=== PATIENT | female | born 1940 | race Caucasian/White ===

== ENCOUNTER 2025-01-05 15:40 | Inpatient (IN) | payer MEDICARE, MEDICAID ==
[~2025-01-05] VITALS: Ht 167.6 cm; Wt 76.7 kg
[2025-01-05] MEDS: SODIUM CHLORIDE 0.9% 1,000 ML IV SCH (02:10)
[2025-01-05 15:44] VITALS: PULSE 82; RESP 16; O2SAT 97
--- NOTE | 2025-01-05 15:56 | ED.PDOC ---
Back pain HPI HPI Comments 84y F who presents to the ED via EMS for chief complaint of back pain. EMS states pt is resident at [facility] and states pt who has history of dementia states pt was complaining of abdominal pain and EMS was called. EMS arrived on scene and states pt did not have abdominal pain but states she was having back pain. Pt rates her pain 10/10, constant, with no associated exacerbating or relieving factors. EMS notes pt did have diarrhea episode prior to ED arrival. Pt now in the ED, states she is having associated nausea and vomiting and states she is having pain on skin. Pt is noted to be [id number]. Pt denies any other symptoms at this time. Chief Complaint: Body Pain Time Seen by MD: 15:52 Reviewed Notes: Nurses Notes, Medications, Allergies Allergies: Coded Allergies: NO KNOWN ALLERGIES (Unverified , 01/05/25) Information Source: Patient, Emergency Med Personnel Mode of Arrival: EMS Brought in by: EMS Timing: Hours Duration: Since onset Location of Back pain: (L) Lower back, (B) Lower back Severity: Moderate Prehospital treatment: None Onset: Spontaneous History of: None Modifying Factors: Nothing Past Medical History PAST MEDICAL HISTORY: Asthma, CAD, CVA, Dementia, High Lipids Surgical History: Unknown [employer] History: Unknown Family History Family History: Unknown Social History Smoker: Quit Greater Than 1 Year Alcohol: Denies ETOH Use Drugs: Denies Drug Use Lives In: Assisted Care Constitutional: denies: chills, diaphoresis, fatigue, fever, malaise, sweats, weakness, others EENTM: denies: blurred vision, double vision, ear bleeding, ear discharge, ear drainage, ear pain, ear ringing, eye pain, eye redness, hearing loss, mouth pain, mouth swelling, nasal discharge, nose bleeding, nose congestion, nose pain, photophobia, tearing, throat pain, throat swelling, voice changes, others Respiratory: denies: cough, hemoptysis, orthopnea, SOB at rest, shortness of breath, SOB with excertion, stridor, wheezing, others Cardiovascular: denies: chest pain, dizzy spells, diaphoresis, Dyspnea on exertion, edema, irregular heart beat, left arm pain, lightheadedness, palpitations, PND, syncope, others Gastrointestinal: denies: abdomen distended, abdominal pain, blood streaked bowels, constipated, diarrhea, dysphagia, difficulty swallowing, hematemesis, melena, nausea, poor appetite, poor fluid intake, rectal bleeding, rectal pain, vomiting, others Genitourinary: denies: abnormal vagina bleeding, burning, dyspareunia, dysuria, flank pain, frequency, hematuria, incontinence, pain, , vagina discharge, urgency, others Neurological: denies: dizziness, fainting, headache, left sided numbness, left sided weakness, numbness, paresthesia, pre-existing deficit, right sided numbness, right sided weakness, seizure, speech problems, tingling, tremors, weakness, others Musculoskeletal: reports: back pain; denies: gout, joint pain, joint swelling, muscle pain, muscle stiffness, neck pain, others Integumetry: denies: bruises, change in color, change in hair/nails, dryness, laceration, lesions, lumps, rash, wounds, others Allergic/Immunocompromised: denies: Difficulty Healing, Frequent Infections, Hives, Itching, others Hematologic/Lymphatic: denies: anemia, blood clots, easy bleeding, easy bru ising, swollen glands, others Endocrine: denies: excessive hunger, excessive sweating, excessive thirst, e xcessive urination, flushing, intolerance to cold, intolerance to heat, unexplained weight gain, unexplained weight loss, others Psychiatric: denies: anxiety, bipolar disorder, depression, hopeless, panic disorder, schizophrenia, sleepless, suicidal, others All Other Systems: Reviewed and Negative Physical Exam General Appearance: Moderate Distress, Obese HEENT: Normal ENT Inspection, Pharynx Normal, TMs Normal Neck: Full Range of Motion, Non-Tender, Normal, Normal Inspection Respiratory: Chest Non-Tender, Lungs Clear, No Accessory Muscle Use, No Respiratory Distress, Normal Breath Sounds Cardiovascular: No Edema, No JVD, No Murmur, No Gallop, Normal Peripheral Pulses, Regular Rate/Rhythm Breast Exam: Deferred Gastrointestinal: Diffuse, No Organomegaly, Normal Bowel Sounds, Soft, Tenderness Genitalia: Deferred Pelvic: Deferred Rectal: Deferred Extremities: No calf tenderness, Normal capillary refill, No pedal edema Musculoskeletal : Apperance: Normal Neurologic: Alert, patient support representative II-XII nml as Tested, Motor Weakness, Normal Affect, Normal Mood, No Sensory Deficits Cerebellar Function: Normal Reflexes: Normal Skin: Dry, Normal Color, Rash (Rash to the entire abdomen and chest area), Warm Lymphatic: No Adenopathy Was a procedure done? Was a procedure done?: No Back Pain Differential Dx Differential Diagnosis: DJD, Fracture, Musculoskeletal Pain, Strain Other Differential Diagnosis chronic back pain., fracture, contusion, RA, arthritis, history of dementia X-Ray, Labs, Meds, VS Vital Signs Date Time Temp Pulse Resp B/P (MAP) Pulse Ox O2 Delivery O2 Flow Rate FiO2 01/05/25 18:36 84 18 116/74 01/05/25 17:38 83 20 101/63 01/05/25 17:30 83 20 101/63 (76) 98 01/05/25 15:44 82 16 97 Room Air* 0 21 01/05/25 15:44 97.9 82 16 146/74 (98) 97 97.9 01/05/25 15:44 97.9 82 16 146/74 97 97.9 Lab Test 01/05/25 16:22 01/05/25 15:55 Range/Units White Blood Count 10.8 4.4-10.8 10^3/uL Red Blood Count 4.26 4.0-5.20 10^6/uL Hemoglobin 11.2 L 12.2-16.2 g/dL Hematocrit 34.1 L 36.0-46.0 % Mean Corpuscular Volume 80.0 80.0-100.0 fL Mean Corpuscular Hemoglobin 26.4 L 28.0-32.0 pg Mean Corpuscular Hemoglobin Concent 32.9 32.0-36.0 g/dL Red Cell Distribution Width 16.3 H 11.8-14.3 % Platelet Count 308 140-450 10^3/uL Mean Platelet Volume 7.8 6.9-10.8 fL Neutrophils (%) (Auto) 71.1 37.0-80.0 % Lymphocytes (%) (Auto) 14.3 10.0-50.0 % Monocytes (%) (Auto) 9.5 0.0-12.0 % Eosinophils (%) (Auto) 4.5 0.0-7.0 % Basophils (%) (Auto) 0.6 0.0-2.0 % Neutrophils # (Auto) 7.7 1.6-8.6 10 ^3/uL Lymphocytes # (Auto) 1.5 0.4-5.4 10 ^3/uL Monocytes # (Auto) 1.0 0-1.3 10 ^3/uL Eosinophils # (Auto) 0.5 0-0.8 10 ^3/uL Basophils # (Auto) 0.1 0-0.2 10 ^3/uL Nucleated Red Blood Cells 0.1 % Sodium Level 131 L 136-145 mmol/L Potassium Level 4.5 3.5-5.1 mmol/L Chloride Level 99 98-107 mmol/L Carbon Dioxide Level 24 20-31 mmol/L Anion Gap 8 5-15 Blood Urea Nitrogen 11 9-23 mg/dL Creatinine 0.52 L 0.550-1.02 mg/dL Glomerular Filtration Rate Calc 93 >90 mL/min BUN/Creatinine Ratio 21.2 H 10.0-20.0 Serum Glucose 112 H 74-106 mg/dL Calcium Level 8.9 8.7-10.4 mg/dL Total Bilirubin 0.3 0.2-1.0 mg/dL Aspartate Amino Transferase (AST) 40 13-40 U/L Alanine Aminotransferase (ALT) 13 7-40 U/L Alkaline Phosphatase 99 46-116 U/L Total Protein 6.7 5.7-8.2 g/dL Albumin 3.9 3.2-4.8 g/dL Lipase 45 12-53 U/L Urine Color Pending Urine Clarity Pending Urine pH Pending Urine Specific [place] Pending Urine Protein Pending Urine Ketones Pending Urine Blood Pending Urine Nitrite Pending Urine Bilirubin Pending Urine Urobilinogen Pending Urine Leukocyte Esterase Pending Urine RBC Pending Urine Microscopic WBC Pending Urine Squamous Epithelial Cells Pending Urine Bacteria Pending Urine Glucose Pending Current Medications Medications (Trade) Dose Ordered Sig/Edward Route Start Time Stop Time Status Last Admin Morphine Sulfate 2 mg ONCE ONCE IV 01/05/25 16:00 01/05/25 16:01 DC 01/05/25 17:38 Ondansetron HCl (Zofran) 4 mg ONCE ONCE IV 01/05/25 16:00 01/05/25 16:01 DC 01/05/25 17:38 CAT scan of the abdomen and pelvis shows:IMPRESSION: Subsegmental dependent consolidation of the base of the right lower lobe. This is likely atelectasis but superimposed pneumonitis is not ruled out. There is trace right pleural effusion. Extensive coronary artery disease. Complex periumbilical hernia containing fat and trace inflammatory stranding and fluid. Correlate clinically with physical exam for periumbilical pain. Age-indeterminate moderate to severe compression deformity of T12. Correlate clinically for chronicity of back pain. MRI can be performed if clinically indicated. No renal, ureteral, or bladder calculus is identified. No hydronephrosis of either kidney. Descending and sigmoid colon diverticulosis without evidence of diverticulitis. The patient's CBC is within normal limits The chemistry panel is within normal limits The lipase is 45 An IV Hep-Lock was established The patient is being admitted to the hospitalist. Images Reviewed?: Images reviewed and evaluated by me Time of 1ST Reevaluation: 18:39 Reevaluation 1ST: Unchanged Patient Education/Counseling: Diagnosis, Treatment, Prognosis Family Education/Counseling: No Family Present SEPSIS Sepsis Screen Physician Orders Urinalysis (01/05/25 15:55) Ct Ab Pel Wo Con-No Oral Or Iv (01/05/25 15:55) Heplock Iv (01/05/25 15:55) Vital Signs Date Time Temp Pulse Resp B/P (MAP) Pulse Ox O2 Delivery O2 Flow Rate FiO2 01/05/25 18:36 84 18 116/74 01/05/25 17:38 83 20 101/63 01/05/25 17:30 83 20 101/63 (76) 98 01/05/25 15:44 82 16 97 Room Air* 0 21 01/05/25 15:44 97.9 82 16 146/74 (98) 97 97.9 01/05/25 15:44 97.9 82 16 146/74 97 97.9 Laboratory Tests Test 01/05/25 16:22 White Blood Count 10.8 10^3/uL (4.4-10.8) Medications Medications Dose Ordered Sig/Edward Route Start Time Stop Time Status Last Admin Dose Admin Morphine Sulfate 2 mg ONCE ONCE IV 01/05/25 16:00 01/05/25 16:01 DC 01/05/25 17:38 Ondansetron HCl 4 mg ONCE ONCE IV 01/05/25 16:00 01/05/25 16:01 DC 01/05/25 17:38 Departure 1 Departure Time of Disposition: 18:38 Impression: Primary Impression: Abdominal pain of unknown etiology Disposition: ADMITTED INPATIENT Admit to: Med Surg Condition: Fair Critical Care Note Critical Care Time?: No Stability Stability form required: No Heart Score Heart Score: Heart Score Response (Comments) Value History N/A 0 EKG N/A 0 Age N/A 0 Risk Factors N/A 0 Troponin N/A 0 Total 0 I personally scribed for ANNBAEL ROME MD ([email or web address]) on 01/05/25 at 15:56. Electronically submitted by Kelin Ayon ([facility]). ANNABEL ROME MD Jan 05, 2025 15:56
[2025-01-05 16:53] LABS: Hematocrit 34.1 % (36.0-46.0); Hemoglobin 11.2 g/dL (12.2-16.2); Mean Corpuscular Hemoglobin 26.4 pg (28.0-32.0); Mean Corpuscular Volume 80.0 fL (80.0-100.0); Nucleated Red Blood Cells % 0.1 %
[2025-01-05 17:08] LABS: Alanine Aminotransferase 13 U/L (7-40); Albumin 3.9 g/dL (3.2-4.8); Alkaline Phosphatase 99 U/L (46-116); Anion Gap 8 (5-15); BUN/Creatinine Ratio 21.2 (10.0-20.0); Blood Urea Nitrogen 11 mg/dL (9-23); Calcium 8.9 mg/dL (8.7-10.4); Carbon Dioxide 24 mmol/L (20-31); Chloride 99 mmol/L (98-107); Lipase 45 U/L (12-53); Potassium 4.5 mmol/L (3.5-5.1); Total Protein 6.7 g/dL (5.7-8.2)
--- NOTE | 2025-01-05 17:08 | DVH ---
COMPUTERIZED TOMOGRAPHY ABDOMEN AND PELVIS WITHOUT CONTRAST REASON FOR EXAM: pain COMPARISON: None TECHNIQUE: Spiral scans were acquired from the diaphragm to the symphysis pubis without intravenous c ontrast administration. 2-D coronal and sagittal reformatted images were provided. Radiation optimiza tion: All CT scans at this facility use at least one of these dose optimization techniques: Automated exposure control mA and/or kV adjustment per patient size (includes targeted exams where dose is mat ched to clinical indication) or iterative reconstruction. RADIATION DOSE: CTDI: 25.49 mGy DLP: 1223.80 mGy-cm FINDINGS: There is subsegmental dependent consolidation at the base of the right lower lobe, likely atelectasis . There is trace right pleural effusion. There is trace pericardial effusion. There is extensive radha nary artery calcification. The spleen is not enlarged. The liver is normal in size and contour . There is a [place] lobe of th e liver. The gallbladder is absent. Evaluation of the abdominal organs is suboptimal in the absence o f intravenous contrast. Unenhanced appearance of the pancreas is unremarkable. Evaluation of the abd omen is further degraded by extensive streak artifact from the patient's arms. There is a small hiata l hernia. The adrenal glands are normal. The kidneys are similar in size. There is no hydronephrosis of either kidney. No renal, ureteral, or bladder calculus is identified. There is no abdominal aorti c aneurysm. There is extensive atherosclerosis. No pathologic lymphadenopathy is identified by size criteria. There is no free fluid in the abdomen or pelvis. The uterus is absent. The ovaries are not seen. The urinary bladder is unremarkable. There is descending and sigmoid colon diverticulosis with out evidence of diverticulitis. The colonic stool burden is overall small. The appendix is normal. Th ere is a complex periumbilical hernia containing fat and trace inflammatory stranding and fluid. Ther e is no pathologic distention of the small bowel to suggest obstruction. There is demineralization of the bones. There is moderate to severe age-indeterminate compression deformity of T12. IMPRESSION: Subsegmental dependent consolidation of the base of the right lower lobe. This is likely atelectasis but superimposed pneumonitis is not ruled out. There is trace right pleural effusion. Extensive coronary artery disease. Complex periumbilical hernia containing fat and trace inflammatory stranding and fluid. Correlate cl inically with physical exam for periumbilical pain. Age-indeterminate moderate to severe compression deformity of T12. Correlate clinically for chronicit y of back pain. MRI can be performed if clinically indicated. No renal, ureteral, or bladder calculus is identified. No hydronephrosis of either kidney. Descending and sigmoid colon diverticulosis without evidence of diverticulitis.
[2025-01-05 17:09] LABS: Bilirubin, Total 0.3 mg/dL (0.2-1.0); Glucose 112 mg/dL (74-106); Sodium 131 mmol/L (136-145)
[2025-01-05] MEDS: ONDANSETRON HCL 4 MG/2 ML VIAL IV ONE (17:38)
[2025-01-05] MEDS: MORPHINE SULFATE INJ 2 MG/ml SYRG IV ONE (17:38)
[2025-01-05 18:41] LABS: Urine Protein, UAD Negative (Negative)
[2025-01-05 19:45] VITALS: PULSE 88; RESP 18; O2SAT 98
[2025-01-05] MEDS ORDERED: DOCUSATE SOD 100 MG CAP PO PRN (21:45)
[2025-01-05] MEDS ORDERED: NITROGLYCERIN 0.4 MG SL TAB SL PRN (22:00)
--- NOTE | 2025-01-05 22:02 | DVHHP2 ---
History of Present Illness Reason for Visit: Generalized weakness History of Present Illness The patient is a 84-year-old female with past medical history of Coronary artery disease, CVA, dementia, asthma, and hyperlipidemia who presented to [facility] ED with complaint of abdominal pain radiating to her back. Patient's symptoms progressively get worse with associated nausea, vomiting, rating pain 10/10 numeric scale, constant, getting worse that prompted this visit. Patient was seen and evaluated in the ED, laboratory data shows WBC 10.8, platelets 308, sodium 131, potassium 4.5, BUN 11, creatinine 0.52, glucose 112, calcium 8.9, blood pressure 116/74, heart rate 84, temperature 97.9 F, O2 saturation 97% on room. Urinalysis positive for urinary tract infection. Abdomen/pelvis CT revealing subsegmental dependent consolidations of the base of the right lower lobe, this is likely atelectasis but superimposed pneumonitis is not rule out; there is trace right pleural effusion. Complex periumbilical hernia containing fat and trace inflammatory stranding and fluid; correlate clinically with physical exam for periumbilical pain; Age indeterminate moderate to severe compression deformity of T12; correlate clinically for chronicity of back pain. Patient was started on IV antibiotic regimen Rocephin, please see medication orders section in the computer. On my assessment, patient denied chest pain, no headache, no dizziness, no diaphoresis, no shortness of breaths, no abdominal pain, nausea, or vomiting at this moment, no fever, no chills. Patient was admitted for further evaluation and medical management. Past Medical History Asthma, CAD, CVA, Dementia, High Lipids Past Surgical History Unknown Family History Reviewed, noncontributory to the management of this case. Past Social History The patient lives at assisted care living, quit smoking greater than 1 year, denies alcohol or illicit drugs abuse. Review of Systems Constitutional: Yes: Weakness; No: Fever, Chills, Sweats, Malaise, Other Eyes: No: Pain, Vision change, Conjunctivae inflammation, Eyelid inflammation, Other, Redness ENT: No: Ear pain, Ear discharge, Nose pain, Nose discharge, Nose congestion, Mouth pain, Mouth swelling, Throat pain, Throat swelling, Other Respiratory: No: Cough, Dry, Shortness of breath, SOB with excertion, Wheezing, Hemoptysis, Pleuritic Pain, Sputum, Wheezing, Other Cardiovascular: No: Chest Pain, Palpitations, Orthopnea, Paroxysmal Noc. Dyspnea, Edema, Lt Headedness, Other Gastrointestinal: Nausea, Vomiting, Abdominal Pain; No: Diarrhea, Constipation, Melena, Hematochezia, Other Genitourinary: No Dysuria, No Frequency, No Incontinence, No Hematuria, No Retention, No Other Musculoskeletal: back pain; No: other, neck pain, shoulder pain, arm pain, hand pain, leg pain, foot pain Skin: No: Rash, Lesions, Jaundice, Bruising, Other Neurological: No: Weakness, Numbness, Incoordination, Change in speech, Confusion, Seizures, Other Allergies: Coded Allergies: NO KNOWN ALLERGIES (Unverified , 01/05/25) Medications Current Medications Medications Dose Ordered Sig/Edward Route Start Time Stop Time Status Last Admin Dose Admin Ceftriaxone Sodium 50 ml @ 100 mls/hr DAILY@09 IV 01/06/25 09:00 UNV Doxycycline Hyclate 100 ml @ 50 mls/hr Q12H IV 01/05/25 21:45 UNV Sodium Chloride 1,000 ml @ 60 mls/hr [id number] IV 01/05/25 21:45 UNV Acetaminophen/ Hydrocodone Bitart 1 tab Q4HP PRN PO 01/05/25 21:45 UNV Ondansetron HCl 4 mg Q4HP PRN IV 01/05/25 21:45 UNV Docusate Sodium 100 mg BIDPRN PRN PO 01/05/25 21:45 UNV Acetaminophen 650 mg Q6HP PRN PO 01/05/25 21:45 UNV Exam Vital Signs Vital Signs Date Time Temp Pulse Resp B/P (MAP) Pulse Ox O2 Delivery O2 Flow Rate FiO2 01/05/25 18:36 84 18 116/74 01/05/25 17:30 98 01/05/25 15:44 Room Air* 0 21 01/05/25 15:44 97.9 97.9 General Appearance: Alert, Cooperative, No acute distress, Other (Oriented x2) HEENT: Atraumatic, PERRLA, EOMI, Mucous membr. moist/pink Respiratory: Normal air movement Cardiovascular: Regular rate, Normal S1, Normal S2, No murmurs Abdominal: Normal bowel sounds, Soft, No tenderness, No hepatospenomegaly, No masses Extremities: No clubbing, No cyanosis, No edema, Normal pulses, No tenderness/swelling Skin: No rashes, No significant lesion Neuro: Normal speech, Normal tone, Sensation intact, Cranial nerves 3-12 NL, Reflexes 2+, Other (Generalized weakness) Psych/Mental Status: Mental status NL, Mood NL Labs/Xrays Labs Test 01/05/25 16:22 01/05/25 15:55 Range/Units White Blood Count 10.8 4.4-10.8 10^3/uL Red Blood Count 4.26 4.0-5.20 10^6/uL Hemoglobin 11.2 L 12.2-16.2 g/dL Hematocrit 34.1 L 36.0-46.0 % Mean Corpuscular Volume 80.0 80.0-100.0 fL Mean Corpuscular Hemoglobin 26.4 L 28.0-32.0 pg Mean Corpuscular Hemoglobin Concent 32.9 32.0-36.0 g/dL Red Cell Distribution Width 16.3 H 11.8-14.3 % Platelet Count 308 140-450 10^3/uL Mean Platelet Volume 7.8 6.9-10.8 fL Neutrophils (%) (Auto) 71.1 37.0-80.0 % Lymphocytes (%) (Auto) 14.3 10.0-50.0 % Monocytes (%) (Auto) 9.5 0.0-12.0 % Eosinophils (%) (Auto) 4.5 0.0-7.0 % Basophils (%) (Auto) 0.6 0.0-2.0 % Neutrophils # (Auto) 7.7 1.6-8.6 10 ^3/uL Lymphocytes # (Auto) 1.5 0.4-5.4 10 ^3/uL Monocytes # (Auto) 1.0 0-1.3 10 ^3/uL Eosinophils # (Auto) 0.5 0-0.8 10 ^3/uL Basophils # (Auto) 0.1 0-0.2 10 ^3/uL Nucleated Red Blood Cells 0.1 % Sodium Level 131 L 136-145 mmol/L Potassium Level 4.5 3.5-5.1 mmol/L Chloride Level 99 98-107 mmol/L Carbon Dioxide Level 24 20-31 mmol/L Anion Gap 8 5-15 Blood Urea Nitrogen 11 9-23 mg/dL Creatinine 0.52 L 0.550-1.02 mg/dL Glomerular Filtration Rate Calc 93 >90 mL/min BUN/Creatinine Ratio 21.2 H 10.0-20.0 Serum Glucose 112 H 74-106 mg/dL Calcium Level 8.9 8.7-10.4 mg/dL Total Bilirubin 0.3 0.2-1.0 mg/dL Aspartate Amino Transferase (AST) 40 13-40 U/L Alanine Aminotransferase (ALT) 13 7-40 U/L Alkaline Phosphatase 99 46-116 U/L Total Protein 6.7 5.7-8.2 g/dL Albumin 3.9 3.2-4.8 g/dL Lipase 45 12-53 U/L Urine Color Light-yellow Yellow Urine Clarity Turbid H Clear Urine pH 5.5 5.0-9.0 Urine Specific [place] 1.014 1.001-1.035 Urine Protein Negative Negative Urine Ketones Negative Negative Urine Blood Negative Negative /uL Urine Nitrite Negative Negative Urine Bilirubin Negative Negative Urine Urobilinogen Normal Negative mg/dL Urine Leukocyte Esterase 1+ Negative /uL Urine RBC 4 0 - 4 /hpf Urine Microscopic WBC 4 0-5 /HPF Urine Squamous Epithelial Cells Few <5 /hpf Urine Bacteria Few H None Seen /hpf Urine Hyaline Casts Few 0 - 2 /lpf Urine Glucose Normal Normal mg/dL PATIENT: MARILU TIWARI ACCT: [id number] UNIT: [id number] : 1940 LOC: ER ROOM / BED: / AGE / SEX: 84 / F ADM STATUS: REG ER SERVICE [id number] ORDERING PHYSICIAN: ANNABEL ROME MD PROCEDURE(s): ABPL - CT AB PEL WO CON-NO ORAL OR IV REASON: pain ORDER NUMBER(s): [id number], ACCESSION NUMBER(s): [id number] COMPUTERIZED TOMOGRAPHY ABDOMEN AND PELVIS WITHOUT CONTRAST REASON FOR EXAM: pain COMPARISON: None TECHNIQUE: Spiral scans were acquired from the diaphragm to the symphysis pubis without intravenous contrast administration. 2-D coronal and sagittal reformatted images were provided. Radiation optimization: All CT scans at this facility use at least one of these dose optimization techniques: Automated exposure control mA and/or kV adjustment per patient size (includes targeted exa ms where dose is matched to clinical indication) or iterative reconstruction. RADIATION DOSE: CTDI: 25.49 mGy DLP: 1223.80 mGy-cm FINDINGS: There is subsegmental dependent consolidation at the base of the right lower lobe, likely atelectasis. There is trace right pleural effusion. There is trace pericardial effusion. There is extensive coronary artery calcification. The spleen is not enlarged. The liver is normal in size and contour. There is a [place] lobe of the liver. The gallbladder is absent. Evaluation of the abdominal organs is suboptimal in the absence of intravenous contrast. Unenhanced appearance of the pancreas is unremarkable. Evaluation of the abdomen is further degraded by extensive streak artifact from the patient's arms. There is a small hiatal hernia. The adrenal glands are normal. The kidneys are similar in size. There is no hydronephrosis of either kidney. No renal, ureteral, or bladder calculus is identified. There is no abdominal aortic aneurysm. There is extensive atherosclerosis. No pathologic lymphadenopathy is identified by size criteria. There is no free fluid in the abdomen or pelvis. The uterus is absent. The ovaries are not seen. The urinary bladder is unremarkable. There is descending and sigmoid colon diverticulosis without evidence of diverticulitis. The colonic stool burden is overall small. The appendix is normal. There is a complex periumbilical hernia containing fat and trace inflammatory stranding and fluid. There is no pathologic distention of the small bowel to suggest obstruction. There is demineralization of the bones. There is moderate to severe age-indeterminate compression deformity of T12. IMPRESSION: Subsegmental dependent consolidation of the base of the right lower lobe. This is likely atelectasis but superimposed pneumonitis is not ruled out. There is trace right pleural effusion. Extensive coronary artery disease. Complex periumbilical hernia containing fat and trace inflammatory stranding and fluid. Correlate clinically with physical exam for periumbilical pain. Age-indeterminate moderate to severe compression deformity of T12. Correlate clinically for chronicity of back pain. MRI can be performed if clinically indicated. No renal, ureteral, or bladder calculus is identified. No hydronephrosis of either kidney. Descending and sigmoid colon diverticulosis without evidence of diverticulitis. SEPSIS Sepsis Screen Date sepsis recognized/suspect: Jan 05, 2025 Time Sepsis recognized/suspect: 1542 Recent Procedure: No On Antibiotic Therapy: No Respiratory Rate >20: No Heart Rate >90: No Temp<36 C (96.8 F) or >38.3 C: No SBP <90 or MAP <65 mmHG: No New Acute Mental Status Change: No Is the patient on CPAP, BIPAP,: No Physician Orders Ct Ab Pel Wo Con-No Oral Or Iv (01/05/25 15:55) Heplock Iv (01/05/25 15:55) Urine Bacterial Culture (01/05/25 21:32) Ceftriaxone 1gm/50ml D5w (Rocephin) (01/06/25 09:00) Ceftriaxone 1gm/50ml D5w (Rocephin) (01/05/25 21:45) Doxycycline 100mg/100ml (Vibramycin) (01/05/25 21:45) Allergies (01/05/25:32) Code Status (01/05/25:32) Sodium Chloride 0.9% (01/05/25 21:45) Oxygen Per Hour (01/05/25:32) Hydrocodone-Acet 5/325mg Tab (Atka (01/05/25 21:45) Ondansetron Hcl (Zofran) (01/05/25 21:45) Docusate Sodium Capsule (Colace Capsule) (01/05/25 21:45) Fall Risk Precautions In Place QSHIFT (01/05/25:32) Complete Blood Count (01/06/25 04:00) Comprehensive Metabolic Panel (01/06/25 04:00) Cardiac Diet-2gna,Lofat,Lochol (01/06/25 Breakfast) Condition: Serious (01/05/25 21:32) Acetaminophen Tablet (Tylenol Tablet) (01/05/25 21:45) Maintain Bed Rest (01/05/25 21:32) Sequential Compression Device (01/05/25 ) Admit (01/05/25 21:59) Nitroglycerin Sublingual (Ntrostat Subli (01/05/25 22:00) Morphine Sulfate Injection (01/05/25 22:00) Stat Ekg For Chest Pain (01/05/25 21:59) Notify Md Of Changes From Base (01/05/25 21:59) [employer] For 24 Hours (01/05/25 21:59) Emergency Dysrhythmia Protocol (01/05/25 21:59) Rhythm Strips Once Every Shift (01/05/25 21:59) Oxygen By Nasal Cannula (01/05/25 21:59) Vital Signs Date Time Temp Pulse Resp B/P (MAP) Pulse Ox O2 Delivery O2 Flow Rate FiO2 01/05/25 18:36 84 18 116/74 01/05/25 17:38 83 20 101/63 01/05/25 17:30 83 20 101/63 (76) 98 01/05/25 15:44 82 16 97 Room Air* 0 21 01/05/25 15:44 97.9 82 16 146/74 (98) 97 97.9 01/05/25 15:44 97.9 82 16 146/74 97 97.9 Laboratory Tests Test 01/05/25 16:22 White Blood Count 10.8 10^3/uL (4.4-10.8) Medications Medications Dose Ordered Sig/Edward Route Start Time Stop Time Status Last Admin Dose Admin Morphine Sulfate 2 mg ONCE ONCE IV 01/05/25 16:00 01/05/25 16:01 DC 01/05/25 17:38 2 MG Ondansetron HCl 4 mg ONCE ONCE IV 01/05/25 16:00 01/05/25 16:01 DC 01/05/25 17:38 4 MG Assessment/Plan Assessment/Plan Generalized weakness Pneumonitis Hyponatremia Urinary tract infection Abdominal pain of unknown etiology Plan 1. Admit to telemetry unit 2. Breathing treatment 3. Pain control management 4. IV antibiotic management 5. Management of fluids and electrolytes 6. Consultation for hospitalist 7. Diagnostic test abdomen/pelvis CT 8. DVT prophylaxis-on SCDs 9. Repeat labs CBC, CMP in a.m. 10. Home medication reviewed and reconciled 11. Continue with current medical management 12. Treatment plan discussed with patient and RN. Patient verbalized understanding. Plan discussed with: Patient, Other (RN) My Orders Orders - JEFFREY DUMONT DNP Procedure Category Date Status Time Urine Bacterial MARICHUY 01/05/25 In Process Culture 21:32 Ceftriaxone 1gm/50ml PHA 01/06/25 Logged D5w (Rocephin) 09:00 Ceftriaxone 1gm/50ml PHA 01/05/25 Logged D5w (Rocephin) 21:45 Doxycycline PHA 01/05/25 Logged 100mg/100ml 21:45 Allergies KYM 01/05/25 In Process 21:32 Code Status CODE 01/05/25 Transmitted 21:32 Sodium Chloride 0.9% [facility] 01/05/25 Logged 21:45 Oxygen Per Hour RT 01/05/25 Transmitted 21:32 Hydrocodone-Acet PHA 01/05/25 Logged 5/325mg Tab (Atka 21:45 Ondansetron Hcl PHA 01/05/25 Logged (Zofran) 21:45 Docusate Sodium PHA 01/05/25 Logged Capsule (Colace 21:45 Fall Risk Precautions [facility] 01/05/[address] 21:32 Complete Blood Count LAB 01/06/25 Verified 04:00 Comprehensive LAB 01/06/25 Verified Metabolic Panel 04:00 Cardiac DIET 01/06/25 Transmitted Diet-2gna,Lofat,Lochol Breakfast Condition: Serious [facility] 01/05/25 In Process 21:32 Acetaminophen Tablet [facility] 01/05/25 Logged (Tylenol Tablet) 21:45 Maintain Bed Rest [facility] 01/05/25 In Process 21:32 Sequential [facility] 01/05/25 In Process Compression Device Admit ADMIT 01/05/25 Transmitted 21:59 Nitroglycerin [facility] 01/05/25 Transmitted Sublingual (Ntrostat 22:00 Morphine Sulfate PHA 01/05/25 Transmitted Injection 22:00 Stat Ekg For Chest [facility] 01/05/25 Transmitted Pain 21:59 Notify Md Of Changes [facility] 01/05/25 Transmitted From Base 21:59 [employer] For [facility] 01/05/25 Transmitted 24 Hours 21:59 Emergency Dysrhythmia [facility] 01/05/25 Transmitted Protocol 21:59 Rhythm Strips Once [facility] 01/05/25 Transmitted Every Shift 21:59 Oxygen By Nasal RT 01/05/25 Transmitted Cannula 21:59 Problem List: (1) Generalized weakness (2) Pneumonitis (3) Hyponatremia (4) Urinary tract infection (5) Abdominal pain of unknown etiology Date of Service: Jan 05, 2025 Billing Provider: JEFFREY DUMONT DNP Common Visit Codes: [id number] INP/OBS CARE (HIGH) JEFFREY DUMONT DNP Jan 05, 2025 22:02
[2025-01-05] MEDS: cefTRIAXone 1GM/50ML D5W 50 ML IV ONE (22:55)
[2025-01-05] MEDS: DOXYCYCLINE 100MG/100ML 100 ML IV SCH (23:33)
[2025-01-06 05:04] VITALS: BP 106/68; PULSE 83; RESP 16; TEMP 98.1; O2SAT 93
[2025-01-06 07:50] VITALS: PULSE 85; RESP 12; O2SAT 95
[2025-01-06 08:40] LABS: Hematocrit 35.4 % (36.0-46.0); Hemoglobin 11.6 g/dL (12.2-16.2); Mean Corpuscular Hemoglobin 26.3 pg (28.0-32.0); Mean Corpuscular Volume 79.7 fL (80.0-100.0); Nucleated Red Blood Cells % 0.0 %
[2025-01-06 09:03] LABS: Alanine Aminotransferase 16 U/L (7-40); Alkaline Phosphatase 99 U/L (46-116); Anion Gap 7 (5-15); BUN/Creatinine Ratio 16.7 (10.0-20.0); Blood Urea Nitrogen 9 mg/dL (9-23); Calcium 9.7 mg/dL (8.7-10.4); Carbon Dioxide 27 mmol/L (20-31); Chloride 100 mmol/L (98-107); Glucose 90 mg/dL (74-106); Potassium 4.4 mmol/L (3.5-5.1); Total Protein 7.3 g/dL (5.7-8.2)
[2025-01-06 09:04] LABS: Albumin 4.2 g/dL (3.2-4.8); Bilirubin, Total 0.4 mg/dL (0.2-1.0)
[2025-01-06 09:06] LABS: Sodium 134 mmol/L (136-145)
[2025-01-06] MEDS: cefTRIAXone 1GM/50ML D5W 50 ML IV SCH (09:13)
[2025-01-06] MEDS: SODIUM CHLORIDE 0.9% 1,000 ML IV SCH (14:15)
[2025-01-06] MEDS: OLANZapine 5 MG TAB PO ONE (15:43)
[2025-01-06 15:49] LABS: COVID19 ANTIGEN SOFIA FIA NEGATIVE (NEGATIVE)
--- NOTE | 2025-01-06 16:45 | DVHPNRES ---
Progress Note Date Seen: Jan 06, 2025 Resident Creating Document: POLI IBARRA RESIDENT Medical Necessity Reason Pt with a Central, PICC or Fol: Yes The following are medically ne: Waters Catheter Reason for waters catheter: Bladder Retention/Obstruc Subjective Review of Systems This is a 84-year-old female with past medical history of CAD, Alzheimer's dementia, asthma, HLD, DM2, HTN [facility] with the complaint of abdominal pain, nausea, vomiting. As per ER physician note, EMS brought the patient with abdominal pain which is sudden onset and, radiating to the back, progressively worsen with nausea and vomiting, 10/10 intensity, constant. Patient currently AAO 2 to3. Spoke to Lester Garner reported patient having Alzheimer's dementia. Patient evaluated in bedside, declined cognitive function, looks irritable, poor judgment, forgetfulness, subtle personality changes, repeating questions. No fever, cough, hematuria, SOB, any focal neurological deficit noted. During admission patient afebrile and vitals near normal limits. On labs studies WBC 10.8> 8.7, hemoglobin 11.2> 11.6, UA-turbid, 1+ leukocyte esterase, RBC 4, WBC 4, bacteria few. THS 1.46, hemoglobin A1c 5.5, ammonia <10 . Serum sodium> 131 134, lipase 45. CT abdomen and pelvis: Subsegmental dependent consolidation of the base of the right lower lobe. This is likely atelectasis but superimposed pneumonitis is not ruled out. There is trace right pleural effusion. Complex periumbilical hernia containing fat and trace inflammatory stranding and fluid. Correlate clinically with physical exam for periumbilical pain. Age-indeterminate moderate to severe compression deformity of T12. Correlate clinically for chronicity of back pain. PAST MEDICAL HISTORY: CAD, Alzheimer's dementia, asthma, HLD, DM2, HTN Surgical History: Unknown Family History: Unknown Smoker: Ex-smoker Alcohol: Denies ETOH Use Drugs: Denies Drug Use Lives In: Assisted Care PCP: selected Allergy: No known allergy Objective vital signs Vital Sign Date Time Temp Pulse Resp B/P (MAP) Pulse Ox O2 Delivery O2 Flow Rate FiO2 01/06/25 16:00 98.1 98 16 152/65 (94) 95 98.1 01/06/25 07:50 Room Air* 0 21 Total Intake and Output 01/05/25 01/05/25 01/06/25 15:00 23:00 07:00 Intake Total 150 ml Balance 150 ml medications Current Medications Medications Dose Ordered Sig/Edward Route Start Time Stop Time Status Last Admin Dose Admin Ceftriaxone Sodium 50 ml @ 100 mls/hr DAILY@09 IV 01/06/25 09:00 01/06/25 09:13 100 MLS/HR Acetaminophen/ Hydrocodone Bitart 1 tab Q4HP PRN PO 01/05/25 21:45 Ondansetron HCl 4 mg Q4HP PRN IV 01/05/25 21:45 Docusate Sodium 100 mg BIDPRN PRN PO 01/05/25 21:45 Acetaminophen 650 mg Q6HP PRN PO 01/05/25 21:45 Nitroglycerin 0.4 mg Q5MINP PRN SL 01/05/25 22:00 Morphine Sulfate 2 mg Q30M PRN IV 01/05/25 22:00 Enalapril Maleate 5 mg DAILY PO 01/07/25 10:00 Pravastatin Sodium 40 mg HS PO 01/06/25 22:00 Sodium Chloride 1,000 ml @ 100 mls/hr Q10H IV 01/06/25 14:15 Quetiapine Fumarate 50 mg HS PO 01/06/25 22:00 Olanzapine 2.5 mg BID PO 01/06/25 22:00 Examination General examination- HEENT- PEERLA, no acute nasal discharge Cardiovascular- S1-S2 audible, rate and rhythm regular, no murmur Respiratory- CTAB, no wheeze or rhonchi Gastrointestinal-umbilical hernia present, tender on deep palpation epigastric region, bowel sound+. Musculoskeletal-no acute joint swelling or tenderness or redness Lower extremity- no edema, no joint swelling Neurological- awake and alert; no focal deficits; oriented to self only Skin- no acute rash or purpura laboratory and microbiology Laboratory Tests 01/06/25 08:21 Test 01/06/25 08:21 Range/Units Serum Glucose 90 74-106 mg/dL Microbiology Date/Time Source Procedure Growth Status 01/05/25 15:55 Voided Urine Urine Culture - Preliminary Resulted Labs and/or images reviewed: Labs reviewed by me, Image(s) reviewed by me Problem List/Assessment/Plan Problem List/Assessment/Plan # Acute toxic/metabolic Metabolic encephalopathy infection likely colitis, pneumonia, UTI -Patient came with abdominal pain, nausea, vomiting -Patient cognitive function declining -CT abdomen and pelvis: Subsegmental dependent consolidation of the base of the right lower lobe. This is likely atelectasis but superimposed pneumonitis is not ruled out. There is trace right pleural effusion. Complex periumbilical hernia containing fat and trace inflammatory stranding and fluid. Correlate clinically with physical exam for periumbilical pain. -UA: Turbid, leukocyte esterase 1+, RBC 4, WBC 4, bacteria few -Lipase 45 -Continue ceftriaxone 1 g IV daily -Urine culture we will follow -Monitor vital #Moderate to severe compression deformity of T12. Correlate clinically for chronicity of back pain. -CT abdomen [id number] moderate to severe compression deformity of T12. Correlate clinically for chronicity of back pain. -continue Tylenol 650 mg p.o. q.6 p.r.n. # Hyponatremia -Sodium level 131 on admission -NSS 100 cc/hours -BMP # Normocytic hypochromic anemia -HEMOGLOBIN 11.2 , HCT 34.1 -MCV 80, MCH 26.4 -RDW 16.3 -Ferritin iron profile ordered -No signs symptoms of active bleeding -Stool for occult blood test # Complex umbilical hernia -CT abdomen pelvis: Complex periumbilical hernia containing fat and trace inflammatory stranding and fluid. -on examination, umbilical hernia noted -surgery consult # Urinary tract infection -UA: Turbid, leukocyte esterase 1+, RBC 4, WBC 4, bacteria few -NSS 100 cc/hours -Continue ceftriaxone 1 g IV daily -Urine culture # Alzheimer's dementia with behavioral disturbance -Patient looks irritable during examination -Olanzapine 2.5 mg p.o. b.i.d. -Quetiapine 50 mg q.h.s. # Essential hypertension -Enalapril 5 mg p.o. daily-home medication -Monitor blood pressure # Hyperlipidemia -pravastatin 40 mg daily -lipid profile # Obesity, BMI 30.7 -Lifestyle modification Diet: Cardiac diet DVT prophylaxis: Lovenox 30 mg sc daily GI prophylaxis: Pantoprazole 40 mg p.o. daily. Goals of care discussed with the patient's son for 20 minutes; Code status DNR Case discussed with Dr. Singleton Plan discussed with: Other (Nurse) Addendum Addendum Addendum I was physically present for the burk portions of the service provided to patient by THE RESIDENT. I have reviewed the documentation, discussed the case with resident and agree with the resident's documentation except as noted. Also the patient's clinical case was discussed with the patient's nurse. This medical document was created using an electronic medical record system with computerized dictation system. Although this document has been carefully reviewed, there might still be some phonetic and typographical errors. These areas are purely typographical due to imperfections of the software programs, and do not reflect any compromise in the patient's medical care. Late signature. Date of Service: Jan 06, 2025 Billing Provider: ALEJANDRA SINGLETON MD Common Visit Codes: [id number] INP/OBS CARE(HIGH) Secondary Visit Codes: [id number] CARE PLAN 30 MINUTES (20 minutes) POLI IBARRA RESIDENT Jan 06, 2025 16:45 ALEJANDRA SINGLETON MD Jan 08, 2025 13:00
[2025-01-06 18:15] LABS: Urine Protein, UAD Negative (Negative)
--- NOTE | 2025-01-06 18:56 | DVHINCON2 ---
Date of service: Jan 06, 2025 Allergies: Coded Allergies: NO KNOWN ALLERGIES (Unverified , 01/05/25) Current Medications Current Medications Medications (Trade) Dose Ordered Sig/Edward Route PRN Reason Start Time Stop Time Status Last Admin Ceftriaxone Sodium 50 ml @ 100 mls/hr DAILY@09 IV 01/06/25 09:00 01/06/25 09:13 Doxycycline Hyclate 100 ml @ 50 mls/hr Q12H IV 01/05/25 21:45 01/06/25 14:15 DC 01/06/25 10:12 Sodium Chloride 1,000 ml @ 60 mls/hr [id number] IV 01/05/25 21:45 01/06/25 14:18 DC 01/05/25 02:10 Acetaminophen/ Hydrocodone Bitart ([place] 5/325MG Tab) 1 tab Q4HP PRN PO MODERATE PAIN (4-6 PAIN SCALE) 01/05/25 21:45 Ondansetron HCl (Zofran) 4 mg Q4HP PRN IV NAUSEA / VOMITING 01/05/25 21:45 Docusate Sodium (Colace Capsule) 100 mg BIDPRN PRN PO FOR CONSTIPATION 01/05/25 21:45 Acetaminophen (Tylenol Tablet) 650 mg Q6HP PRN PO PAIN SCALE 1-3 OR TEMP>100.4 01/05/25 21:45 Nitroglycerin (Ntrostat Sublingual) 0.4 mg Q5MINP PRN SL FOR CHEST PAIN 01/05/25 22:00 Morphine Sulfate 2 mg Q30M PRN IV FOR CHEST PAIN 01/05/25 22:00 Quetiapine Fumarate (SEROquel TABLET) 25 mg HS PO 01/06/25 22:00 01/06/25 15:29 DC Enalapril Maleate (Vasotec Tablet) 5 mg DAILY PO 01/07/25 10:00 Pravastatin Sodium (Pravachol Tablet) 40 mg HS PO 01/06/25 22:00 Sodium Chloride 1,000 ml @ 100 mls/hr Q10H IV 01/06/25 14:15 Quetiapine Fumarate (SEROquel TABLET) 50 mg HS PO 01/06/25 22:00 Olanzapine (ZyPREXA Tablet) 2.5 mg BID PO 01/06/25 22:00 Enoxaparin Sodium (Lovenox) 30 mg DAILY SC 01/07/25 10:00 Pantoprazole Sodium (Protonix Tablet) 40 mg DAILY@0600 PO 01/07/25 06:00 Vital Signs Vital Signs Date Time Temp Pulse Resp B/P (MAP) Pulse Ox O2 Delivery O2 Flow Rate FiO2 01/06/25 16:00 97 01/06/25 16:00 98.1 16 152/65 (94) 95 98.1 01/06/25 07:50 Room Air* 0 21 Labs/Diagnostic Data Labs Test 01/06/25 17:39 01/06/25 14:25 01/06/25 13:20 01/06/25 08:21 Range/Units Urine Color Light-yellow Yellow Urine Clarity Clear Clear Urine pH 6.5 5.0-9.0 Urine Specific [place] 1.016 1.001-1.035 Urine Protein Negative Negative Urine Ketones Trace Negative Urine Blood Negative Negative /uL Urine Nitrite Negative Negative Urine Bilirubin Negative Negative Urine Urobilinogen Normal Negative mg/dL Urine Leukocyte Esterase Negative Negative /uL Urine RBC 1 0 - 4 /hpf Urine Microscopic WBC 5 0-5 /HPF Urine Squamous Epithelial Cells None seen <5 /hpf Urine Bacteria None seen None Seen /hpf Urine Glucose Normal Normal mg/dL Influenza Type A Antigen Negative Negative Influenza Type B Antigen Negative Negative SARS-CoV-2 Antigen (Rapid) Negative NEGATIVE Ammonia < 10 L 11-32 umol/L White Blood Count 8.7 4.4-10.8 10^3/uL Red Blood Count 4.43 4.0-5.20 10^6/uL Hemoglobin 11.6 L 12.2-16.2 g/dL Hematocrit 35.4 L 36.0-46.0 % Mean Corpuscular Volume 79.7 L 80.0-100.0 fL Mean Corpuscular Hemoglobin 26.3 L 28.0-32.0 pg Mean Corpuscular Hemoglobin Concent 32.9 32.0-36.0 g/dL Red Cell Distribution Width 16.7 H 11.8-14.3 % Platelet Count 307 140-450 10^3/uL Mean Platelet Volume 7.8 6.9-10.8 fL Neutrophils (%) (Auto) 66.0 37.0-80.0 % Lymphocytes (%) (Auto) 19.1 10.0-50.0 % Monocytes (%) (Auto) 10.5 0.0-12.0 % Eosinophils (%) (Auto) 3.8 0.0-7.0 % Basophils (%) (Auto) 0.6 0.0-2.0 % Neutrophils # (Auto) 5.8 1.6-8.6 10 ^3/uL Lymphocytes # (Auto) 1.7 0.4-5.4 10 ^3/uL Monocytes # (Auto) 0.9 0-1.3 10 ^3/uL Eosinophils # (Auto) 0.3 0-0.8 10 ^3/uL Basophils # (Auto) 0.1 0-0.2 10 ^3/uL Nucleated Red Blood Cells 0.0 % Sodium Level 134 L 136-145 mmol/L Potassium Level 4.4 3.5-5.1 mmol/L Chloride Level 100 98-107 mmol/L Carbon Dioxide Level 27 20-31 mmol/L Anion Gap 7 5-15 Blood Urea Nitrogen 9 9-23 mg/dL Creatinine 0.54 L 0.550-1.02 mg/dL Glomerular Filtration Rate Calc 92 >90 mL/min BUN/Creatinine Ratio 16.7 10.0-20.0 Serum Glucose 90 74-106 mg/dL Hemoglobin A1c 5.5 <5.7 % A1C Calcium Level 9.7 8.7-10.4 mg/dL Total Bilirubin 0.4 0.2-1.0 mg/dL Aspartate Amino Transferase (AST) 38 13-40 U/L Alanine Aminotransferase (ALT) 16 7-40 U/L Alkaline Phosphatase 99 46-116 U/L Total Protein 7.3 5.7-8.2 g/dL Albumin 4.2 3.2-4.8 g/dL Vitamin D 25-Hydroxy 34.4 30.0-100 ng/mL Thyroid Stimulating Hormone (TSH) 1.46 0.55-4.78 uIU/mL Test 01/05/25 16:22 01/05/25 15:55 Range/Units Lipase 45 12-53 U/L Urine Hyaline Casts Few 0 - 2 /lpf Microbiology Date/Time Source Procedure Growth Status 01/05/25 15:55 Voided Urine Urine Culture - Preliminary Resulted Assessment [id number] AFEBRILE VSS ABD SOFT TENDER RUQ NON ACUTE CT SCAN ABD R/O GASTRITIS, CONSTIPATION CLOSE OBSERVATION CONSIDER GI EVAL FOR POSSIBLE EGD Plan discussed with: ANTONIO Olivarez MD Jan 06, 2025 18:56
[2025-01-06] MEDS: OLANZapine 5 MG TAB PO SCH (21:05)
[2025-01-06] MEDS: PRAVASTATIN SODIUM 20 MG TAB PO SCH (21:05)
--- NOTE | 2025-01-06 21:59 | DVHINCON2 ---
DATE OF CONSULTATION: 01/06/2025 HISTORY OF PRESENT ILLNESS: An 84 years old, complains of right upper quadrant pain and upper abdominal swelling and this pain is radiating to her back. She also has some nausea, vomiting, possible constipation. No fever or chills. No hematemesis or melena. No bleeding per rectum. PAST MEDICAL HISTORY: Asthma, CAD, CVA, dementia, high lipids. PAST SURGICAL HISTORY: She probably has open gallbladder surgery done. PHYSICAL EXAMINATION: VITAL SIGNS: Afebrile. Stable signs. HEENT: No evidence of pallor, cyanosis or jaundice. NECK: Supple, nontender with no thyromegaly or lymphadenopathy. CHEST AND LUNGS: Clear. HEART: Within normal limits. ABDOMEN: Soft. She has a reducible ventral hernia and she is tender in the right upper quadrant, etiology is not clear. CT scan is not indicating any acute condition. PLAN: Based upon my clinical impression, she needs to be evaluated by GI for possible rule out gastritis or gastric ulcer and at this point, no acute surgical intervention is indicated based upon her evaluation and she needs close observation and possible GI evaluation. MD LIVIA White/DANIA/SEFERINO TID: [id number] RECEIPT: [id number] cc: Rob Montanez
[2025-01-06] MEDS: diphenhdrAMINE HCL 50 MG/1 ML VL IM ONE (23:17)
[2025-01-07] VITALS (7 sets, daily range): BP systolic 116–124; BP diastolic 75–79; PULSE 65–97; RESP 15–18; TEMP 97.4–98.7; O2SAT 95–100
[2025-01-07] MEDS: PANTOPRAZOLE 40 MG TAB PO SCH (05:28)
[2025-01-07 05:48] LABS: Anion Gap 7 (5-15); Carbon Dioxide 25 mmol/L (20-31); Chloride 100 mmol/L (98-107); Potassium 4.1 mmol/L (3.5-5.1)
[2025-01-07 05:49] LABS: Calcium 8.9 mg/dL (8.7-10.4)
[2025-01-07 05:54] LABS: BUN/Creatinine Ratio 18.0 (10.0-20.0); Blood Urea Nitrogen 9 mg/dL (9-23)
[2025-01-07 05:56] LABS: Total Iron Binding Capacity 331.0 ug/dL (250-425)
[2025-01-07 05:58] LABS: Glucose 125 mg/dL (74-106); Sodium 132 mmol/L (136-145)
[2025-01-07 06:00] LABS: Iron 47.0 ug/dL (50-170)
[2025-01-07 06:03] LABS: Hematocrit 34.6 % (36.0-46.0); Hemoglobin 11.4 g/dL (12.2-16.2); Mean Corpuscular Hemoglobin 26.4 pg (28.0-32.0); Mean Corpuscular Volume 79.9 fL (80.0-100.0); Nucleated Red Blood Cells % 0.0 %
[2025-01-07] MEDS: ENOXAPARIN SOD 30 MG/0.3 ML SYRINGE SC SCH (10:16)
[2025-01-07] MEDS: ENALAPRIL MALEATE 2.5 MG TAB PO SCH (10:16)
--- NOTE | 2025-01-07 15:58 | DVHPN2 ---
Subjective Continues to be confused and agitated and sometimes Reviewed: Care Plan, H&P, Labs, Medications, Previous Orders, Radiology, Other (Consultation) Changes from previous H/P or p: Changes Objective Vitals Vital Signs Date Time Temp Pulse Resp B/P (MAP) Pulse Ox O2 Delivery O2 Flow Rate FiO2 01/07/25 12:00 98.0 90 18 131/82 (98) 96 98.0 01/07/25 07:40 Room Air* 0 21 Intake/Output Intake and Output 01/07/25 07:00 Intake Total 150 ml Balance 150 ml Intake IV Total 150 ml General Appearance: Alert, No acute distress, Other (With mittens; confused; oriented only to self sometimes) HEENT: Atraumatic Lungs: Clear to auscultation, Normal air movement Cardiovascular: Regular rate, Normal S1, Normal S2 Abdomen: Normal bowel sounds, Soft, Other (Reducible umbilical hernia) Neuro: Normal speech, Cranial nerves 3-12 NL, Other (Confused; oriented only to self sometimes) Psych/Mental Status: Other (Confused) Medications Current Medications Medications Dose Ordered Sig/Edward Route Start Time Stop Time Status Last Admin Dose Admin Ceftriaxone Sodium 50 ml @ 100 mls/hr DAILY@09 IV 01/06/25 09:00 01/07/25 09:34 100 MLS/HR Acetaminophen/ Hydrocodone Bitart 1 tab Q4HP PRN PO 01/05/25 21:45 Ondansetron HCl 4 mg Q4HP PRN IV 01/05/25 21:45 Docusate Sodium 100 mg BIDPRN PRN PO 01/05/25 21:45 Acetaminophen 650 mg Q6HP PRN PO 01/05/25 21:45 Nitroglycerin 0.4 mg Q5MINP PRN SL 01/05/25 22:00 Morphine Sulfate 2 mg Q30M PRN IV 01/05/25 22:00 Enalapril Maleate 5 mg DAILY PO 01/07/25 10:00 01/07/25 10:16 5 MG Pravastatin Sodium 40 mg HS PO 01/06/25 22:00 01/06/25 21:05 40 MG Sodium Chloride 1,000 ml @ 100 mls/hr Q10H IV 01/06/25 14:15 01/07/25 01:21 100 MLS/HR Quetiapine Fumarate 50 mg HS PO 01/06/25 22:00 01/06/25 21:06 50 MG Olanzapine 2.5 mg BID PO 01/06/25 22:00 01/07/25 10:16 2.5 MG Enoxaparin Sodium 30 mg DAILY SC 01/07/25 10:00 01/07/25 10:16 30 MG Pantoprazole Sodium 40 mg DAILY@0600 PO 01/07/25 06:00 01/07/25 05:28 40 MG Laboratory Results Laboratory Tests 01/07/25 05:15 Chemistry Test 01/07/25 05:15 Calcium Level 8.9 mg/dL (8.7-10.4) Urinalysis Test 01/05/25 15:55 01/06/25 17:39 Urine Hyaline Casts Few /lpf (0 - 2) Urine Color Light-yellow (Yellow) Urine Clarity Clear (Clear) Urine pH 6.5 (5.0-9.0) Urine Specific [place] 1.016 (1.001-1.035) Urine Protein Negative (Negative) Urine Ketones Trace (Negative) Urine Blood Negative /uL (Negative) Urine Nitrite Negative (Negative) Urine Bilirubin Negative (Negative) Urine Urobilinogen Normal mg/dL (Negative) Urine Leukocyte Esterase Negative /uL (Negative) Urine RBC 1 /hpf (0 - 4) Urine Microscopic WBC 5 /HPF (0-5) Urine Squamous Epithelial Cells None seen /hpf (<5) Urine Bacteria None seen /hpf (None Seen) Urine Glucose Normal mg/dL (Normal) Microbiology Microbiology Date/Time Source Procedure Growth Status 01/05/25 15:55 Voided Urine Urine Culture - Final Complete Labs and/or images reviewed: Labs reviewed by me, Image(s) reviewed by me Assessment/Plan Assessment/Plan An 84-year-old female patient; with multiple comorbidities; who presented to the emergency department with abdominal pain. Abdominal pain in the setting of complex periumbilical hernia; to rule out strangulation Acute toxic/metabolic encephalopathy in the setting of Alzheimer's dementia due to sepsis Sepsis due to suspected aspiration pneumonia suspected complicated UTI Alzheimer's dementia with behavioral changes Moderate to severe compression deformity of T12 Hypertensive heart disease without heart failure Suspected aspiration pneumonia Normocytic hypochromic anemia Complex periumbilical hernia Suspected complicated UTI Hyponatremia Dyslipidemia Obesity Continue IV antibiotic Reviewed lab work and available imaging studies Reviewed the available cultures Continue one-to-one sitter Surgery is following Continue IV fluid as needed Continue pain management as needed Continue antihypertensive medications and adjust according to blood pressure readings Diet management as per surgery Continue monitoring Late Entry. This medical document was created using an electronic medical record system with computerized dictation system. Although this document has been carefully reviewed, there might still be some phonetic and typographical errors. These areas are purely typographical due to imperfections of the software programs, and do not reflect any compromise in the patient's medical care. Plan discussed with: Son, Other (Nurse) Date of Service: Jan 07, 2025 Billing Provider: ALEJANDRA SINGLETON MD Common Visit Codes: [id number] INP/OBS CARE(HIGH) ALEJANDRA SINGLETON MD Jan 07, 2025 15:58
[2025-01-07] MEDS: HYDROcodone-ACET 5/325MG TAB PO PRN (19:52)
[2025-01-07] MEDS ORDERED: IPRATROPIUM BROM 0.5 MG/2.5ML INH SOL NEB PRN (20:15)
[2025-01-07] MEDS: IPRATROPIUM BROM 0.5 MG/2.5ML INH SOL NEB PRN (20:41)
[2025-01-07] MEDS: ALBUTEROL SULF 2.5 MG/0.5ML(0.5%) NEB SOLN NEB PRN (20:42)
[2025-01-08] VITALS (9 sets, daily range): BP systolic 96–138; BP diastolic 59–73; PULSE 82–121; RESP 18; TEMP 98.2–98.6; O2SAT 94–100
[2025-01-08] MEDS ORDERED: diphenhdrAMINE HCL 50 MG/1 ML VL IM ONE (09:45)
--- NOTE | 2025-01-08 10:14 | DVHPN2 ---
Progress Note Date Seen: Jan 08, 2025 Medical Necessity Reason Pt with a Central, PICC or Fol: Yes The following are medically ne: Waters Catheter Reason for waters catheter: Bladder Retention/Obstruc Objective vital signs Vital Sign Date Time Temp Pulse Resp B/P (MAP) Pulse Ox O2 Delivery O2 Flow Rate FiO2 01/08/25 09:00 121 18 110/73 (85) 95 01/08/25 07:02 Room Air 01/08/25 07:02 0 21 01/07/25 21:00 97.4 97.4 Total Intake and Output 01/07/25 01/07/25 01/08/25 15:00 23:00 07:00 Intake Total 50 ml 1400 ml Balance 50 ml 1400 ml medications Current Medications Medications Dose Ordered Sig/Edward Route Start Time Stop Time Status Last Admin Dose Admin Ceftriaxone Sodium 50 ml @ 100 mls/hr DAILY@09 IV 01/06/25 09:00 01/08/25 08:12 100 MLS/HR Acetaminophen/ Hydrocodone Bitart 1 tab Q4HP PRN PO 01/05/25 21:45 01/08/25 08:12 1 TAB Ondansetron HCl 4 mg Q4HP PRN IV 01/05/25 21:45 Docusate Sodium 100 mg BIDPRN PRN PO 01/05/25 21:45 Acetaminophen 650 mg Q6HP PRN PO 01/05/25 21:45 Nitroglycerin 0.4 mg Q5MINP PRN SL 01/05/25 22:00 Morphine Sulfate 2 mg Q30M PRN IV 01/05/25 22:00 Enalapril Maleate 5 mg DAILY PO 01/07/25 10:00 01/08/25 08:41 5 MG Pravastatin Sodium 40 mg HS PO 01/06/25 22:00 01/07/25 19:52 40 MG Sodium Chloride 1,000 ml @ 100 mls/hr Q10H IV 01/06/25 14:15 01/08/25 06:37 100 MLS/HR Quetiapine Fumarate 50 mg HS PO 01/06/25 22:00 01/07/25 19:52 50 MG Olanzapine 2.5 mg BID PO 01/06/25 22:00 01/08/25 08:13 2.5 MG Enoxaparin Sodium 30 mg DAILY SC 01/07/25 10:00 01/07/25 10:16 30 MG Pantoprazole Sodium 40 mg DAILY@0600 PO 01/07/25 06:00 01/08/25 05:56 40 MG Albuterol 2.5 mg Q6HPRN PRN NEB 01/07/25 20:15 01/07/25 20:42 2.5 MG Ipratropium [place] 0.5 mg Q6HPRN PRN NEB 01/07/25 20:30 01/07/25 20:41 0.5 MG Diphenhydramine HCl 25 mg Q4HPRN PRN PO 01/08/25 09:45 laboratory and microbiology Laboratory Tests 01/07/25 05:15 Test 01/07/25 05:15 Range/Units Serum Glucose 125 H 74-106 mg/dL Microbiology Date/Time Source Procedure Growth Status 01/05/25 15:55 Voided Urine Urine Culture - Final Complete Problem List/Assessment/Plan Problem List/Assessment/Plan AFEBRILE VSS ABD SOFT RECURRENT VENTRAL HERNIA REDUCED MANUALLY NO BM R/O SBO GASTROGRAFIN STUDY CONSIDER EMERGENT SURGERY BASED ON ONGOING EVAL Plan discussed with: Other ANTONIO MAYO MD Jan 08, 2025 10:14
[2025-01-08] MEDS: diphenhdrAMINE HCL 50 MG/1 ML VL IV ONE (11:20)
[2025-01-08 12:48] LABS: Anion Gap 9 (5-15); Carbon Dioxide 23 mmol/L (20-31); Chloride 103 mmol/L (98-107); Potassium 3.7 mmol/L (3.5-5.1)
[2025-01-08 12:50] LABS: Calcium 7.7 mg/dL (8.7-10.4); Sodium 135 mmol/L (136-145)
[2025-01-08 12:54] LABS: BUN/Creatinine Ratio 22.7 (10.0-20.0); Blood Urea Nitrogen 10 mg/dL (9-23); Glucose 98 mg/dL (74-106)
[2025-01-08] MEDS: CALCIUM GLUC 1,000mg/50ml-NS 50 ML IV SCH (13:21)
--- NOTE | 2025-01-08 14:56 | DVHPN2 ---
Subjective Returning abdominal pain Reviewed: Care Plan, H&P, Labs, Medications, Previous Orders, Radiology, Other (Consultation) Changes from previous H/P or p: Changes Objective Vitals Vital Signs Date Time Temp Pulse Resp B/P (MAP) Pulse Ox O2 Delivery O2 Flow Rate FiO2 01/08/25 09:00 121 18 110/73 (85) 95 01/08/25 07:02 Room Air 01/08/25 07:02 0 21 01/07/25 21:00 97.4 97.4 Intake/Output Intake and Output 01/08/25 07:00 Intake Total 1450 ml Balance 1450 ml Intake Oral 200 ml IV Total 1250 ml # Voids 1 General Appearance: Alert, mild distress, Other (With mittens; confused; only oriented to person sometimes) HEENT: Atraumatic Lungs: Clear to auscultation, Normal air movement Cardiovascular: Regular rate, Normal S1, Normal S2 Abdomen: Normal bowel sounds, Soft, Other (Tender periumbilical hernia; unable to reduce manually) Neuro: Normal speech, Cranial nerves 3-12 NL, Other (Confused; only oriented to person sometimes) Psych/Mental Status: Other (Confused) Medications Current Medications Medications Dose Ordered Sig/Edward Route Start Time Stop Time Status Last Admin Dose Admin Ceftriaxone Sodium 50 ml @ 100 mls/hr DAILY@09 IV 01/06/25 09:00 01/08/25 08:12 100 MLS/HR Acetaminophen/ Hydrocodone Bitart 1 tab Q4HP PRN PO 01/05/25 21:45 01/08/25 08:12 1 TAB Ondansetron HCl 4 mg Q4HP PRN IV 01/05/25 21:45 Docusate Sodium 100 mg BIDPRN PRN PO 01/05/25 21:45 Acetaminophen 650 mg Q6HP PRN PO 01/05/25 21:45 Nitroglycerin 0.4 mg Q5MINP PRN SL 01/05/25 22:00 Morphine Sulfate 2 mg Q30M PRN IV 01/05/25 22:00 Enalapril Maleate 5 mg DAILY PO 01/07/25 10:00 01/08/25 08:41 5 MG Pravastatin Sodium 40 mg HS PO 01/06/25 22:00 01/07/25 19:52 40 MG Sodium Chloride 1,000 ml @ 100 mls/hr Q10H IV 01/06/25 14:15 01/08/25 06:37 100 MLS/HR Quetiapine Fumarate 50 mg HS PO 01/06/25 22:00 01/07/25 19:52 50 MG Olanzapine 2.5 mg BID PO 01/06/25 22:00 01/08/25 08:13 2.5 MG Enoxaparin Sodium 30 mg DAILY SC 01/07/25 10:00 01/08/25 10:24 30 MG Pantoprazole Sodium 40 mg DAILY@0600 PO 01/07/25 06:00 01/08/25 05:56 40 MG Albuterol 2.5 mg Q6HPRN PRN NEB 01/07/25 20:15 01/07/25 20:42 2.5 MG Ipratropium [place] 0.5 mg Q6HPRN PRN NEB 01/07/25 20:30 01/07/25 20:41 0.5 MG Diphenhydramine HCl 25 mg Q4HPRN PRN PO 01/08/25 09:45 01/08/25 13:27 25 MG Laboratory Results Laboratory Tests 01/08/25 12:22 Chemistry Test 01/08/25 12:22 Calcium Level 7.7 mg/dL (8.7-10.4) L Urinalysis Test 01/05/25 15:55 01/06/25 17:39 Urine Hyaline Casts Few /lpf (0 - 2) Urine Color Light-yellow (Yellow) Urine Clarity Clear (Clear) Urine pH 6.5 (5.0-9.0) Urine Specific [place] 1.016 (1.001-1.035) Urine Protein Negative (Negative) Urine Ketones Trace (Negative) Urine Blood Negative /uL (Negative) Urine Nitrite Negative (Negative) Urine Bilirubin Negative (Negative) Urine Urobilinogen Normal mg/dL (Negative) Urine Leukocyte Esterase Negative /uL (Negative) Urine RBC 1 /hpf (0 - 4) Urine Microscopic WBC 5 /HPF (0-5) Urine Squamous Epithelial Cells None seen /hpf (<5) Urine Bacteria None seen /hpf (None Seen) Urine Glucose Normal mg/dL (Normal) Microbiology Microbiology Date/Time Source Procedure Growth Status 01/05/25 15:55 Voided Urine Urine Culture - Final Complete Labs and/or images reviewed: Labs reviewed by me, Image(s) reviewed by me Assessment/Plan Assessment/Plan An 84-year-old female patient; with multiple comorbidities; who presented to the emergency department with abdominal pain. Abdominal pain in the setting of complex periumbilical hernia; to rule out strangulation Acute toxic/metabolic encephalopathy in the setting of Alzheimer's dementia due to sepsis Sepsis due to suspected aspiration pneumonia suspected complicated UTI Alzheimer's dementia with behavioral changes Moderate to severe compression deformity of T12 Hypertensive heart disease without heart failure Suspected aspiration pneumonia Normocytic hypochromic anemia; inflammatory Complex periumbilical hernia Suspected complicated UTI Hyponatremia Dyslipidemia Obesity Continue IV antibiotic Reviewed lab work and available imaging studies Small-bowel series ordered by surgery; placed order to place NG if needed as the patient is not cooperative Reviewed the available cultures Continue one-to-one sitter Surgery is following Continue IV fluid as needed Continue pain management as needed No symptoms/signs of active bleeding Continue antihypertensive medications and adjust according to blood pressure readings Diet management as per surgery Continue monitoring Late Entry. This medical document was created using an electronic medical record system with computerized dictation system. Although this document has been carefully reviewed, there might still be some phonetic and typographical errors. These areas are purely typographical due to imperfections of the software programs, and do not reflect any compromise in the patient's medical care. Plan discussed with: Son, Other (Nurse) My Orders Orders - ALEJANDRA SINGLETON MD Procedure Category Date Status Time Diphenhdramine PHA 01/08/25 In Process Capsule (Benadryl 09:45 Transfer Orders XFER 01/08/25 Transmitted 10:29 Date of Service: Jan 08, 2025 Billing Provider: ALEJANDRA SINGLETON MD Common Visit Codes: [id number] INP/OBS CARE(HIGH) ALEJANDRA SINGLETON MD Jan 08, 2025 14:56
[2025-01-09] VITALS (7 sets, daily range): BP systolic 96–127; BP diastolic 57–85; PULSE 56–103; RESP 18–20; TEMP 97.4–98.8; O2SAT 94–97
--- NOTE | 2025-01-09 12:50 | DVH ---
EXAM: XY CHEST XRAY 1 VIEW Indication: pain ; PNA Technique: Single frontal view of the chest was obtained Comparison: None FINDINGS: Lines and Tubes: None Lungs: No focal consolidation. Pleura: No effusion. No pneumothorax. Cardiomediastinal contours: Unremarkable. Atherosclerotic vascular calcifications of the thoracic ao rta are noted. Bones: No acute osseous abnormality. IMPRESSION: No acute cardiopulmonary disease.
--- NOTE | 2025-01-09 13:36 | DVHPN2 ---
Reviewed: Care Plan, H&P, Labs, Medications, Previous Orders, Radiology, Other (Consultation) Changes from previous H/P or p: No Changes Objective Vitals Vital Signs Date Time Temp Pulse Resp B/P (MAP) Pulse Ox O2 Delivery O2 Flow Rate FiO2 01/09/25 10:54 97 Room Air* 0 21 01/09/25 09:21 127/85 01/09/25 09:00 97.7 56 19 97.7 Intake/Output Intake and Output 01/09/25 07:00 Intake Total 1670 ml Balance 1670 ml Intake Oral 920 ml IV Total 750 ml # Voids 5 General Appearance: Alert, mild distress, Other (With mittens; confused; only oriented to person sometimes) HEENT: Atraumatic Lungs: Clear to auscultation, Normal air movement Cardiovascular: Regular rate, Normal S1, Normal S2 Abdomen: Normal bowel sounds, Soft, Other (Tender periumbilical hernia; unable to reduce manually) Neuro: Normal speech, Cranial nerves 3-12 NL, Other (Confused; only oriented to person sometimes) Psych/Mental Status: Other (Confused) Medications Current Medications Medications Dose Ordered Sig/Edward Route Start Time Stop Time Status Last Admin Dose Admin Ceftriaxone Sodium 50 ml @ 100 mls/hr DAILY@09 IV 01/06/25 09:00 01/09/25 09:20 100 MLS/HR Acetaminophen/ Hydrocodone Bitart 1 tab Q4HP PRN PO 01/05/25 21:45 01/09/25 09:42 1 TAB Ondansetron HCl 4 mg Q4HP PRN IV 01/05/25 21:45 Docusate Sodium 100 mg BIDPRN PRN PO 01/05/25 21:45 Acetaminophen 650 mg Q6HP PRN PO 01/05/25 21:45 Nitroglycerin 0.4 mg Q5MINP PRN SL 01/05/25 22:00 Morphine Sulfate 2 mg Q30M PRN IV 01/05/25 22:00 Enalapril Maleate 5 mg DAILY PO 01/07/25 10:00 01/09/25 09:21 5 MG Pravastatin Sodium 40 mg HS PO 01/06/25 22:00 01/08/25 21:24 40 MG Sodium Chloride 1,000 ml @ 100 mls/hr Q10H IV 01/06/25 14:15 01/09/25 12:15 100 MLS/HR Quetiapine Fumarate 50 mg HS PO 01/06/25 22:00 01/08/25 21:24 50 MG Olanzapine 2.5 mg BID PO 01/06/25 22:00 01/09/25 09:22 2.5 MG Enoxaparin Sodium 30 mg DAILY SC 01/07/25 10:00 01/09/25 09:21 30 MG Pantoprazole Sodium 40 mg DAILY@0600 PO 01/07/25 06:00 01/09/25 06:03 40 MG Albuterol 2.5 mg Q6HPRN PRN NEB 01/07/25 20:15 01/08/25 18:45 2.5 MG Ipratropium [place] 0.5 mg Q6HPRN PRN NEB 01/07/25 20:30 01/08/25 18:45 0.5 MG Diphenhydramine HCl 25 mg Q4HPRN PRN PO 01/08/25 09:45 01/09/25 07:45 25 MG Laboratory Results Laboratory Tests 01/07/25 05:15 01/08/25 12:22 Urinalysis Test 01/05/25 15:55 01/06/25 17:39 Urine Hyaline Casts Few /lpf (0 - 2) Urine Color Light-yellow (Yellow) Urine Clarity Clear (Clear) Urine pH 6.5 (5.0-9.0) Urine Specific [place] 1.016 (1.001-1.035) Urine Protein Negative (Negative) Urine Ketones Trace (Negative) Urine Blood Negative /uL (Negative) Urine Nitrite Negative (Negative) Urine Bilirubin Negative (Negative) Urine Urobilinogen Normal mg/dL (Negative) Urine Leukocyte Esterase Negative /uL (Negative) Urine RBC 1 /hpf (0 - 4) Urine Microscopic WBC 5 /HPF (0-5) Urine Squamous Epithelial Cells None seen /hpf (<5) Urine Bacteria None seen /hpf (None Seen) Urine Glucose Normal mg/dL (Normal) Microbiology Microbiology Date/Time Source Procedure Growth Status 01/05/25 15:55 Voided Urine Urine Culture - Final Complete Labs and/or images reviewed: Labs reviewed by me, Image(s) reviewed by me Assessment/Plan Assessment/Plan Covering for Dr.Al Sellers Abdominal pain in the setting of complex periumbilical hernia; to rule out strangulation, surgical consult by Dr. Tabitha Fields appreciated, Gastrografin study pending Acute toxic/metabolic encephalopathy in the setting of Alzheimer's dementia due to sepsis Sepsis due to suspected aspiration pneumonia suspected complicated UTI, continue Rocephin Alzheimer's dementia with behavioral changes Moderate to severe compression deformity of T12 Hypertensive heart disease without heart failure Suspected aspiration pneumonia Normocytic hypochromic anemia; inflammatory Complex periumbilical hernia Suspected complicated UTI Hyponatremia Dyslipidemia Obesity Time spent 70 minutes Advanced care planning time 20 minutes Patient is DNR Plan discussed with: Patient Date of Service: Jan 09, 2025 Billing Provider: WESLEY YADAV MD Common Visit Codes: [id number] CARE 30-74 MIN WESLEY YADAV MD Jan 09, 2025 13:36
--- NOTE | 2025-01-09 17:57 | DVHPN2 ---
Progress Note Date Seen: Jan 09, 2025 Medical Necessity Reason Pt with a Central, PICC or Fol: Yes The following are medically ne: Waters Catheter Reason for waters catheter: Bladder Retention/Obstruc Objective vital signs Vital Sign Date Time Temp Pulse Resp B/P (MAP) Pulse Ox O2 Delivery O2 Flow Rate FiO2 01/09/25 17:00 97.4 103 20 96/57 (70) 95 97.4 01/09/25 10:54 Room Air* 0 21 Total Intake and Output 01/08/25 01/08/25 01/09/25 15:00 23:00 07:00 Intake Total 100 ml 1070 ml 500 ml Balance 100 ml 1070 ml 500 ml medications Current Medications Medications Dose Ordered Sig/Edward Route Start Time Stop Time Status Last Admin Dose Admin Ceftriaxone Sodium 50 ml @ 100 mls/hr DAILY@09 IV 01/06/25 09:00 01/09/25 09:20 100 MLS/HR Acetaminophen/ Hydrocodone Bitart 1 tab Q4HP PRN PO 01/05/25 21:45 01/09/25 15:42 1 TAB Ondansetron HCl 4 mg Q4HP PRN IV 01/05/25 21:45 Docusate Sodium 100 mg BIDPRN PRN PO 01/05/25 21:45 Acetaminophen 650 mg Q6HP PRN PO 01/05/25 21:45 Nitroglycerin 0.4 mg Q5MINP PRN SL 01/05/25 22:00 Morphine Sulfate 2 mg Q30M PRN IV 01/05/25 22:00 Enalapril Maleate 5 mg DAILY PO 01/07/25 10:00 01/09/25 09:21 5 MG Pravastatin Sodium 40 mg HS PO 01/06/25 22:00 01/08/25 21:24 40 MG Sodium Chloride 1,000 ml @ 100 mls/hr Q10H IV 01/06/25 14:15 01/09/25 12:15 100 MLS/HR Quetiapine Fumarate 50 mg HS PO 01/06/25 22:00 01/08/25 21:24 50 MG Olanzapine 2.5 mg BID PO 01/06/25 22:00 01/09/25 09:22 2.5 MG Enoxaparin Sodium 30 mg DAILY SC 01/07/25 10:00 01/09/25 09:21 30 MG Pantoprazole Sodium 40 mg DAILY@0600 PO 01/07/25 06:00 01/09/25 06:03 40 MG Albuterol 2.5 mg Q6HPRN PRN NEB 01/07/25 20:15 01/08/25 18:45 2.5 MG Ipratropium [place] 0.5 mg Q6HPRN PRN NEB 01/07/25 20:30 01/08/25 18:45 0.5 MG Diphenhydramine HCl 25 mg Q4HPRN PRN PO 01/08/25 09:45 01/09/25 07:45 25 MG laboratory and microbiology Laboratory Tests 01/08/25 12:22 01/07/25 05:15 Test 01/08/25 12:22 Range/Units Serum Glucose 98 74-106 mg/dL Microbiology Date/Time Source Procedure Growth Status 01/05/25 15:55 Voided Urine Urine Culture - Final Complete Problem List/Assessment/Plan Problem List/Assessment/Plan AFEBRILE VSS ABD SOFT RECURRENT VENTRAL HERNIA REDUCED MANUALLY BM + R/O SBO GASTROGRAFIN STUDY DONE CONSIDER EMERGENT SURGERY BASED ON ONGOING EVAL Plan discussed with: Patient Dietary Evaluation Review Comments: 1) Initiate Glucerna bid 2) Encourage optimal PO intake 3) Follow-up with cardiology, pulmonology and neurology 4) Continue to monitor I&O, labs, and skin integrity Expected Outcomes/Goals: 1) appetite and labs to improve 2) f/u in 3-5 days ANTONIO MAYO MD Jan 09, 2025 17:57
--- NOTE | 2025-01-09 18:07 | DVH ---
Procedure: XY SMALL BOWEL SERIES-W GASTROGRA Reason for study/Clinical History: hernia obstruction Comparison Study: None Technique: Single contrast small bowel series performed. FINDINGS/IMPRESSION: Initial plastic finisher view of the abdomen and pelvis appears demonstrates no acute process. Contrast is identified within the colon by 3 hours. This represents a Mild delay in small bowel rose sit time. No evidence of obstruction identified.
[2025-01-10] VITALS (10 sets, daily range): BP systolic 100–139; BP diastolic 68–111; PULSE 67–102; RESP 18–20; TEMP 97.4–98; O2SAT 92–98
--- NOTE | 2025-01-10 11:20 | DVHPN2 ---
Reviewed: Care Plan, H&P, Labs, Medications, Previous Orders, Radiology, Other (Consultation) Changes from previous H/P or p: No Changes Objective Vitals Vital Signs Date Time Temp Pulse Resp B/P (MAP) Pulse Ox O2 Delivery O2 Flow Rate FiO2 01/10/25 10:10 98 Room Air* 0 21 01/10/25 08:52 132/111 01/10/25 03:56 98.0 96 19 98.0 Intake/Output Intake and Output 01/10/25 07:00 Intake Total 400 ml Balance 400 ml Intake Oral 400 ml # Voids 4 # Bowel Movements 7 General Appearance: Alert, mild distress, Other (With mittens; confused; only oriented to person sometimes) HEENT: Atraumatic Lungs: Clear to auscultation, Normal air movement Cardiovascular: Regular rate, Normal S1, Normal S2 Abdomen: Normal bowel sounds, Soft, Other (Tender periumbilical hernia; unable to reduce manually) Neuro: Normal speech, Cranial nerves 3-12 NL, Other (Confused; only oriented to person sometimes) Psych/Mental Status: Other (Confused) Medications Current Medications Medications Dose Ordered Sig/Edward Route Start Time Stop Time Status Last Admin Dose Admin Ceftriaxone Sodium 50 ml @ 100 mls/hr DAILY@09 IV 01/06/25 09:00 01/10/25 08:52 100 MLS/HR Acetaminophen/ Hydrocodone Bitart 1 tab Q4HP PRN PO 01/05/25 21:45 01/09/25 23:23 1 TAB Ondansetron HCl 4 mg Q4HP PRN IV 01/05/25 21:45 Docusate Sodium 100 mg BIDPRN PRN PO 01/05/25 21:45 Acetaminophen 650 mg Q6HP PRN PO 01/05/25 21:45 Nitroglycerin 0.4 mg Q5MINP PRN SL 01/05/25 22:00 Morphine Sulfate 2 mg Q30M PRN IV 01/05/25 22:00 Enalapril Maleate 5 mg DAILY PO 01/07/25 10:00 01/10/25 08:52 5 MG Pravastatin Sodium 40 mg HS PO 01/06/25 22:00 01/09/25 21:05 40 MG Sodium Chloride 1,000 ml @ 100 mls/hr Q10H IV 01/06/25 14:15 01/10/25 08:15 100 MLS/HR Quetiapine Fumarate 50 mg HS PO 01/06/25 22:00 01/09/25 21:05 50 MG Olanzapine 2.5 mg BID PO 01/06/25 22:00 01/10/25 08:52 2.5 MG Enoxaparin Sodium 30 mg DAILY SC 01/07/25 10:00 01/10/25 08:59 30 MG Pantoprazole Sodium 40 mg DAILY@0600 PO 01/07/25 06:00 01/10/25 05:46 40 MG Albuterol 2.5 mg Q6HPRN PRN NEB 01/07/25 20:15 01/08/25 18:45 2.5 MG Ipratropium [place] 0.5 mg Q6HPRN PRN NEB 01/07/25 20:30 01/08/25 18:45 0.5 MG Diphenhydramine HCl 25 mg Q4HPRN PRN PO 01/08/25 09:45 01/10/25 09:08 25 MG Laboratory Results Laboratory Tests 01/07/25 05:15 01/08/25 12:22 Urinalysis Test 01/05/25 15:55 01/06/25 17:39 Urine Hyaline Casts Few /lpf (0 - 2) Urine Color Light-yellow (Yellow) Urine Clarity Clear (Clear) Urine pH 6.5 (5.0-9.0) Urine Specific [place] 1.016 (1.001-1.035) Urine Protein Negative (Negative) Urine Ketones Trace (Negative) Urine Blood Negative /uL (Negative) Urine Nitrite Negative (Negative) Urine Bilirubin Negative (Negative) Urine Urobilinogen Normal mg/dL (Negative) Urine Leukocyte Esterase Negative /uL (Negative) Urine RBC 1 /hpf (0 - 4) Urine Microscopic WBC 5 /HPF (0-5) Urine Squamous Epithelial Cells None seen /hpf (<5) Urine Bacteria None seen /hpf (None Seen) Urine Glucose Normal mg/dL (Normal) Microbiology Microbiology Date/Time Source Procedure Growth Status 01/05/25 15:55 Voided Urine Urine Culture - Final Complete Labs and/or images reviewed: Labs reviewed by me, Image(s) reviewed by me Assessment/Plan Assessment/Plan Covering for Dr.Al Sellers Abdominal pain in the setting of complex periumbilical hernia; to rule out strangulation, surgical consult by Dr. 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
[2025-01-10] MEDS: hydrOXYzine 25 MG TAB or CAP PO PRN (11:38)
--- NOTE | 2025-01-10 16:32 | DVHPN2 ---
Progress Note Date Seen: Jan 10, 2025 Medical Necessity Reason Pt with a Central, PICC or Fol: Yes The following are medically ne: Waters Catheter Reason for waters catheter: Bladder Retention/Obstruc Objective vital signs Vital Sign Date Time Temp Pulse Resp B/P (MAP) Pulse Ox O2 Delivery O2 Flow Rate FiO2 01/10/25 13:00 97.9 80 19 137/87 (104) 92 97.9 01/10/25 11:22 Room Air* 0 21 Total Intake and Output 01/09/25 01/09/25 01/10/25 15:00 23:00 07:00 Intake Total 0 ml 400 ml Balance 0 ml 400 ml medications Current Medications Medications Dose Ordered Sig/Edward Route Start Time Stop Time Status Last Admin Dose Admin Ceftriaxone Sodium 50 ml @ 100 mls/hr DAILY@09 IV 01/06/25 09:00 01/10/25 08:52 100 MLS/HR Acetaminophen/ Hydrocodone Bitart 1 tab Q4HP PRN PO 01/05/25 21:45 01/10/25 13:34 1 TAB Ondansetron HCl 4 mg Q4HP PRN IV 01/05/25 21:45 Docusate Sodium 100 mg BIDPRN PRN PO 01/05/25 21:45 Acetaminophen 650 mg Q6HP PRN PO 01/05/25 21:45 Nitroglycerin 0.4 mg Q5MINP PRN SL 01/05/25 22:00 Morphine Sulfate 2 mg Q30M PRN IV 01/05/25 22:00 Enalapril Maleate 5 mg DAILY PO 01/07/25 10:00 01/10/25 08:52 5 MG Pravastatin Sodium 40 mg HS PO 01/06/25 22:00 01/09/25 21:05 40 MG Sodium Chloride 1,000 ml @ 100 mls/hr Q10H IV 01/06/25 14:15 01/10/25 08:15 100 MLS/HR Quetiapine Fumarate 50 mg HS PO 01/06/25 22:00 01/09/25 21:05 50 MG Olanzapine 2.5 mg BID PO 01/06/25 22:00 01/10/25 08:52 2.5 MG Enoxaparin Sodium 30 mg DAILY SC 01/07/25 10:00 01/10/25 08:59 30 MG Pantoprazole Sodium 40 mg DAILY@0600 PO 01/07/25 06:00 01/10/25 05:46 40 MG Albuterol 2.5 mg Q6HPRN PRN NEB 01/07/25 20:15 01/08/25 18:45 2.5 MG Ipratropium [place] 0.5 mg Q6HPRN PRN NEB 01/07/25 20:30 01/08/25 18:45 0.5 MG Diphenhydramine HCl 25 mg Q4HPRN PRN PO 01/08/25 09:45 01/10/25 09:08 25 MG Hydroxyzine Pamoate 25 mg Q6HP PRN PO 01/10/25 11:30 01/10/25 11:38 25 MG laboratory and microbiology Laboratory Tests 01/08/25 12:22 01/07/25 05:15 Test 01/08/25 12:22 Range/Units Serum Glucose 98 74-106 mg/dL Microbiology Date/Time Source Procedure Growth Status 01/05/25 15:55 Voided Urine Urine Culture - Final Complete Problem List/Assessment/Plan Problem List/Assessment/Plan AFEBRILE VSS ABD SOFT RECURRENT VENTRAL HERNIA REDUCED MANUALLY BM + SBO RESOLVED CONSIDER EMERGENT SURGERY BASED ON ONGOING EVAL CARDIAC CLEARANCE IF SURGERY CONSIDERED Plan discussed with: Other Dietary Evaluation Review Comments: 1) Initiate Glucerna bid 2) Encourage optimal PO intake 3) Follow-up with cardiology, pulmonology and neurology 4) Continue to monitor I&O, labs, and skin integrity Expected Outcomes/Goals: 1) appetite and labs to improve 2) f/u in 3-5 days ANTONIO MAYO MD Jan 10, 2025 16:32
[2025-01-11] VITALS (12 sets, daily range): BP systolic 107–148; BP diastolic 73–91; PULSE 80–97; RESP 16–21; TEMP 97.5–97.9; O2SAT 94–98
[2025-01-11] MEDS: ACETAMINOPHEN 325 MG TAB PO PRN (04:03)
[2025-01-11] MEDS: GASTROGRAFIN 120 ML SOL ONE ×2 (11:38→11:39)
--- NOTE | 2025-01-11 11:49 | DVHPN2 ---
Reviewed: Care Plan, H&P, Labs, Medications, Previous Orders, Radiology, Other (Consultation) Changes from previous H/P or p: No Changes Objective Vitals Vital Signs Date Time Temp Pulse Resp B/P (MAP) Pulse Ox O2 Delivery O2 Flow Rate FiO2 01/11/25 10:27 133/77 01/11/25 07:31 95 Room Air 0.0 01/11/25 07:31 21 01/11/25 05:00 97.9 92 20 97.9 Intake/Output Intake and Output 01/11/25 07:00 Intake Total 1150 ml Balance 1150 ml Intake Oral 1150 ml # Voids 7 # Bowel Movements 5 General Appearance: Alert, mild distress, Other (With mittens; confused; only oriented to person sometimes) HEENT: Atraumatic Lungs: Clear to auscultation, Normal air movement Cardiovascular: Regular rate, Normal S1, Normal S2 Abdomen: Normal bowel sounds, Soft, Other (Tender periumbilical hernia; unable to reduce manually) Neuro: Normal speech, Cranial nerves 3-12 NL, Other (Confused; only oriented to person sometimes) Psych/Mental Status: Other (Confused) Medications Current Medications Medications Dose Ordered Sig/Edward Route Start Time Stop Time Status Last Admin Dose Admin Ceftriaxone Sodium 50 ml @ 100 mls/hr DAILY@09 IV 01/06/25 09:00 01/10/25 08:52 100 MLS/HR Acetaminophen/ Hydrocodone Bitart 1 tab Q4HP PRN PO 01/05/25 21:45 01/10/25 23:26 1 TAB Ondansetron HCl 4 mg Q4HP PRN IV 01/05/25 21:45 Docusate Sodium 100 mg BIDPRN PRN PO 01/05/25 21:45 Acetaminophen 650 mg Q6HP PRN PO 01/05/25 21:45 01/11/25 10:17 650 MG Nitroglycerin 0.4 mg Q5MINP PRN SL 01/05/25 22:00 Morphine Sulfate 2 mg Q30M PRN IV 01/05/25 22:00 Enalapril Maleate 5 mg DAILY PO 01/07/25 10:00 01/11/25 10:27 5 MG Pravastatin Sodium 40 mg HS PO 01/06/25 22:00 01/10/25 21:04 40 MG Sodium Chloride 1,000 ml @ 100 mls/hr Q10H IV 01/06/25 14:15 01/10/25 18:42 100 MLS/HR Quetiapine Fumarate 50 mg HS PO 01/06/25 22:00 01/10/25 21:04 50 MG Olanzapine 2.5 mg BID PO 01/06/25 22:00 01/11/25 10:17 2.5 MG Enoxaparin Sodium 30 mg DAILY SC 01/07/25 10:00 01/11/25 10:17 30 MG Pantoprazole Sodium 40 mg DAILY@0600 PO 01/07/25 06:00 01/11/25 05:47 40 MG Albuterol 2.5 mg Q6HPRN PRN NEB 01/07/25 20:15 01/08/25 18:45 2.5 MG Ipratropium [place] 0.5 mg Q6HPRN PRN NEB 01/07/25 20:30 01/08/25 18:45 0.5 MG Diphenhydramine HCl 25 mg Q4HPRN PRN PO 01/08/25 09:45 01/11/25 08:28 25 MG Hydroxyzine Pamoate 25 mg Q6HP PRN PO 01/10/25 11:30 01/10/25 21:05 25 MG Laboratory Results Laboratory Tests 01/07/25 05:15 01/08/25 12:22 Urinalysis Test 01/05/25 15:55 01/06/25 17:39 Urine Hyaline Casts Few /lpf (0 - 2) Urine Color Light-yellow (Yellow) Urine Clarity Clear (Clear) Urine pH 6.5 (5.0-9.0) Urine Specific [place] 1.016 (1.001-1.035) Urine Protein Negative (Negative) Urine Ketones Trace (Negative) Urine Blood Negative /uL (Negative) Urine Nitrite Negative (Negative) Urine Bilirubin Negative (Negative) Urine Urobilinogen Normal mg/dL (Negative) Urine Leukocyte Esterase Negative /uL (Negative) Urine RBC 1 /hpf (0 - 4) Urine Microscopic WBC 5 /HPF (0-5) Urine Squamous Epithelial Cells None seen /hpf (<5) Urine Bacteria None seen /hpf (None Seen) Urine Glucose Normal mg/dL (Normal) Microbiology Microbiology Date/Time Source Procedure Growth Status 01/05/25 15:55 Voided Urine Urine Culture - Final Complete Labs and/or images reviewed: Labs reviewed by me, Image(s) reviewed by me Assessment/Plan Assessment/Plan Covering for Dr.Al Sellers Abdominal pain in the setting of complex periumbilical hernia; to rule out strangulation, surgical consult by Dr. Tabitha Fields appreciated, Gastrografin study shows improving SBO Acute toxic/metabolic encephalopathy in the setting of Alzheimer's dementia due to sepsis Sepsis due to suspected aspiration pneumonia suspected complicated UTI, continue Rocephin Alzheimer's dementia with behavioral changes Moderate to severe compression deformity of T12 Hypertensive heart disease without heart failure Normocytic hypochromic anemia Hyponatremia Dyslipidemia Obesity Generalized itching: Atarax Time spent 70 minutes Advanced care planning time 20 minutes Patient is DNR Came from [facility] Plan discussed with: Patient Date of Service: Jan 11, 2025 Billing Provider: WESLEY YADAV MD Common Visit Codes: [id number] INP/OBS CARE(HIGH) WESLEY YADAV MD Jan 11, 2025 11:49
[2025-01-11] MEDS: LORazepam 0.5 MG TAB PO PRN (16:09)
[2025-01-12] VITALS (15 sets, daily range): BP systolic 100–148; BP diastolic 62–89; PULSE 56–100; RESP 11–18; TEMP 97.4–98.9; O2SAT 94–100
--- NOTE | 2025-01-12 10:42 | DVHPN2 ---
Reviewed: Care Plan, H&P, Labs, Medications, Previous Orders, Radiology, Other (Consultation) Changes from previous H/P or p: No Changes Objective Vitals Vital Signs Date Time Temp Pulse Resp B/P (MAP) Pulse Ox O2 Delivery O2 Flow Rate FiO2 01/12/25 09:49 149/89 01/12/25 08:30 97 14 95 01/12/25 06:01 Room Air* 0 21 01/12/25 05:00 98.9 98.9 Intake/Output Intake and Output 01/12/25 07:00 Intake Total 1225 ml Output Total 4 ml Balance 1221 ml Intake Oral 1000 ml IV Total 225 ml Output Urine Total 4 ml # Voids 4 # Bowel Movements 1 General Appearance: Alert, mild distress, Other (With mittens; confused; only oriented to person sometimes) HEENT: Atraumatic Lungs: Clear to auscultation, Normal air movement Cardiovascular: Regular rate, Normal S1, Normal S2 Abdomen: Normal bowel sounds, Soft, Other (Tender periumbilical hernia; unable to reduce manually) Neuro: Normal speech, Cranial nerves 3-12 NL, Other (Confused; only oriented to person sometimes) Psych/Mental Status: Other (Confused) Medications Current Medications Medications Dose Ordered Sig/Edward Route Start Time Stop Time Status Last Admin Dose Admin Ceftriaxone Sodium 50 ml @ 100 mls/hr DAILY@09 IV 01/06/25 09:00 01/12/25 08:49 100 MLS/HR Acetaminophen/ Hydrocodone Bitart 1 tab Q4HP PRN PO 01/05/25 21:45 01/12/25 08:50 1 TAB Ondansetron HCl 4 mg Q4HP PRN IV 01/05/25 21:45 Docusate Sodium 100 mg BIDPRN PRN PO 01/05/25 21:45 Acetaminophen 650 mg Q6HP PRN PO 01/05/25 21:45 01/11/25 10:17 650 MG Nitroglycerin 0.4 mg Q5MINP PRN SL 01/05/25 22:00 Morphine Sulfate 2 mg Q30M PRN IV 01/05/25 22:00 Enalapril Maleate 5 mg DAILY PO 01/07/25 10:00 01/12/25 09:49 5 MG Pravastatin Sodium 40 mg HS PO 01/06/25 22:00 01/11/25 22:05 40 MG Sodium Chloride 1,000 ml @ 100 mls/hr Q10H IV 01/06/25 14:15 01/11/25 16:30 100 MLS/HR Quetiapine Fumarate 50 mg HS PO 01/06/25 22:00 01/11/25 22:05 50 MG Olanzapine 2.5 mg BID PO 01/06/25 22:00 01/12/25 09:47 2.5 MG Enoxaparin Sodium 30 mg DAILY SC 01/07/25 10:00 01/12/25 09:48 30 MG Pantoprazole Sodium 40 mg DAILY@0600 PO 01/07/25 06:00 01/12/25 05:00 40 MG Albuterol 2.5 mg Q6HPRN PRN NEB 01/07/25 20:15 01/08/25 18:45 2.5 MG Ipratropium [place] 0.5 mg Q6HPRN PRN NEB 01/07/25 20:30 01/08/25 18:45 0.5 MG Diphenhydramine HCl 25 mg Q4HPRN PRN PO 01/08/25 09:45 01/11/25 15:30 25 MG Hydroxyzine Pamoate 25 mg Q6HP PRN PO 01/10/25 11:30 01/11/25 18:13 25 MG Lorazepam 1 mg Q8HP PRN PO 01/11/25 15:20 01/11/25 16:09 1 MG Laboratory Results Laboratory Tests 01/07/25 05:15 01/08/25 12:22 Urinalysis Test 01/05/25 15:55 01/06/25 17:39 Urine Hyaline Casts Few /lpf (0 - 2) Urine Color Light-yellow (Yellow) Urine Clarity Clear (Clear) Urine pH 6.5 (5.0-9.0) Urine Specific [place] 1.016 (1.001-1.035) Urine Protein Negative (Negative) Urine Ketones Trace (Negative) Urine Blood Negative /uL (Negative) Urine Nitrite Negative (Negative) Urine Bilirubin Negative (Negative) Urine Urobilinogen Normal mg/dL (Negative) Urine Leukocyte Esterase Negative /uL (Negative) Urine RBC 1 /hpf (0 - 4) Urine Microscopic WBC 5 /HPF (0-5) Urine Squamous Epithelial Cells None seen /hpf (<5) Urine Bacteria None seen /hpf (None Seen) Urine Glucose Normal mg/dL (Normal) Microbiology Microbiology Date/Time Source Procedure Growth Status 01/05/25 15:55 Voided Urine Urine Culture - Final Complete Labs and/or images reviewed: Labs reviewed by me, Image(s) reviewed by me Assessment/Plan Assessment/Plan Covering for Dr.Al Sellers Abdominal pain in the setting of complex periumbilical hernia; to rule out strangulation, surgical consult by Dr. Tabitha Fields appreciated, Surgeon Dr. Tabitha Fields planning for hernia repair, cardiac clearance requested from Dr. Zoila Arzola Acute toxic/metabolic encephalopathy in the setting of Alzheimer's dementia due to sepsis Sepsis due to suspected aspiration pneumonia suspected complicated UTI, continue Rocephin Alzheimer's dementia with behavioral changes Moderate to severe compression deformity of T12 Hypertensive heart disease without heart failure Normocytic hypochromic anemia Hyponatremia Dyslipidemia Obesity Generalized itching: Atarax Time spent 50 minutes Advanced care planning time 20 minutes Patient is DNR Came from [facility] Plan discussed with: Patient My Orders Orders - WESLEY YADAV MD Procedure Category Date Status Time Lorazepam Tablet PHA 01/11/25 In Process (Ativan Tablet) 15:20 Date of Service: Jan 12, 2025 Billing Provider: WESLEY YADAV MD Common Visit Codes: [id number] INP/OBS CARE(HIGH) WESLEY YADAV MD Jan 12, 2025 10:41
--- NOTE | 2025-01-12 13:51 | DVHINCON2 ---
Date Seen: Jan 12, 2025 Referring Physician MD Samuel Reason for Consultation Surgical clearance for hernia surgery History of Present Illness This is an 84-year-old female who presented to the emergency room via EMS with a chief complaint of back pain. At time of assessment, the patient was found A&O x 1. She is a very poor historian. Information obtained from records which indicate the patient from a post acute care facility with a chief complaint of back pain associated with abdominal discomfort, nausea, and vomiting. Cardiology consulted for cardiac risk stratification for possible hernia repair. A 12 lead electrocardiogram completed at bedside revealed a recently evolved myocardial infarction to the LAD artery. At this time, the patient denies any chest pain, SOB but complains of abdominal discomfort and nausea. Significant medical history includes hypertension, insulin-dependent diabetes mellitus, history of cerebrovascular accident, dyslipidemia, and dementia. Past Medical History Past medical history reviewed. No other significant than mentioned above. Past Surgical History Unknown past surgical history. Family History Unknown family history. Social History Recently resided at post acute facility. Allergies: Coded Allergies: NO KNOWN ALLERGIES (Unverified , 01/05/25) Home Meds Home medications reviewed. Current Medications Current Medications Medications (Trade) Dose Ordered Sig/Edward Route PRN Reason Start Time Stop Time Status Last Admin Lorazepam (Ativan Tablet) 1 mg Q8HP PRN PO ANXIETY 01/11/25 15:20 01/11/25 16:09 Review of Systems Constitutional: No symptom reported Ears, Nose, & Throat: No symptom reported Eyes: No symptom reported Neurological: No symptoms reported Pulmonary/Respiratory: No symptom reported Cardiovascular: No symptom reported Gastrointestinal: Abdominal pain, nausea, vomiting Genitourinary: No symptom reported Musculoskeletal: Back pain Skin: No symptom reported Psychiatric: No symptom reported Endocrine: No symptom reported Hemotologic/Lymphatic: No symptom reported Vital Signs Vital Signs Date Time Temp Pulse Resp B/P (MAP) Pulse Ox O2 Delivery O2 Flow Rate FiO2 01/12/25 09:49 149/89 01/12/25 08:30 97 14 95 01/12/25 06:01 Room Air* 0 21 01/12/25 05:00 98.9 98.9 Physical Exam General Appearance: A&O x1. Alert. Sitter at bedside Head Exam: Normal inspection Neck Exam: Normal inspection. Non-tender. Normal alignment Pulmonary/Respiratory: Chest non-tender. Clear bilateral breath sounds Cardiovascular/Chest: Regular rate and rhythm. S1, S2. Evolved anterior [place]. No murmurs. No JVD. Peripheral Pulses: 2+ Radial (R). 2+ Radial (L). 2+ Pedal (R). 2+ Pedal (L) Abdominal Exam: Normal bowel sounds. Soft. Ankle Exam: Negative ankle edema Lower extremities: Negative lower extremity edema Neuro/Mental Status: A&O x1. Alert. +ALOC Thoughts/Psych: Passive Appearance: In no acute distress Skin Exam: Normal inspection. Normal color. Warm. Dry Labs/Diagnostic Data Labs Test 01/08/25 12:22 01/07/25 05:15 01/06/25 17:39 01/06/25 14:25 Range/Units Sodium Level 135 L 136-145 mmol/L Potassium Level 3.7 3.5-5.1 mmol/L Chloride Level 103 98-107 mmol/L Carbon Dioxide Level 23 20-31 mmol/L Anion Gap 9 5-15 Blood Urea Nitrogen 10 9-23 mg/dL Creatinine 0.44 L 0.550-1.02 mg/dL Glomerular Filtration Rate Calc 97 >90 mL/min BUN/Creatinine Ratio 22.7 H 10.0-20.0 Serum Glucose 98 74-106 mg/dL Calcium Level 7.7 L 8.7-10.4 mg/dL White Blood Count 9.3 4.4-10.8 10^3/uL Red Blood Count 4.34 4.0-5.20 10^6/uL Hemoglobin 11.4 L 12.2-16.2 g/dL Hematocrit 34.6 L 36.0-46.0 % Mean Corpuscular Volume 79.9 L 80.0-100.0 fL Mean Corpuscular Hemoglobin 26.4 L 28.0-32.0 pg Mean Corpuscular Hemoglobin Concent 33.0 32.0-36.0 g/dL Red Cell Distribution Width 16.1 H 11.8-14.3 % Platelet Count 308 140-450 10^3/uL Mean Platelet Volume 8.0 6.9-10.8 fL Neutrophils (%) (Auto) 73.2 37.0-80.0 % Lymphocytes (%) (Auto) 12.8 10.0-50.0 % Monocytes (%) (Auto) 11.0 0.0-12.0 % Eosinophils (%) (Auto) 2.6 0.0-7.0 % Basophils (%) (Auto) 0.4 0.0-2.0 % Neutrophils # (Auto) 6.8 1.6-8.6 10 ^3/uL Lymphocytes # (Auto) 1.2 0.4-5.4 10 ^3/uL Monocytes # (Auto) 1.0 0-1.3 10 ^3/uL Eosinophils # (Auto) 0.2 0-0.8 10 ^3/uL Basophils # (Auto) 0 0-0.2 10 ^3/uL Nucleated Red Blood Cells 0.0 % Iron Level 47 L 50-170 ug/dL Total Iron Binding Capacity 331 250-425 ug/dL Percent Iron Saturation 14.2 L 15-50 % Ferritin 13.4 10-291 ng/mL Urine Color Light-yellow Yellow Urine Clarity Clear Clear Urine pH 6.5 5.0-9.0 Urine Specific [place] 1.016 1.001-1.035 Urine Protein Negative Negative Urine Ketones Trace Negative Urine Blood Negative Negative /uL Urine Nitrite Negative Negative Urine Bilirubin Negative Negative Urine Urobilinogen Normal Negative mg/dL Urine Leukocyte Esterase Negative Negative /uL Urine RBC 1 0 - 4 /hpf Urine Microscopic WBC 5 0-5 /HPF Urine Squamous Epithelial Cells None seen <5 /hpf Urine Bacteria None seen None Seen /hpf Urine Glucose Normal Normal mg/dL Influenza Type A Antigen Negative Negative Influenza Type B Antigen Negative Negative SARS-CoV-2 Antigen (Rapid) Negative NEGATIVE Test 01/06/25 13:20 01/06/25 08:21 01/05/25 16:22 01/05/25 15:55 Range/Units Ammonia < 10 L 11-32 umol/L Hemoglobin A1c 5.5 <5.7 % A1C Total Bilirubin 0.4 0.2-1.0 mg/dL Aspartate Amino Transferase (AST) 38 13-40 U/L Alanine Aminotransferase (ALT) 16 7-40 U/L Alkaline Phosphatase 99 46-116 U/L Total Protein 7.3 5.7-8.2 g/dL Albumin 4.2 3.2-4.8 g/dL Vitamin D 25-Hydroxy 34.4 30.0-100 ng/mL Thyroid Stimulating Hormone (TSH) 1.46 0.55-4.78 uIU/mL Lipase 45 12-53 U/L Urine Hyaline Casts Few 0 - 2 /lpf Microbiology Date/Time Source Procedure Growth Status 01/05/25 15:55 Voided Urine Urine Culture - Final Complete Assessment Evolved anterior wall myocardial infarction Rule out structural heart disease Hypertension Dyslipidemia HX of CVA Obesity Plan/Recommendation (Dr. Arzola) Cardiology consulted for cardiac risk stratification for possible hernia repair. After obtaining a 12 lead electrocardiogram the patient was found with an evolved anterior wall myocardial infarction. Case was discussed in full detail with Dr. Arzola. She has been scheduled for an urgent cardiac catheterization and coronary angiogram at first available. All risks and benefits of the procedure were discussed with juan Young over the phone given the patient's mentation status. He agrees to proceed with intervention. In the meantime, transferred to telemetry unit, obtain stat lab work and stat transthoracic echocardiogram. Further orders per clinical course. Thank you for allowing us to participate in this patient's care. Please call if you have any questions or concerns. Critical care time: 50 min. This medical document was created using an electronic medical record system with voice recognition software and computerized dictation system. Although this document has been carefully reviewed, there might still be some phonetic and typographical errors. Occasional wrong-word or ``sound-alike substitutions may have occurred due to the inherent limitations of voice recognition software. These areas are purely typographical due to imperfections of the software programs and do not reflect any compromise in the patient's medical care. Please read the chart carefully and recognize, using context, where these substitutions have occurred. Plan discussed with: Patient, Son, Other NYHA Physical activity limitations: NA Date of Service: Jan 12, 2025 Billing Provider: JESSICA MARMOLEJO Cardiology Common Codes: 62884-MJPZZOAA CARE 30-74 MIN JESSICA MARMOLEJO Jan 12, 2025 13:51
[2025-01-12] MEDS: ONDANSETRON HCL 4 MG/2 ML VIAL IV PRN (14:18)
[2025-01-12] MEDS: MORPHINE SULFATE INJ 2 MG/ml SYRG IV PRN (14:21)
[2025-01-12 15:18] LABS: Hematocrit 31.5 % (36.0-46.0); Hemoglobin 10.1 g/dL (12.2-16.2); Mean Corpuscular Hemoglobin 25.8 pg (28.0-32.0); Mean Corpuscular Volume 80.2 fL (80.0-100.0); Nucleated Red Blood Cells % 0.0 %
--- NOTE | 2025-01-12 15:24 | ECG ---
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
[2025-01-12 15:32] LABS: INR 1.09 (0.9-1.15); Partial Thromboplastin Time 32.0 SEC (24.5-34.5); Prothrombin Time 11.5 sec (9.3-11.8)
[2025-01-12 15:46] LABS: Alanine Aminotransferase 13 U/L (7-40); Albumin 3.5 g/dL (3.2-4.8); Alkaline Phosphatase 93 U/L (46-116); Anion Gap 8 (5-15); BUN/Creatinine Ratio 13.0 (10.0-20.0); Carbon Dioxide 26 mmol/L (20-31); Chloride 103 mmol/L (98-107); Potassium 4.0 mmol/L (3.5-5.1); Sodium 137 mmol/L (136-145); Total Protein 5.9 g/dL (5.7-8.2)
[2025-01-12 15:47] LABS: Bilirubin, Total 0.2 mg/dL (0.2-1.0); Blood Urea Nitrogen 7 mg/dL (9-23); Calcium 8.3 mg/dL (8.7-10.4); Glucose 150 mg/dL (74-106)
[2025-01-12] MEDS: HEPARIN SODIUM (PORCINE) 5000 UNITS/ML 1ML VIAL ONE (16:04)
[2025-01-12] MEDS: ANGIOMAX 250 MG VIAL IV ONE ×2 (16:04→17:26)
[2025-01-12] MEDS: fentaNYL CITRATE 100 MCG/2 ML VL ONE (16:05)
[2025-01-12] MEDS: MIDAZOLAM HCL 2MG/2ML 2ml VIAL (1mg/ml) ONE (16:05)
[2025-01-12] MEDS: VERAPAMIL 2.5MG/ML INJ 2ML VIAL IV ONE (16:05)
[2025-01-12] MEDS: SODIUM CHL 0.9% 50 ML ONE ×2 (16:06→17:26)
[2025-01-12] MEDS: LIDOCAINE 2%HCL (LOCAL ANESTH.) INJ 20ML MDV ONE (16:06)
--- NOTE | 2025-01-12 16:22 | DVHPN2 ---
Progress Note Date Seen: Jan 12, 2025 Medical Necessity Reason Pt with a Central, PICC or Fol: Yes The following are medically ne: Waters Catheter Reason for waters catheter: Bladder Retention/Obstruc Objective vital signs Vital Sign Date Time Temp Pulse Resp B/P (MAP) Pulse Ox O2 Delivery O2 Flow Rate FiO2 01/12/25 14:21 87 14 148/89 01/12/25 08:30 95 01/12/25 06:01 Room Air* 0 21 01/12/25 05:00 98.9 98.9 Total Intake and Output 01/11/25 01/11/25 01/12/25 15:00 23:00 07:00 Intake Total 1025 ml 200 ml Output Total 4 ml Balance 1021 ml 200 ml medications Current Medications Medications Dose Ordered Sig/Edward Route Start Time Stop Time Status Last Admin Dose Admin Ceftriaxone Sodium 50 ml @ 100 mls/hr DAILY@09 IV 01/06/25 09:00 01/12/25 08:49 100 MLS/HR Acetaminophen/ Hydrocodone Bitart 1 tab Q4HP PRN PO 01/05/25 21:45 01/12/25 08:50 1 TAB Ondansetron HCl 4 mg Q4HP PRN IV 01/05/25 21:45 01/12/25 14:18 4 MG Docusate Sodium 100 mg BIDPRN PRN PO 01/05/25 21:45 Acetaminophen 650 mg Q6HP PRN PO 01/05/25 21:45 01/11/25 10:17 650 MG Nitroglycerin 0.4 mg Q5MINP PRN SL 01/05/25 22:00 Morphine Sulfate 2 mg Q30M PRN IV 01/05/25 22:00 01/12/25 14:21 2 MG Enalapril Maleate 5 mg DAILY PO 01/07/25 10:00 01/12/25 09:49 5 MG Pravastatin Sodium 40 mg HS PO 01/06/25 22:00 01/11/25 22:05 40 MG Sodium Chloride 1,000 ml @ 100 mls/hr Q10H IV 01/06/25 14:15 01/11/25 16:30 100 MLS/HR Quetiapine Fumarate 50 mg HS PO 01/06/25 22:00 01/11/25 22:05 50 MG Olanzapine 2.5 mg BID PO 01/06/25 22:00 01/12/25 09:47 2.5 MG Enoxaparin Sodium 30 mg DAILY SC 01/07/25 10:00 01/12/25 09:48 30 MG Pantoprazole Sodium 40 mg DAILY@0600 PO 01/07/25 06:00 01/12/25 05:00 40 MG Albuterol 2.5 mg Q6HPRN PRN NEB 01/07/25 20:15 01/08/25 18:45 2.5 MG Ipratropium [place] 0.5 mg Q6HPRN PRN NEB 01/07/25 20:30 01/08/25 18:45 0.5 MG Diphenhydramine HCl 25 mg Q4HPRN PRN PO 01/08/25 09:45 01/12/25 14:18 25 MG Hydroxyzine Pamoate 25 mg Q6HP PRN PO 01/10/25 11:30 01/11/25 18:13 25 MG Lorazepam 1 mg Q8HP PRN PO 01/11/25 15:20 01/11/25 16:09 1 MG laboratory and microbiology Laboratory Tests 01/12/25 15:10 Test 01/12/25 15:10 Range/Units Serum Glucose 150 H 74-106 mg/dL Microbiology Date/Time Source Procedure Growth Status 01/05/25 15:55 Voided Urine Urine Culture - Final Complete Problem List/Assessment/Plan Problem List/Assessment/Plan AFEBRILE VSS ABD SOFT RECURRENT VENTRAL HERNIA REDUCED MANUALLY BM + SBO RESOLVED CONSIDER EMERGENT SURGERY BASED ON ONGOING EVAL CARDIAC EVAL ONGOING Plan discussed with: Other Dietary Evaluation Review Comments: 1) Initiate Glucerna bid 2) Encourage optimal PO intake 3) Follow-up with cardiology, pulmonology and neurology 4) Continue to monitor I&O, labs, and skin integrity Expected Outcomes/Goals: 1) appetite and labs to improve 2) f/u in 3-5 days ANTONIO MAYO MD Jan 12, 2025 16:22
[2025-01-12] MEDS: IODIXANOL 320MG/ML 100ML BTL IV ONE ×2 (16:28→17:35)
[2025-01-12] MEDS: NOREPINEPHRINE 8 MG/250ML KIT 250 ML IV ONE (16:57)
[2025-01-12] MEDS: TICAGRELOR 90 MG TAB ONE (18:03)
--- NOTE | 2025-01-12 19:08 | DVHOP ---
DATE OF SURGERY: 01/12/2025 TECHNIQUE PERFORMED: * Emergency case. * Ultrasound of the right radial artery. * Management of the conscious sedation. * Left heart catheterization. * Left ventriculogram. * [place] selective left and right coronary artery angiography. COMPLICATIONS: None. ASSISTANTS: Assisted by our staff here is Chucky Ferreira and Angie. INDICATIONS: The patient has an ST elevation noted in the anterior lead. DESCRIPTION OF PROCEDURE: brought to the microbiology lab manager. The right radial area was thoroughly cleaned with soap and Betadine. Lidocaine was given and 6-Syriac arterial line was placed after doing ultrasound. With the help of Glidewire, we were able to put a TIG catheter and we were able to do the left coronary angiography and we also did a right coronary angiography. Ultimately, at the end of the procedure, we also with the help of a pigtail catheter from right femoral artery and a left heart cath and the left ventriculogram was also done. IMPRESSION: * Normal left main. * Left anterior descending artery proximal one-third region underlying 99.9% narrowing DIAZ grade 2 flow. * Circumflex and obtuse marginal artery are normal. * The right coronary artery has mild disease. * Ejection fraction of the left ventricle is in the range of 50%, apical anterior wall hypokinesis. * PLAN OF ACTION: I advised the patient to undergo the intervention of the left anterior descending artery. Right coronary artery is the large dominant artery. Magdi Arzola MD MP/MEHRDAD/MONIQUE/CHAVO TID: [id number] RECEIPT: [id number] [facility]
[2025-01-12] MEDS: ATORVASTATIN 20 MG TAB PO SCH (21:08)
--- NOTE | 2025-01-12 21:48 | DVHINCON2 ---
Date Seen: Jan 12, 2025 Referring Physician MD Samuel Reason for Consultation Surgical clearance for hernia surgery History of Present Illness This is an 84-year-old female with a PMH of hypertension, insulin-dependent diabetes mellitus, history of cerebrovascular accident, dyslipidemia, and demen tia brought in by EMS with complaints of back pain. At time of assessment, the patient was found A&O x 1. She is a very poor historian. Information obtained from records which indicate the patient from a post acute care facility with a chief complaint of back pain associated with abdominal discomfort, nausea, and vomiting. Cardiology consulted for cardiac risk stratification for possible hernia repair. A 12 lead electrocardiogram completed at bedside revealed a recently evolved myocardial infarction to the LAD artery. At this time, the patient denies any chest pain, SOB but complains of abdominal discomfort and nausea. Past Medical History Past medical history reviewed. No other significant than mentioned above. Past Surgical History Unknown past surgical history. Allergies: Coded Allergies: NO KNOWN ALLERGIES (Unverified , 01/05/25) Current Medications Current Medications Medications (Trade) Dose Ordered Sig/Edward Route PRN Reason Start Time Stop Time Status Last Admin Clopidogrel Bisulfate (Plavix) 75 mg DAILY PO 01/14/25 10:00 Metoprolol Succinate (Toprol Xl) 25 mg DAILY PO 01/13/25 10:00 Aspirin 81 mg DAILY PO 01/13/25 10:00 Atorvastatin Calcium (Lipitor) 80 mg HS PO 01/12/25 22:00 01/12/25 21:08 Review of Systems Constitutional: No symptom reported Ears, Nose, & Throat: No symptom reported Eyes: No symptom reported Neurological: No symptoms reported Pulmonary/Respiratory: No symptom reported Cardiovascular: No symptom reported Gastrointestinal: Abdominal pain, nausea, vomiting Genitourinary: No symptom reported Musculoskeletal: Back pain Skin: No symptom reported Psychiatric: No symptom reported Endocrine: No symptom reported Hemotologic/Lymphatic: No symptom reported Vital Signs Vital Signs Date Time Temp Pulse Resp B/P (MAP) Pulse Ox O2 Delivery O2 Flow Rate FiO2 01/12/25 20:32 97.7 75 18 119/75 (90) 95 97.7 01/12/25 10:00 Room Air* 0 21 Physical Exam GENERAL: A&O x1. Alert. Sitter at bedside. EYES: PERRL, EOMI. Anicteric. HENT: Moist mucous membranes. LUNGS: Clear to auscultation bilaterally. CARDIOVASCULAR: Regular rate and rhythm. ABDOMEN: Soft, non-tender and non-distended. EXTREMITIES: No edema. SKIN: Warm, dry. Labs/Diagnostic Data Labs Test 01/12/25 15:10 01/07/25 05:15 01/06/25 17:39 01/06/25 14:25 Range/Units White Blood Count 6.5 # 4.4-10.8 10^3/uL Red Blood Count 3.93 L 4.0-5.20 10^6/uL Hemoglobin 10.1 L 12.2-16.2 g/dL Hematocrit 31.5 L 36.0-46.0 % Mean Corpuscular Volume 80.2 80.0-100.0 fL Mean Corpuscular Hemoglobin 25.8 L 28.0-32.0 pg Mean Corpuscular Hemoglobin Concent 32.2 32.0-36.0 g/dL Red Cell Distribution Width 17.0 H 11.8-14.3 % Platelet Count 283 140-450 10^3/uL Mean Platelet Volume 7.9 6.9-10.8 fL Neutrophils (%) (Auto) 60.5 37.0-80.0 % Lymphocytes (%) (Auto) 21.1 10.0-50.0 % Monocytes (%) (Auto) 11.5 0.0-12.0 % Eosinophils (%) (Auto) 6.3 0.0-7.0 % Basophils (%) (Auto) 0.6 0.0-2.0 % Neutrophils # (Auto) 4.0 1.6-8.6 10 ^3/uL Lymphocytes # (Auto) 1.4 0.4-5.4 10 ^3/uL Monocytes # (Auto) 0.8 0-1.3 10 ^3/uL Eosinophils # (Auto) 0.4 0-0.8 10 ^3/uL Basophils # (Auto) 0 0-0.2 10 ^3/uL Nucleated Red Blood Cells 0.0 % Prothrombin Time 11.5 9.3-11.8 sec Prothrombin Time INR 1.09 0.9-1.15 Activated Partial Thromboplast Time 32.0 24.5-34.5 SEC Sodium Level 137 136-145 mmol/L Potassium Level 4.0 3.5-5.1 mmol/L Chloride Level 103 98-107 mmol/L Carbon Dioxide Level 26 20-31 mmol/L Anion Gap 8 5-15 Blood Urea Nitrogen 7 L 9-23 mg/dL Creatinine 0.54 L 0.550-1.02 mg/dL Glomerular Filtration Rate Calc 92 >90 mL/min BUN/Creatinine Ratio 13.0 10.0-20.0 Serum Glucose 150 H 74-106 mg/dL Calcium Level 8.3 L 8.7-10.4 mg/dL Total Bilirubin 0.2 0.2-1.0 mg/dL Aspartate Amino Transferase (AST) 21 13-40 U/L Alanine Aminotransferase (ALT) 13 7-40 U/L Alkaline Phosphatase 93 46-116 U/L Troponin I High Sensitivity 681 *H </=34 ng/L Total Protein 5.9 5.7-8.2 g/dL Albumin 3.5 3.2-4.8 g/dL Iron Level 47 L 50-170 ug/dL Total Iron Binding Capacity 331 250-425 ug/dL Percent Iron Saturation 14.2 L 15-50 % Ferritin 13.4 10-291 ng/mL Urine Color Light-yellow Yellow Urine Clarity Clear Clear Urine pH 6.5 5.0-9.0 Urine Specific [place] 1.016 1.001-1.035 Urine Protein Negative Negative Urine Ketones Trace Negative Urine Blood Negative Negative /uL Urine Nitrite Negative Negative Urine Bilirubin Negative Negative Urine Urobilinogen Normal Negative mg/dL Urine Leukocyte Esterase Negative Negative /uL Urine RBC 1 0 - 4 /hpf Urine Microscopic WBC 5 0-5 /HPF Urine Squamous Epithelial Cells None seen <5 /hpf Urine Bacteria None seen None Seen /hpf Urine Glucose Normal Normal mg/dL Influenza Type A Antigen Negative Negative Influenza Type B Antigen Negative Negative SARS-CoV-2 Antigen (Rapid) Negative NEGATIVE Test 01/06/25 13:20 01/06/25 08:21 01/05/25 16:22 01/05/25 15:55 Range/Units Ammonia < 10 L 11-32 umol/L Hemoglobin A1c 5.5 <5.7 % A1C Vitamin D 25-Hydroxy 34.4 30.0-100 ng/mL Thyroid Stimulating Hormone (TSH) 1.46 0.55-4.78 uIU/mL Lipase 45 12-53 U/L Urine Hyaline Casts Few 0 - 2 /lpf Microbiology Date/Time Source Procedure Growth Status 01/05/25 15:55 Voided Urine Urine Culture - Final Complete Assessment Evolved anterior wall myocardial infarction. Rule out structural heart disease. Hypertension. Dyslipidemia. HX of CVA. Obesity. Plan/Recommendation I agree with your ongoing assessment and care of plan. Patient has been seen by Ghazal Chávez NP on my behalf. We have discussed the plan with the patient. Cardiology consulted for cardiac risk stratification for possible hernia repair. After obtaining a 12 lead electrocardiogram the patient was found with an evolved anterior wall myocardial infarction. Case was discussed in full detail with Dr. Brennan. She has been scheduled for an urgent cardiac catheterization and coronary angiogram at first available. All risks and benefits of the procedure were discussed with son Lester Young over the phone given the patient's mentation status. He agrees to proceed with intervention. In the meantime, transferred to telemetry unit, obtain stat lab work and stat transthoracic echocardiogram. Additional plan as per the hospital course. Plan discussed with: Patient, Son NYHA Physical activity limitations: NA Date of Service: Jan 12, 2025 Billing Provider: IVÁN BRENNAN MD Cardiology Common Codes: 86549-[facility] Cardiology Consultation Codes: 92693-[id number] CONSULT <80MIN IVÁN BRENNAN MD Jan 12, 2025 21:48
--- NOTE | 2025-01-12 22:10 | DVHOP ---
DATE OF SURGERY: 01/12/2025 TECHNIQUE PERFORMED: * Emergency case. * Insertion of 6-Danish arterial line from the right radial artery under fluoroscopic guidance. * Management of conscious sedation. * Left coronary angiography. * Mechanical thrombectomy of the left anterior descending artery with the help of Altha catheter. * Balloon angioplasty of the proximal region of the left anterior descending artery with 2.0 x 12 mm length semi-compliant balloon. * Stenting and angioplasty of the proximal region of the left anterior descending artery with 3.5 x 12 mm length [place] stent of [place]. * Intravascular ultrasound of the left main and also of the left anterior descending artery stented region. * Right iliofemoral artery angiography. * Arteriotomy, Angio-Seal also of the right femoral artery. ASSISTANTS: Assisted by Belinda Ferreira and Chucky, and other staff. INDICATIONS: The patient has 99.9% narrowing of the left anterior descending artery. DESCRIPTION OF PROCEDURE: We have initially put a JL3.5 catheter via radial artery, unable to engage well. So now, we went from the right femoral artery and XB 3.5, 6-Danish guiding catheter was passed and the left angio done. We were able to put a Choice Floppy wire subsequently now with the help of 2.0 balloon, subsequently we did the mechanical thrombectomy with the help of the Altha catheter. Subsequently, we put a balloon 2.0 x 12 mm, balloon angioplasty was done. Then, we deployed a stent 3.5 x 12. The stent was fully deployed at total of 12 atmosphere. Stent site was increased to 3.55 mm in size. Balloon was deflated. subsequently, we put a pigtail catheter. Intravascular ultrasound was done of the left artery. Result was satisfactory. Subsequently, we did also left heart cath and left ventriculogram. Subsequently, we also did a right iliofemoral angiography and arteriotomy, Angio-Seal was done. Procedure went well. CONCLUSION: The left anterior descending artery approximately has 99.9% narrowing, DIAZ grade 2 flow. Postprocedure, DIAZ grade 3 flow, residual stenosis is 0%. Magdi Arzola MD MP/NANCI/SEFERINO TID: [id number] RECEIPT: [id number] [facility]
--- NOTE | 2025-01-12 23:05 | DVHSR ---
APPROVED REPORT EXAM: Two-dimensional and M-mode echocardiogram with Doppler and color Doppler. Blood Pressure: 149/89 mmHg INDICATION Pre-Op RISK FACTORS Height: 5'6", Weight: 177 DIMENSIONS LVDd4.1 (3.8-5.7cm)LA (2D)3.9 (1.9-4.0cm)Aortic Root (2.0-3.7cm) LVDs3.5 (2.5-4.0cm)LA (MM) (1.9-4.0cm)Aortic Cusp Exc (1.5-2.0cm) EF (%) 31.0 (55-70%)Rt. Atrium5.0 (1.9-4.0cm)Asc. Aorta cm IVSd1.1 (0.7-1.1cm)RV (D) (1.8-2.4cm) Mitral Valve MitralMitral Stenosis E/A ratio0.02D MVAcm2 Aortic Valve Aortic ValveAortic Stenosis V10.77m/[place] Mean GR.9mmHg V21.94m/[place] Peak GR.16mmHg LVOT Diameter2.0 (1.8-2.4cm)Doppler AVA1.25cm2 Tricuspid Valve TR Velocity2.41m/s [id number] Other Information Quality : Technically LimitedRhythm : Technically limited study due to body habitus and patient position. Conclusion ENTIRE ANTERIOR , APICAL WALL AND DISTAL TWO THIRD OF IVS IS REMARKABLY HYPOKINETIC LV EF IS 30% AND IS MODERATELY REDUCED CALCIFIED AORTIC LEAFLETS MODERATELY CALCIFIED TIPS OF MITRAL VALVE NORMAL RV FUNCTION NO EFFUSION
[2025-01-13] VITALS (14 sets, daily range): BP systolic 95–122; BP diastolic 51–74; PULSE 63–89; RESP 17–24; TEMP 97.9–98.3; O2SAT 93–100
--- NOTE | 2025-01-13 07:20 | ECG ---
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
[2025-01-13] MEDS: CLOPIDOGREL BISULFATE 75 MG TAB PO ONE (09:58)
[2025-01-13] MEDS: METOPROLOL SUCCINATE XL 50 MG TAB PO SCH (09:58)
--- NOTE | 2025-01-13 10:14 | DVHPN2 ---
Reviewed: Care Plan, H&P, Labs, Medications, Previous Orders, Radiology, Other (Consultation) Changes from previous H/P or p: No Changes Objective Vitals Vital Signs Date Time Temp Pulse Resp B/P (MAP) Pulse Ox O2 Delivery O2 Flow Rate FiO2 01/13/25 09:58 89 122/66 01/13/25 09:00 98.3 20 98 98.3 01/12/25 20:35 Room Air 01/12/25 20:35 0 21 Intake/Output Intake and Output 01/13/25 07:00 Intake Total 920 ml Balance 920 ml Intake Oral 920 ml # Voids 9 # Bowel Movements 1 General Appearance: Alert, mild distress, Other (With mittens; confused; only oriented to person sometimes) HEENT: Atraumatic Lungs: Clear to auscultation, Normal air movement Cardiovascular: Regular rate, Normal S1, Normal S2 Abdomen: Normal bowel sounds, Soft, Other (Tender periumbilical hernia; unable to reduce manually) Neuro: Normal speech, Cranial nerves 3-12 NL, Other (Confused; only oriented to person sometimes) Psych/Mental Status: Other (Confused) Medications Current Medications Medications Dose Ordered Sig/Edward Route Start Time Stop Time Status Last Admin Dose Admin Ceftriaxone Sodium 50 ml @ 100 mls/hr DAILY@09 IV 01/06/25 09:00 01/13/25 09:19 100 MLS/HR Acetaminophen/ Hydrocodone Bitart 1 tab Q4HP PRN PO 01/05/25 21:45 01/12/25 21:03 1 TAB Ondansetron HCl 4 mg Q4HP PRN IV 01/05/25 21:45 01/12/25 14:18 4 MG Docusate Sodium 100 mg BIDPRN PRN PO 01/05/25 21:45 Acetaminophen 650 mg Q6HP PRN PO 01/05/25 21:45 01/11/25 10:17 650 MG Nitroglycerin 0.4 mg Q5MINP PRN SL 01/05/25 22:00 Morphine Sulfate 2 mg Q30M PRN IV 01/05/25 22:00 01/12/25 14:21 2 MG Enalapril Maleate 5 mg DAILY PO 01/07/25 10:00 01/12/25 09:49 5 MG Pravastatin Sodium 40 mg HS PO 01/06/25 22:00 01/12/25 21:08 40 MG Sodium Chloride 1,000 ml @ 100 mls/hr Q10H IV 01/06/25 14:15 01/13/25 00:25 100 MLS/HR Quetiapine Fumarate 50 mg HS PO 01/06/25 22:00 01/12/25 21:08 50 MG Olanzapine 2.5 mg BID PO 01/06/25 22:00 01/13/25 09:45 2.5 MG Enoxaparin Sodium 30 mg DAILY SC 01/07/25 10:00 01/13/25 09:46 30 MG Pantoprazole Sodium 40 mg DAILY@0600 PO 01/07/25 06:00 01/13/25 05:50 40 MG Albuterol 2.5 mg Q6HPRN PRN NEB 01/07/25 20:15 01/08/25 18:45 2.5 MG Ipratropium [place] 0.5 mg Q6HPRN PRN NEB 01/07/25 20:30 01/08/25 18:45 0.5 MG Diphenhydramine HCl 25 mg Q4HPRN PRN PO 01/08/25 09:45 01/13/25 09:44 25 MG Hydroxyzine Pamoate 25 mg Q6HP PRN PO 01/10/25 11:30 01/11/25 18:13 25 MG Lorazepam 1 mg Q8HP PRN PO 01/11/25 15:20 01/11/25 16:09 1 MG Clopidogrel Bisulfate 75 mg DAILY PO 01/14/25 10:00 Metoprolol Succinate 25 mg DAILY PO 01/13/25 10:00 01/13/25 09:58 25 MG Aspirin 81 mg DAILY PO 01/13/25 10:00 01/13/25 09:45 81 MG Atorvastatin Calcium 80 mg HS PO 01/12/25 22:00 01/12/25 21:08 80 MG Laboratory Results Laboratory Tests 01/12/25 15:10 Chemistry Test 01/12/25 15:10 Albumin 3.5 g/dL (3.2-4.8) Calcium Level 8.3 mg/dL (8.7-10.4) L Total Protein 5.9 g/dL (5.7-8.2) Coagulation Test 01/12/25 15:10 Prothrombin Time 11.5 sec (9.3-11.8) Prothrombin Time INR 1.09 (0.9-1.15) Activated Partial Thromboplast Time 32.0 SEC (24.5-34.5) LFT Test 01/12/25 15:10 Alanine Aminotransferase (ALT) 13 U/L (7-40) Alkaline Phosphatase 93 U/L (46-116) Aspartate Amino Transferase (AST) 21 U/L (13-40) Total Bilirubin 0.2 mg/dL (0.2-1.0) Urinalysis Test 01/05/25 15:55 01/06/25 17:39 Urine Hyaline Casts Few /lpf (0 - 2) Urine Color Light-yellow (Yellow) Urine Clarity Clear (Clear) Urine pH 6.5 (5.0-9.0) Urine Specific [place] 1.016 (1.001-1.035) Urine Protein Negative (Negative) Urine Ketones Trace (Negative) Urine Blood Negative /uL (Negative) Urine Nitrite Negative (Negative) Urine Bilirubin Negative (Negative) Urine Urobilinogen Normal mg/dL (Negative) Urine Leukocyte Esterase Negative /uL (Negative) Urine RBC 1 /hpf (0 - 4) Urine Microscopic WBC 5 /HPF (0-5) Urine Squamous Epithelial Cells None seen /hpf (<5) Urine Bacteria None seen /hpf (None Seen) Urine Glucose Normal mg/dL (Normal) Microbiology Microbiology Date/Time Source Procedure Growth Status 01/05/25 15:55 Voided Urine Urine Culture - Final Complete Labs and/or images reviewed: Labs reviewed by me, Image(s) reviewed by me Assessment/Plan Assessment/Plan Covering for Dr.Al Sellers Abdominal pain in the setting of complex periumbilical hernia; to rule out strangulation, surgical consult by Dr. Tabitha Fields appreciated, Surgeon Dr. Tabitha Fields planning for hernia repair, cardiac clearance requested from Dr. 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 Zoila Arzola Acute toxic/metabolic encephalopathy in the setting of Alzheimer's dementia due to sepsis Sepsis due to suspected aspiration pneumonia suspected complicated UTI, continue Rocephin Alzheimer's dementia with behavioral changes Moderate to severe compression deformity of T12 Hypertensive heart disease without heart failure Normocytic hypochromic anemia Hyponatremia Dyslipidemia Obesity Generalized itching: Atarax Time spent 50 minutes Advanced care planning time 20 minutes Patient is DNR Came from [facility] Plan discussed with: Patient My Orders Orders - WESLEY YADAV MD Procedure Category Date Status Time * Cardiology Consult CONS 01/12/25 Transmitted 10:37 Date of Service: Jan 13, 2025 Billing Provider: WESLEY YADAV MD Common Visit Codes: [id number] INP/OBS CARE(HIGH) WESLEY YADAV MD Jan 13, 2025 10:14
[2025-01-13 12:39] LABS: Hematocrit 29.0 % (36.0-46.0); Hemoglobin 9.4 g/dL (12.2-16.2); Mean Corpuscular Hemoglobin 26.0 pg (28.0-32.0); Mean Corpuscular Volume 80.0 fL (80.0-100.0); Nucleated Red Blood Cells % 0.0 %
--- NOTE | 2025-01-13 12:44 | DVHPN2 ---
Consult Progress Note Date Seen: Jan 13, 2025 Subjective Review of Systems: CVS:Normal, RESPIRATORY:Normal, NEURO:Abnormal Objective vital signs Vital Sign Date Time Temp Pulse Resp B/P (MAP) Pulse Ox O2 Delivery O2 Flow Rate FiO2 01/13/25 11:01 122/66 01/13/25 09:58 89 01/13/25 09:00 98.3 20 98 98.3 01/12/25 20:35 Room Air 01/12/25 20:35 0 21 Total Intake and Output 01/12/25 01/12/25 01/13/25 15:00 23:00 07:00 Intake Total 800 ml 120 ml Balance 800 ml 120 ml medications Current Medications Medications Dose Ordered Sig/Edward Route Start Time Stop Time Status Last Admin Dose Admin Ceftriaxone Sodium 50 ml @ 100 mls/hr DAILY@09 IV 01/06/25 09:00 01/13/25 09:19 100 MLS/HR Acetaminophen/ Hydrocodone Bitart 1 tab Q4HP PRN PO 01/05/25 21:45 01/12/25 21:03 1 TAB Ondansetron HCl 4 mg Q4HP PRN IV 01/05/25 21:45 01/12/25 14:18 4 MG Docusate Sodium 100 mg BIDPRN PRN PO 01/05/25 21:45 Acetaminophen 650 mg Q6HP PRN PO 01/05/25 21:45 01/11/25 10:17 650 MG Nitroglycerin 0.4 mg Q5MINP PRN SL 01/05/25 22:00 Morphine Sulfate 2 mg Q30M PRN IV 01/05/25 22:00 01/12/25 14:21 2 MG Enalapril Maleate 5 mg DAILY PO 01/07/25 10:00 01/13/25 11:01 5 MG Pravastatin Sodium 40 mg HS PO 01/06/25 22:00 01/12/25 21:08 40 MG Sodium Chloride 1,000 ml @ 100 mls/hr Q10H IV 01/06/25 14:15 01/13/25 00:25 100 MLS/HR Quetiapine Fumarate 50 mg HS PO 01/06/25 22:00 01/12/25 21:08 50 MG Olanzapine 2.5 mg BID PO 01/06/25 22:00 01/13/25 09:45 2.5 MG Enoxaparin Sodium 30 mg DAILY SC 01/07/25 10:00 01/13/25 09:46 30 MG Pantoprazole Sodium 40 mg DAILY@0600 PO 01/07/25 06:00 01/13/25 05:50 40 MG Albuterol 2.5 mg Q6HPRN PRN NEB 01/07/25 20:15 01/08/25 18:45 2.5 MG Ipratropium [place] 0.5 mg Q6HPRN PRN NEB 01/07/25 20:30 01/08/25 18:45 0.5 MG Diphenhydramine HCl 25 mg Q4HPRN PRN PO 01/08/25 09:45 01/13/25 09:44 25 MG Hydroxyzine Pamoate 25 mg Q6HP PRN PO 01/10/25 11:30 01/11/25 18:13 25 MG Lorazepam 1 mg Q8HP PRN PO 01/11/25 15:20 01/11/25 16:09 1 MG Clopidogrel Bisulfate 75 mg DAILY PO 01/14/25 10:00 Metoprolol Succinate 25 mg DAILY PO 01/13/25 10:00 01/13/25 09:58 25 MG Aspirin 81 mg DAILY PO 01/13/25 10:00 01/13/25 09:45 81 MG Atorvastatin Calcium 80 mg HS PO 01/12/25 22:00 01/12/25 21:08 80 MG Examination: LUNGS:Normal, CVS:Normal (NSR), NEURO:Abnormal (A&O x 2) laboratory and microbiology Laboratory Tests 01/13/25 12:19 Test 01/13/25 12:19 Range/Units Serum Glucose Pending Problem List/Assessment/Plan Problem List/Assessment/Plan Evolved anterior wall myocardial infarction Ischemic cardiomyopathy with LVEF of 30% Chronic compensated HFrEF Hypertension Dyslipidemia HX of CVA Obesity Plan/Recommendation (Dr. Arzola) Cardiology consulted for cardiac risk stratification for possible hernia repair. After obtaining a 12 lead electrocardiogram the patient was found with an evolved anterior wall myocardial infarction. The patient underwent a successful cardiac catheterization and coronary angiogram of a99.9% LAD occlusion x 1 JOSEPHINE. Transthoracic echocardiogram reveals an EF of 30% with entire anterior, apical wall, and distal two thirds of IVS remarkably hypokinetic. Recommendations are for DAPT with Plavix, lipid-lowering agent, and initiation of full GDMT for CHF. Patient is to repeat a transthoracic echocardiogram within three months for re- evaluation of left ventricular function. If no improvement, she may be a candidate for an ICD. Follow-up with a primary leguillon debeader within 1-2 weeks post-discharge. The patient is not a candidate for elective surgical interventions at this time. We will sign off. Kindly call with any questions or concerns. Thank you for allowing us to participate in this patient's care. This medical document was created using an electronic medical record system with voice recognition software and computerized dictation system. Although this document has been carefully reviewed, there might still be some phonetic and typographical errors. Occasional wrong-word or ``sound-alike substitutions may have occurred due to the inherent limitations of voice recognition software. These areas are purely typographical due to imperfections of the software programs and do not reflect any compromise in the patient's medical care. Please read the chart carefully and recognize, using context, where these substitutions have occurred. Plan discussed with: Patient, Son, Other Dietary Evaluation Review Comments: 1) Initiate Glucerna bid 2) Encourage optimal PO intake 3) Follow-up with cardiology, pulmonology and neurology 4) Continue to monitor I&O, labs, and skin integrity Expected Outcomes/Goals: 1) appetite and labs to improve 2) f/u in 3-5 days Date of Service: Jan 13, 2025 Billing Provider: JESSICA MARMOLEJO Cardiology Common Codes: [id number] HOSP CARE(High JESSICA MARMOLEJO Jan 13, 2025 12:44
[2025-01-13 12:48] LABS: Chloride 102 mmol/L (98-107); Potassium 4.2 mmol/L (3.5-5.1)
[2025-01-13 12:49] LABS: Anion Gap 7 (5-15); Carbon Dioxide 27 mmol/L (20-31)
[2025-01-13 12:54] LABS: BUN/Creatinine Ratio 15.6 (10.0-20.0)
[2025-01-13 13:00] LABS: Blood Urea Nitrogen 7 mg/dL (9-23); Glucose 144 mg/dL (74-106); Sodium 136 mmol/L (136-145)
[2025-01-13 13:01] LABS: Calcium 8.6 mg/dL (8.7-10.4)
--- NOTE | 2025-01-13 22:13 | DVHPN2 ---
Consult Progress Note Date Seen: Jan 13, 2025 Subjective Other Systems: Patient was seen and evaluated in follow up. Patient is c/o lower abdominal pain. The patient is not a candidate for elective surgical interventions at this time. HGB 9.4, HCT 29. Telemetry reviewed. Objective vital signs Vital Sign Date Time Temp Pulse Resp B/P (MAP) Pulse Ox O2 Delivery O2 Flow Rate FiO2 01/13/25 21:00 63 17 120/61 (80) 93 01/13/25 20:40 21 01/13/25 19:05 Room Air* 0 01/13/25 17:00 97.9 97.9 Total Intake and Output 01/12/25 01/12/25 01/13/25 15:00 23:00 07:00 Intake Total 50 ml 800 ml 120 ml Balance 50 ml 800 ml 120 ml medications Current Medications Medications Dose Ordered Sig/Edward Route Start Time Stop Time Status Last Admin Dose Admin Ceftriaxone Sodium 50 ml @ 100 mls/hr DAILY@09 IV 01/06/25 09:00 01/13/25 09:19 100 MLS/HR Acetaminophen/ Hydrocodone Bitart 1 tab Q4HP PRN PO 01/05/25 21:45 01/13/25 14:35 1 TAB Ondansetron HCl 4 mg Q4HP PRN IV 01/05/25 21:45 01/12/25 14:18 4 MG Docusate Sodium 100 mg BIDPRN PRN PO 01/05/25 21:45 Acetaminophen 650 mg Q6HP PRN PO 01/05/25 21:45 01/11/25 10:17 650 MG Nitroglycerin 0.4 mg Q5MINP PRN SL 01/05/25 22:00 Morphine Sulfate 2 mg Q30M PRN IV 01/05/25 22:00 01/12/25 14:21 2 MG Pravastatin Sodium 40 mg HS PO 01/06/25 22:00 01/12/25 21:08 40 MG Sodium Chloride 1,000 ml @ 100 mls/hr Q10H IV 01/06/25 14:15 01/13/25 00:25 100 MLS/HR Quetiapine Fumarate 50 mg HS PO 01/06/25 22:00 01/12/25 21:08 50 MG Olanzapine 2.5 mg BID PO 01/06/25 22:00 01/13/25 09:45 2.5 MG Enoxaparin Sodium 30 mg DAILY SC 01/07/25 10:00 01/13/25 09:46 30 MG Pantoprazole Sodium 40 mg DAILY@0600 PO 01/07/25 06:00 01/13/25 05:50 40 MG Albuterol 2.5 mg Q6HPRN PRN NEB 01/07/25 20:15 01/08/25 18:45 2.5 MG Ipratropium [place] 0.5 mg Q6HPRN PRN NEB 01/07/25 20:30 01/08/25 18:45 0.5 MG Diphenhydramine HCl 25 mg Q4HPRN PRN PO 01/08/25 09:45 01/13/25 14:35 25 MG Hydroxyzine Pamoate 25 mg Q6HP PRN PO 01/10/25 11:30 01/13/25 16:19 25 MG Lorazepam 1 mg Q8HP PRN PO 01/11/25 15:20 01/13/25 16:19 1 MG Clopidogrel Bisulfate 75 mg DAILY PO 01/14/25 10:00 Metoprolol Succinate 25 mg DAILY PO 01/13/25 10:00 01/13/25 09:58 25 MG Aspirin 81 mg DAILY PO 01/13/25 10:00 01/13/25 09:45 81 MG Atorvastatin Calcium 80 mg HS PO 01/12/25 22:00 01/12/25 21:08 80 MG Sacubitril/ Valsartan 1 tab BID PO 01/14/25 22:00 Empaglifozin 10 mg DAILY PO 01/14/25 10:00 Spironolactone 25 mg DAILY PO 01/14/25 10:00 Examination: GENERAL:Normal, HEENT:Normal, NECK:Normal, CVS:Normal, ABDOMEN:Normal, MSK:Normal, SKIN:Normal, NEURO:Abnormal (A&O x 2) laboratory and microbiology Laboratory Tests 01/13/25 12:19 Test 01/13/25 12:19 Range/Units Serum Glucose 144 H 74-106 mg/dL Problem List/Assessment/Plan Problem List/Assessment/Plan Evolved anterior wall myocardial infarction. Ischemic cardiomyopathy with LVEF of 30%. Chronic compensated HFrEF. Hypertension. Dyslipidemia. HX of CVA. Obesity. Plan/Recommendation Continued all current supportive medical care. Cardiology consulted for cardiac risk stratification for possible hernia repair. After obtaining a 12 lead electrocardiogram the patient was found with an evolved anterior wall myocardial infarction. The patient underwent a successful cardiac catheterization and coronary angiogram of a99.9% LAD occlusion x 1 JOSEPHINE. Transthoracic echocardiogram reveals an EF of 30% with entire anterior, apical wall, and distal two thirds of IVS remarkably hypokinetic. Recommendations are for DAPT with Plavix, lipid-lowering agent, and initiation of full GDMT for CHF. Patient is to repeat a transthoracic echocardiogram within three months for re- evaluation of left ventricular function. If no improvement, she may be a candidate for an ICD. Follow-up with a primary teacher within 1-2 weeks post-discharge. The patient is not a candidate for elective surgical interventions at this time. Additional plan as per the hospital course. Plan discussed with: Patient Dietary Evaluation Review Comments: 1) Initiate Glucerna bid 2) Encourage optimal PO intake 3) Follow-up with cardiology, pulmonology and neurology 4) Continue to monitor I&O, labs, and skin integrity Expected Outcomes/Goals: 1) appetite and labs to improve 2) f/u in 3-5 days Date of Service: Jan 13, 2025 Billing Provider: IVÁN BRENNAN MD Cardiology Common Codes: [id number] HOSP CARE(High IVÁN BRENNAN MD Jan 13, 2025 22:13
[2025-01-14] VITALS (10 sets, daily range): BP systolic 116–152; BP diastolic 68–94; PULSE 72–104; RESP 16–17; TEMP 96.9–98.7; O2SAT 93–100
[2025-01-14] MEDS: SPIRONOLACTONE 25 MG TAB PO SCH (09:01)
[2025-01-14] MEDS: EMPAGLIFLOZIN 10 MG TAB PO SCH (09:01)
[2025-01-14] MEDS: CLOPIDOGREL BISULFATE 75 MG TAB PO SCH (09:01)
--- NOTE | 2025-01-14 09:29 | DVHPN2 ---
Reviewed: Care Plan, H&P, Labs, Medications, Previous Orders, Radiology, Other (Consultation) Changes from previous H/P or p: No Changes Objective Vitals Vital Signs Date Time Temp Pulse Resp B/P (MAP) Pulse Ox O2 Delivery O2 Flow Rate FiO2 01/14/25 04:52 72 17 116/81 (93) 100 01/13/25 22:38 Nasal Cannula 2.0 01/13/25 22:38 28 01/13/25 17:00 97.9 97.9 Intake/Output Intake and Output 01/14/25 07:00 Intake Total 1050 ml Balance 1050 ml Intake Oral 700 ml IV Total 350 ml # Voids 7 # Bowel Movements 1 General Appearance: Alert, mild distress, Other (With mittens; confused; only oriented to person sometimes) HEENT: Atraumatic Lungs: Clear to auscultation, Normal air movement Cardiovascular: Regular rate, Normal S1, Normal S2 Abdomen: Normal bowel sounds, Soft, Other (Tender periumbilical hernia; unable to reduce manually) Neuro: Normal speech, Cranial nerves 3-12 NL, Other (Confused; only oriented to person sometimes) Psych/Mental Status: Other (Confused) Medications Current Medications Medications Dose Ordered Sig/Edward Route Start Time Stop Time Status Last Admin Dose Admin Ceftriaxone Sodium 50 ml @ 100 mls/hr DAILY@09 IV 01/06/25 09:00 01/13/25 09:19 100 MLS/HR Acetaminophen/ Hydrocodone Bitart 1 tab Q4HP PRN PO 01/05/25 21:45 01/13/25 14:35 1 TAB Ondansetron HCl 4 mg Q4HP PRN IV 01/05/25 21:45 01/12/25 14:18 4 MG Docusate Sodium 100 mg BIDPRN PRN PO 01/05/25 21:45 Acetaminophen 650 mg Q6HP PRN PO 01/05/25 21:45 01/11/25 10:17 650 MG Nitroglycerin 0.4 mg Q5MINP PRN SL 01/05/25 22:00 Morphine Sulfate 2 mg Q30M PRN IV 01/05/25 22:00 01/12/25 14:21 2 MG Pravastatin Sodium 40 mg HS PO 01/06/25 22:00 01/13/25 22:09 40 MG Sodium Chloride 1,000 ml @ 100 mls/hr Q10H IV 01/06/25 14:15 01/13/25 00:25 100 MLS/HR Quetiapine Fumarate 50 mg HS PO 01/06/25 22:00 01/13/25 22:09 50 MG Olanzapine 2.5 mg BID PO 01/06/25 22:00 01/14/25 09:00 2.5 MG Enoxaparin Sodium 30 mg DAILY SC 01/07/25 10:00 01/14/25 09:02 30 MG Pantoprazole Sodium 40 mg DAILY@0600 PO 01/07/25 06:00 01/14/25 05:15 40 MG Albuterol 2.5 mg Q6HPRN PRN NEB 01/07/25 20:15 01/13/25 22:38 2.5 MG Ipratropium [place] 0.5 mg Q6HPRN PRN NEB 01/07/25 20:30 01/13/25 22:38 0.5 MG Diphenhydramine HCl 25 mg Q4HPRN PRN PO 01/08/25 09:45 01/13/25 14:35 25 MG Hydroxyzine Pamoate 25 mg Q6HP PRN PO 01/10/25 11:30 01/13/25 16:19 25 MG Lorazepam 1 mg Q8HP PRN PO 01/11/25 15:20 01/14/25 03:56 1 MG Clopidogrel Bisulfate 75 mg DAILY PO 01/14/25 10:00 01/14/25 09:01 75 MG Metoprolol Succinate 25 mg DAILY PO 01/13/25 10:00 01/13/25 09:58 25 MG Aspirin 81 mg DAILY PO 01/13/25 10:00 01/14/25 09:01 81 MG Atorvastatin Calcium 80 mg HS PO 01/12/25 22:00 01/13/25 22:09 80 MG Sacubitril/ Valsartan 1 tab BID PO 01/14/25 22:00 Empaglifozin 10 mg DAILY PO 01/14/25 10:00 01/14/25 09:01 10 MG Spironolactone 25 mg DAILY PO 01/14/25 10:00 01/14/25 09:01 25 MG Laboratory Results Laboratory Tests 01/13/25 12:19 Chemistry Test 01/13/25 12:19 Calcium Level 8.6 mg/dL (8.7-10.4) L Urinalysis Test 01/05/25 15:55 01/06/25 17:39 Urine Hyaline Casts Few /lpf (0 - 2) Urine Color Light-yellow (Yellow) Urine Clarity Clear (Clear) Urine pH 6.5 (5.0-9.0) Urine Specific [place] 1.016 (1.001-1.035) Urine Protein Negative (Negative) Urine Ketones Trace (Negative) Urine Blood Negative /uL (Negative) Urine Nitrite Negative (Negative) Urine Bilirubin Negative (Negative) Urine Urobilinogen Normal mg/dL (Negative) Urine Leukocyte Esterase Negative /uL (Negative) Urine RBC 1 /hpf (0 - 4) Urine Microscopic WBC 5 /HPF (0-5) Urine Squamous Epithelial Cells None seen /hpf (<5) Urine Bacteria None seen /hpf (None Seen) Urine Glucose Normal mg/dL (Normal) Microbiology Microbiology Date/Time Source Procedure Growth Status 01/05/25 15:55 Voided Urine Urine Culture - Final Complete Labs and/or images reviewed: Labs reviewed by me, Image(s) reviewed by me Assessment/Plan Assessment/Plan Covering for Dr.Al Sellers Abdominal pain in the setting of complex periumbilical hernia; to rule out strangulation, surgical consult by Dr. Tabitha Fields appreciated, Surgeon Dr. Tabitha Fields planning for hernia repair, cardiac clearance requested from Dr. 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 Zoila Arzola ejection fraction 30 percent, possible candidate for AICD if no improvement in three months , cardiology advised that the patient is not a candidate for any elective surgery at this time Acute toxic/metabolic encephalopathy in the setting of Alzheimer's dementia due to sepsis Sepsis due to suspected aspiration pneumonia suspected complicated UTI, continue Rocephin Alzheimer's dementia with behavioral changes Moderate to severe compression deformity of T12 Hypertensive heart disease without heart failure Normocytic hypochromic anemia Hyponatremia Dyslipidemia Obesity Generalized itching: Atarax Altered mental status: Blood cultures urine cultures CBC CMP Time spent 50 minutes Advanced care planning time 20 minutes Patient is DNR Came from [facility] Plan discussed with: Patient Date of Service: Jan 14, 2025 Billing Provider: WESLEY YADAV MD Common Visit Codes: [id number] INP/OBS CARE(HIGH) WESLEY YADAV MD Jan 14, 2025 09:29
[2025-01-14 11:02] LABS: Alanine Aminotransferase 14 U/L (7-40); Albumin 3.8 g/dL (3.2-4.8); Alkaline Phosphatase 104 U/L (46-116); Anion Gap 9 (5-15); BUN/Creatinine Ratio 15.6 (10.0-20.0); Carbon Dioxide 26 mmol/L (20-31); Chloride 100 mmol/L (98-107); Potassium 4.3 mmol/L (3.5-5.1); Total Protein 6.3 g/dL (5.7-8.2)
[2025-01-14 11:03] LABS: Bilirubin, Total 0.4 mg/dL (0.2-1.0); Blood Urea Nitrogen 7 mg/dL (9-23); Calcium 8.7 mg/dL (8.7-10.4); Glucose 127 mg/dL (74-106); Sodium 135 mmol/L (136-145)
[2025-01-14 11:54] LABS: Hematocrit 32.0 % (36.0-46.0); Hemoglobin 10.2 g/dL (12.2-16.2); Mean Corpuscular Hemoglobin 26.1 pg (28.0-32.0); Mean Corpuscular Volume 81.5 fL (80.0-100.0); Nucleated Red Blood Cells % 0.0 %
--- NOTE | 2025-01-14 21:04 | DVHPN2 ---
Progress Note - Dictate Date Seen: Jan 14, 2025 Medical Necessity Reason Pt with a Central, PICC or Fol: Yes The following are medically ne: Waters Catheter Reason for waters catheter: Bladder Retention/Obstruc Subjective Patient was seen and evaluated in follow up. Patient is on 2 LPM NC.Patient alert to self, mittens in place for safety. Has abdominal tenderness. New urine culture pending. Telemetry reviewed. vital signs Vital Sign Date Time Temp Pulse Resp B/P (MAP) Pulse Ox O2 Delivery O2 Flow Rate FiO2 01/14/25 17:16 98.7 103 16 148/69 (95) 98 98.7 01/14/25 14:30 Nasal Cannula 2.0 01/14/25 14:30 28 Total Intake and Output 01/13/25 01/13/25 01/14/25 15:00 23:00 07:00 Intake Total 50 ml 850 ml 150 ml Balance 50 ml 850 ml 150 ml medications Current Medications Medications Dose Ordered Sig/Edward Route Start Time Stop Time Status Last Admin Dose Admin Ceftriaxone Sodium 50 ml @ 100 mls/hr DAILY@09 IV 01/06/25 09:00 01/14/25 13:01 100 MLS/HR Acetaminophen/ Hydrocodone Bitart 1 tab Q4HP PRN PO 01/05/25 21:45 01/13/25 14:35 1 TAB Ondansetron HCl 4 mg Q4HP PRN IV 01/05/25 21:45 01/12/25 14:18 4 MG Docusate Sodium 100 mg BIDPRN PRN PO 01/05/25 21:45 Acetaminophen 650 mg Q6HP PRN PO 01/05/25 21:45 01/11/25 10:17 650 MG Nitroglycerin 0.4 mg Q5MINP PRN SL 01/05/25 22:00 Morphine Sulfate 2 mg Q30M PRN IV 01/05/25 22:00 01/12/25 14:21 2 MG Pravastatin Sodium 40 mg HS PO 01/06/25 22:00 01/13/25 22:09 40 MG Sodium Chloride 1,000 ml @ 100 mls/hr Q10H IV 01/06/25 14:15 01/14/25 13:01 100 MLS/HR Quetiapine Fumarate 50 mg HS PO 01/06/25 22:00 01/13/25 22:09 50 MG Olanzapine 2.5 mg BID PO 01/06/25 22:00 01/14/25 09:00 2.5 MG Enoxaparin Sodium 30 mg DAILY SC 01/07/25 10:00 01/14/25 09:02 30 MG Pantoprazole Sodium 40 mg DAILY@0600 PO 01/07/25 06:00 01/14/25 05:15 40 MG Albuterol 2.5 mg Q6HPRN PRN NEB 01/07/25 20:15 01/13/25 22:38 2.5 MG Ipratropium [place] 0.5 mg Q6HPRN PRN NEB 01/07/25 20:30 01/13/25 22:38 0.5 MG Diphenhydramine HCl 25 mg Q4HPRN PRN PO 01/08/25 09:45 01/13/25 14:35 25 MG Hydroxyzine Pamoate 25 mg Q6HP PRN PO 01/10/25 11:30 01/13/25 16:19 25 MG Lorazepam 1 mg Q8HP PRN PO 01/11/25 15:20 01/14/25 15:27 1 MG Clopidogrel Bisulfate 75 mg DAILY PO 01/14/25 10:00 01/14/25 09:01 75 MG Metoprolol Succinate 25 mg DAILY PO 01/13/25 10:00 01/14/25 10:19 25 MG Aspirin 81 mg DAILY PO 01/13/25 10:00 01/14/25 09:01 81 MG Atorvastatin Calcium 80 mg HS PO 01/12/25 22:00 01/13/25 22:09 80 MG Sacubitril/ Valsartan 1 tab BID PO 01/14/25 22:00 Empaglifozin 10 mg DAILY PO 01/14/25 10:00 01/14/25 09:01 10 MG Spironolactone 25 mg DAILY PO 01/14/25 10:00 01/14/25 09:01 25 MG objective GENERAL: A&O x2. EYES: PERRL, EOMI. Anicteric. HENT: Moist mucous membranes. LUNGS: Clear to auscultation bilaterally. CARDIOVASCULAR: Regular rate and rhythm. ABDOMEN: Soft, non-tender and non-distended. EXTREMITIES: No edema. SKIN: Warm, dry. laboratory and microbiology Laboratory Tests 01/14/25 10:25 Test 01/14/25 10:25 Range/Units Serum Glucose 127 H 74-106 mg/dL Problem List Evolved anterior wall myocardial infarction. Ischemic cardiomyopathy with LVEF of 30%. Chronic compensated HFrEF. Hypertension. Dyslipidemia. History of CVA. Obesity. Assessment/Plan Continued all current supportive medical care. The patient is not a candidate for elective surgical interventions at this time. Follow-up with a primary manager automotive within 1-2 weeks post-discharge. Transthoracic echocardiogram reveals an EF of 30% with entire anterior, apical wall, and distal two thirds of IVS remarkably hypokinetic. Patient is to repeat a transthoracic echocardiogram within three months for re- evaluation of left ventricular function. If no improvement, she may be a candidate for an ICD. Morphine and [place] for pain. Aspirin, Metoprolol, Lipitor, Plavix. IV antibiotics as ordered. DVT and GI prophylactics. Additional plan as per the hospital course. Dietary Evaluation Review Comments: 1) Initiate Glucerna bid 2) Encourage optimal PO intake 3) Follow-up with cardiology, pulmonology and neurology 4) Continue to monitor I&O, labs, and skin integrity Expected Outcomes/Goals: 1) appetite and labs to improve 2) f/u in 3-5 days Plan discussed with: IVÁN Krishnan MD Jan 14, 2025 21:04
[2025-01-14] MEDS: SACUBITRIL-VALSARTAN 24mg/26mg TAB PO SCH (21:42)
[2025-01-15] VITALS (11 sets, daily range): BP systolic 96–148; BP diastolic 54–85; PULSE 45–103; RESP 16–19; TEMP 97.8–98.2; O2SAT 94–100
--- NOTE | 2025-01-15 11:02 | DVHPN2 ---
Reviewed: Care Plan, H&P, Labs, Medications, Previous Orders, Radiology, Other (Consultation) Changes from previous H/P or p: No Changes Objective Vitals Vital Signs Date Time Temp Pulse Resp B/P (MAP) Pulse Ox O2 Delivery O2 Flow Rate FiO2 01/15/25 09:59 100 144/81 01/15/25 09:00 98.2 16 100 98.2 01/15/25 07:35 Nasal Cannula* 2 28 Intake/Output Intake and Output 01/15/25 07:00 Intake Total 1150 ml Output Total 1000 ml Balance 150 ml Intake Oral 600 ml IV Total 550 ml Output Urine Total 1000 ml # Voids 8 General Appearance: Alert, mild distress, Other (With mittens; confused; only oriented to person sometimes) HEENT: Atraumatic Lungs: Clear to auscultation, Normal air movement Cardiovascular: Regular rate, Normal S1, Normal S2 Abdomen: Normal bowel sounds, Soft, Other (Tender periumbilical hernia; unable to reduce manually) Neuro: Normal speech, Cranial nerves 3-12 NL, Other (Confused; only oriented to person sometimes) Psych/Mental Status: Other (Confused) Medications Current Medications Medications Dose Ordered Sig/Edward Route Start Time Stop Time Status Last Admin Dose Admin Ceftriaxone Sodium 50 ml @ 100 mls/hr DAILY@09 IV 01/06/25 09:00 01/15/25 09:57 100 MLS/HR Ondansetron HCl 4 mg Q4HP PRN IV 01/05/25 21:45 01/12/25 14:18 4 MG Docusate Sodium 100 mg BIDPRN PRN PO 01/05/25 21:45 Acetaminophen 650 mg Q6HP PRN PO 01/05/25 21:45 01/11/25 10:17 650 MG Nitroglycerin 0.4 mg Q5MINP PRN SL 01/05/25 22:00 Pravastatin Sodium 40 mg HS PO 01/06/25 22:00 01/14/25 21:41 40 MG Sodium Chloride 1,000 ml @ 100 mls/hr Q10H IV 01/06/25 14:15 01/14/25 13:01 100 MLS/HR Quetiapine Fumarate 50 mg HS PO 01/06/25 22:00 01/14/25 21:42 50 MG Olanzapine 2.5 mg BID PO 01/06/25 22:00 01/15/25 09:58 2.5 MG Enoxaparin Sodium 30 mg DAILY SC 01/07/25 10:00 01/14/25 09:02 30 MG Pantoprazole Sodium 40 mg DAILY@0600 PO 01/07/25 06:00 01/15/25 05:17 40 MG Albuterol 2.5 mg Q6HPRN PRN NEB 01/07/25 20:15 01/13/25 22:38 2.5 MG Ipratropium [place] 0.5 mg Q6HPRN PRN NEB 01/07/25 20:30 01/13/25 22:38 0.5 MG Diphenhydramine HCl 25 mg Q4HPRN PRN PO 01/08/25 09:45 01/15/25 05:52 25 MG Hydroxyzine [place] 25 mg Q6HP PRN PO 01/10/25 11:30 01/13/25 16:19 25 MG Lorazepam 1 mg Q8HP PRN PO 01/11/25 15:20 01/14/25 15:27 1 MG Clopidogrel Bisulfate 75 mg DAILY PO 01/14/25 10:00 01/15/25 09:59 75 MG Metoprolol Succinate 25 mg DAILY PO 01/13/25 10:00 01/15/25 09:59 25 MG Aspirin 81 mg DAILY PO 01/13/25 10:00 01/15/25 09:59 81 MG Atorvastatin Calcium 80 mg HS PO 01/12/25 22:00 01/14/25 21:42 80 MG Sacubitril/ Valsartan 1 tab BID PO 01/14/25 22:00 01/15/25 09:58 1 TAB Empaglifozin 10 mg DAILY PO 01/14/25 10:00 01/15/25 09:58 10 MG Spironolactone 25 mg DAILY PO 01/14/25 10:00 01/15/25 09:58 25 MG Laboratory Results Laboratory Tests 01/14/25 10:25 Urinalysis Test 01/05/25 15:55 01/06/25 17:39 Urine Hyaline Casts Few /lpf (0 - 2) Urine Color Light-yellow (Yellow) Urine Clarity Clear (Clear) Urine pH 6.5 (5.0-9.0) Urine Specific [place] 1.016 (1.001-1.035) Urine Protein Negative (Negative) Urine Ketones Trace (Negative) Urine Blood Negative /uL (Negative) Urine Nitrite Negative (Negative) Urine Bilirubin Negative (Negative) Urine Urobilinogen Normal mg/dL (Negative) Urine Leukocyte Esterase Negative /uL (Negative) Urine RBC 1 /hpf (0 - 4) Urine Microscopic WBC 5 /HPF (0-5) Urine Squamous Epithelial Cells None seen /hpf (<5) Urine Bacteria None seen /hpf (None Seen) Urine Glucose Normal mg/dL (Normal) Microbiology Microbiology Date/Time Source Procedure Growth Status 01/14/25 10:25 Blood Blood Culture - Preliminary NO GROWTH AFTER 24 HOURS OF INCUBATION. Resulted 01/05/25 15:55 Voided Urine Urine Culture - Final Complete Assessment/Plan Assessment/Plan Covering for Dr.Al Sellers Abdominal pain in the setting of complex periumbilical hernia; to rule out strangulation, surgical consult by Dr. Tabitha Fields appreciated, Surgeon Dr. Tabitha Fields planning for hernia repair, cardiac clearance requested from Dr. 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 Zoila Arzola ejection fraction 30 percent, possible candidate for AICD if no improvement in three months , cardiology advised that the patient is not a candidate for any elective surgery at this time Acute toxic/metabolic encephalopathy in the setting of Alzheimer's dementia due to sepsis Sepsis due to suspected aspiration pneumonia suspected complicated UTI, continue Rocephin Alzheimer's dementia with behavioral changes Moderate to severe compression deformity of T12 Hypertensive heart disease without heart failure Normocytic hypochromic anemia Hyponatremia Dyslipidemia Obesity Generalized itching: Atarax Altered mental status: Blood cultures urine cultures CBC CMP Time spent 50 minutes Advanced care planning time 20 minutes Patient is DNR Came from [facility] Excessive sleepiness: DC Benadryl, Vistaril, Ativan Plan discussed with: Patient My Orders Orders - WESLEY YADAV MD Procedure Category Date Status Time Straight Cath Patient ORDERS 01/14/25 Transmitted 09:20 Date of Service: Jan 15, 2025 Billing Provider: WESLEY YADAV MD Common Visit Codes: [id number] INP/OBS CARE(HIGH) WESLEY YADAV MD Jan 15, 2025 11:01
--- NOTE | 2025-01-15 21:02 | DVHPN2 ---
Progress Note - Dictate Date Seen: Jan 15, 2025 Medical Necessity Reason Pt with a Central, PICC or Fol: Yes The following are medically ne: Waters Catheter Reason for waters catheter: Bladder Retention/Obstruc Subjective Patient was seen and evaluated in follow up. Patient is on 2 LPM NC. Patietn remains confused. Prelim urine culture is negative for growth. Telemetry reviewed. vital signs Vital Sign Date Time Temp Pulse Resp B/P (MAP) Pulse Ox O2 Delivery O2 Flow Rate FiO2 01/15/25 19:35 98 Nasal Cannula 2.0 01/15/25 19:35 28 01/15/25 17:00 98.2 92 17 118/64 (82) 98.2 Total Intake and Output 01/14/25 01/14/25 01/15/25 15:00 23:00 07:00 Intake Total 50 ml 900 ml 200 ml Output Total 1000 ml Balance 50 ml -100 ml 200 ml medications Current Medications Medications Dose Ordered Sig/Edward Route Start Time Stop Time Status Last Admin Dose Admin Ceftriaxone Sodium 50 ml @ 100 mls/hr DAILY@09 IV 01/06/25 09:00 01/15/25 09:57 100 MLS/HR Ondansetron HCl 4 mg Q4HP PRN IV 01/05/25 21:45 01/12/25 14:18 4 MG Docusate Sodium 100 mg BIDPRN PRN PO 01/05/25 21:45 Acetaminophen 650 mg Q6HP PRN PO 01/05/25 21:45 01/15/25 18:18 650 MG Nitroglycerin 0.4 mg Q5MINP PRN SL 01/05/25 22:00 Pravastatin Sodium 40 mg HS PO 01/06/25 22:00 01/14/25 21:41 40 MG Quetiapine Fumarate 50 mg HS PO 01/06/25 22:00 01/14/25 21:42 50 MG Olanzapine 2.5 mg BID PO 01/06/25 22:00 01/15/25 09:58 2.5 MG Enoxaparin Sodium 30 mg DAILY SC 01/07/25 10:00 01/14/25 09:02 30 MG Pantoprazole Sodium 40 mg DAILY@0600 PO 01/07/25 06:00 01/15/25 05:17 40 MG Albuterol 2.5 mg Q6HPRN PRN NEB 01/07/25 20:15 01/13/25 22:38 2.5 MG Ipratropium [place] 0.5 mg Q6HPRN PRN NEB 01/07/25 20:30 01/13/25 22:38 0.5 MG Clopidogrel Bisulfate 75 mg DAILY PO 01/14/25 10:00 01/15/25 09:59 75 MG Metoprolol Succinate 25 mg DAILY PO 01/13/25 10:00 01/15/25 09:59 25 MG Aspirin 81 mg DAILY PO 01/13/25 10:00 01/15/25 09:59 81 MG Atorvastatin Calcium 80 mg HS PO 01/12/25 22:00 01/14/25 21:42 80 MG Sacubitril/ Valsartan 1 tab BID PO 01/14/25 22:00 01/15/25 09:58 1 TAB Empaglifozin 10 mg DAILY PO 01/14/25 10:00 01/15/25 09:58 10 MG Spironolactone 25 mg DAILY PO 01/14/25 10:00 01/15/25 09:58 25 MG objective GENERAL: A&O x2. EYES: PERRL, EOMI. Anicteric. HENT: Moist mucous membranes. LUNGS: Clear to auscultation bilaterally. CARDIOVASCULAR: Regular rate and rhythm. ABDOMEN: Soft, non-tender and non-distended. EXTREMITIES: No edema. SKIN: Warm, dry. laboratory and microbiology Laboratory Tests 01/14/25 10:25 Test 01/14/25 10:25 Range/Units Serum Glucose 127 H 74-106 mg/dL Problem List Evolved anterior wall myocardial infarction. Ischemic cardiomyopathy with LVEF of 30%. Chronic compensated HFrEF. Hypertension. Dyslipidemia. History of CVA. Obesity. Assessment/Plan Continued all current supportive medical care. The patient is not a candidate for elective surgical interventions at this time. Follow-up with a primary barrel bung remover and dumper within 1-2 weeks post-discharge. Transthoracic echocardiogram reveals an EF of 30% with entire anterior, apical wall, and distal two thirds of IVS remarkably hypokinetic. Patient is to repeat a transthoracic echocardiogram within three months for re- evaluation of left ventricular function. If no improvement, she may be a candidate for an ICD. Morphine and [place] for pain. Aspirin, Metoprolol, Lipitor, Plavix. IV antibiotics as ordered. DVT and GI prophylactics. Additional plan as per the hospital course. Dietary Evaluation Review Comments: 1) Initiate Glucerna bid 2) Encourage optimal PO intake 3) Follow-up with cardiology, pulmonology and neurology 4) Continue to monitor I&O, labs, and skin integrity Expected Outcomes/Goals: 1) appetite and labs to improve 2) f/u in 3-5 days Plan discussed with: Other IVÁN BRENNAN MD Jan 15, 2025 21:02
[2025-01-16] VITALS (11 sets, daily range): BP systolic 98–112; BP diastolic 58–69; PULSE 63–91; RESP 18–22; TEMP 97.1–98.4; O2SAT 93–98
--- NOTE | 2025-01-16 11:44 | DVHPN2 ---
Reviewed: Care Plan, H&P, Labs, Medications, Previous Orders, Radiology, Other (Consultation) Changes from previous H/P or p: No Changes Objective Vitals Vital Signs Date Time Temp Pulse Resp B/P (MAP) Pulse Ox O2 Delivery O2 Flow Rate FiO2 01/16/25 08:50 77 103/65 01/16/25 08:49 98.0 01/16/25 08:00 18 95 Nasal Cannula* 2 28 Intake/Output Intake and Output 01/16/25 07:00 Intake Total 1790 ml Balance 1790 ml Intake Oral 1740 ml IV Total 50 ml # Voids 11 General Appearance: Alert, mild distress, Other (With mittens; confused; only oriented to person sometimes) HEENT: Atraumatic Lungs: Clear to auscultation, Normal air movement Cardiovascular: Regular rate, Normal S1, Normal S2 Abdomen: Normal bowel sounds, Soft, Other (Tender periumbilical hernia; unable to reduce manually) Neuro: Normal speech, Cranial nerves 3-12 NL, Other (Confused; only oriented to person sometimes) Psych/Mental Status: Other (Confused) Medications Current Medications Medications Dose Ordered Sig/Edward Route Start Time Stop Time Status Last Admin Dose Admin Ceftriaxone Sodium 50 ml @ 100 mls/hr DAILY@09 IV 01/06/25 09:00 01/16/25 08:44 100 MLS/HR Ondansetron HCl 4 mg Q4HP PRN IV 01/05/25 21:45 01/12/25 14:18 4 MG Docusate Sodium 100 mg BIDPRN PRN PO 01/05/25 21:45 Acetaminophen 650 mg Q6HP PRN PO 01/05/25 21:45 01/16/25 08:49 650 MG Nitroglycerin 0.4 mg Q5MINP PRN SL 01/05/25 22:00 Pravastatin Sodium 40 mg HS PO 01/06/25 22:00 01/15/25 21:59 40 MG Quetiapine Fumarate 50 mg HS PO 01/06/25 22:00 01/15/25 21:58 50 MG Olanzapine 2.5 mg BID PO 01/06/25 22:00 01/16/25 08:47 2.5 MG Enoxaparin Sodium 30 mg DAILY SC 01/07/25 10:00 01/16/25 08:52 30 MG Pantoprazole Sodium 40 mg DAILY@0600 PO 01/07/25 06:00 01/16/25 05:50 40 MG Albuterol 2.5 mg Q6HPRN PRN NEB 01/07/25 20:15 01/13/25 22:38 2.5 MG Ipratropium [place] 0.5 mg Q6HPRN PRN NEB 01/07/25 20:30 01/13/25 22:38 0.5 MG Clopidogrel Bisulfate 75 mg DAILY PO 01/14/25 10:00 01/16/25 08:50 75 MG Metoprolol Succinate 25 mg DAILY PO 01/13/25 10:00 01/15/25 09:59 25 MG Aspirin 81 mg DAILY PO 01/13/25 10:00 01/16/25 08:45 81 MG Atorvastatin Calcium 80 mg HS PO 01/12/25 22:00 01/15/25 21:58 80 MG Sacubitril/ Valsartan 1 tab BID PO 01/14/25 22:00 01/15/25 21:58 1 TAB Empaglifozin 10 mg DAILY PO 01/14/25 10:00 01/16/25 08:46 10 MG Spironolactone 25 mg DAILY PO 01/14/25 10:00 01/16/25 08:46 25 MG Laboratory Results Laboratory Tests 01/14/25 10:25 Urinalysis Test 01/05/25 15:55 01/06/25 17:39 Urine Hyaline Casts Few /lpf (0 - 2) Urine Color Light-yellow (Yellow) Urine Clarity Clear (Clear) Urine pH 6.5 (5.0-9.0) Urine Specific [place] 1.016 (1.001-1.035) Urine Protein Negative (Negative) Urine Ketones Trace (Negative) Urine Blood Negative /uL (Negative) Urine Nitrite Negative (Negative) Urine Bilirubin Negative (Negative) Urine Urobilinogen Normal mg/dL (Negative) Urine Leukocyte Esterase Negative /uL (Negative) Urine RBC 1 /hpf (0 - 4) Urine Microscopic WBC 5 /HPF (0-5) Urine Squamous Epithelial Cells None seen /hpf (<5) Urine Bacteria None seen /hpf (None Seen) Urine Glucose Normal mg/dL (Normal) Microbiology Microbiology Date/Time Source Procedure Growth Status 01/14/25 16:02 Voided Urine Urine Culture - Preliminary Resulted 01/14/25 10:25 Blood Blood Culture - Preliminary NO GROWTH AFTER 48 HOURS OF INCUBATION. Resulted Labs and/or images reviewed: Labs reviewed by me, Image(s) reviewed by me Assessment/Plan Assessment/Plan Covering for Dr.Al Sellers Abdominal pain in the setting of complex periumbilical hernia; to rule out strangulation, surgical consult by Dr. Tabitha Fields appreciated, Surgeon Dr. Tabitha Fields planning for hernia repair, cardiac clearance requested from Dr. 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 Zoila Arzola ejection fraction 30 percent, possible candidate for AICD if no improvement in three months , cardiology advised that the patient is not a candidate for any elective surgery at this time Acute toxic/metabolic encephalopathy in the setting of Alzheimer's dementia due to sepsis Sepsis due to suspected aspiration pneumonia suspected complicated UTI, continue Rocephin Alzheimer's dementia with behavioral changes Moderate to severe compression deformity of T12 Hypertensive heart disease without heart failure Normocytic hypochromic anemia Hyponatremia Dyslipidemia Obesity Generalized itching: Atarax Altered mental status: Blood cultures urine cultures CBC CMP Time spent 50 minutes Advanced care planning time 20 minutes Patient is DNR Came from [facility] Left message for Son and POA [phone] to call back Other 3 sons at bedside Plan discussed with: Patient Date of Service: Jan 16, 2025 Billing Provider: WESLEY YADAV MD Common Visit Codes: [id number] INP/OBS CARE(HIGH) WESLEY YADAV MD Jan 16, 2025 11:44
[2025-01-16] MEDS: LORazepam 2MG/ML-1ML VIAL IV PRN (22:18)
--- NOTE | 2025-01-16 23:29 | DVHPN2 ---
Progress Note - Dictate Date Seen: Jan 16, 2025 Medical Necessity Reason Pt with a Central, PICC or Fol: Yes The following are medically ne: Waters Catheter Reason for waters catheter: Bladder Retention/Obstruc Subjective Patient was seen and evaluated in follow up. No overnight events. Patient is now on room air. Patient was agitated/aggressive earlier today. Telemetry reviewed. vital signs Vital Sign Date Time Temp Pulse Resp B/P (MAP) Pulse Ox O2 Delivery O2 Flow Rate FiO2 01/16/25 21:00 98.0 89 22 110/68 (82) 97 98.0 01/16/25 20:40 0.0 21 01/16/25 19:41 Room Air Total Intake and Output 01/15/25 01/15/25 01/16/25 15:00 23:00 07:00 Intake Total 50 ml 600 ml 1140 ml Balance 50 ml 600 ml 1140 ml medications Current Medications Medications Dose Ordered Sig/Edward Route Start Time Stop Time Status Last Admin Dose Admin Ceftriaxone Sodium 50 ml @ 100 mls/hr DAILY@09 IV 01/06/25 09:00 01/16/25 08:44 100 MLS/HR Ondansetron HCl 4 mg Q4HP PRN IV 01/05/25 21:45 01/12/25 14:18 4 MG Docusate Sodium 100 mg BIDPRN PRN PO 01/05/25 21:45 Acetaminophen 650 mg Q6HP PRN PO 01/05/25 21:45 01/16/25 20:51 650 MG Nitroglycerin 0.4 mg Q5MINP PRN SL 01/05/25 22:00 Pravastatin Sodium 40 mg HS PO 01/06/25 22:00 01/16/25 20:50 40 MG Quetiapine Fumarate 50 mg HS PO 01/06/25 22:00 01/16/25 20:50 50 MG Olanzapine 2.5 mg BID PO 01/06/25 22:00 01/16/25 20:51 2.5 MG Enoxaparin Sodium 30 mg DAILY SC 01/07/25 10:00 01/16/25 08:52 30 MG Pantoprazole Sodium 40 mg DAILY@0600 PO 01/07/25 06:00 01/16/25 05:50 40 MG Albuterol 2.5 mg Q6HPRN PRN NEB 01/07/25 20:15 01/13/25 22:38 2.5 MG Ipratropium [place] 0.5 mg Q6HPRN PRN NEB 01/07/25 20:30 01/13/25 22:38 0.5 MG Clopidogrel Bisulfate 75 mg DAILY PO 01/14/25 10:00 01/16/25 08:50 75 MG Metoprolol Succinate 25 mg DAILY PO 01/13/25 10:00 01/15/25 09:59 25 MG Aspirin 81 mg DAILY PO 01/13/25 10:00 01/16/25 08:45 81 MG Atorvastatin Calcium 80 mg HS PO 01/12/25 22:00 01/16/25 20:50 80 MG Sacubitril/ Valsartan 1 tab BID PO 01/14/25 22:00 01/16/25 20:50 1 TAB Empaglifozin 10 mg DAILY PO 01/14/25 10:00 01/16/25 08:46 10 MG Spironolactone 25 mg DAILY PO 01/14/25 10:00 01/16/25 08:46 25 MG Lorazepam 1 mg Q8HP PRN IV 01/16/25 16:45 01/16/25 22:18 1 MG objective GENERAL: A&O x2. EYES: PERRL, EOMI. Anicteric. HENT: Moist mucous membranes. LUNGS: Clear to auscultation bilaterally. CARDIOVASCULAR: Regular rate and rhythm. ABDOMEN: Soft, non-tender and non-distended. EXTREMITIES: No edema. SKIN: Warm, dry. laboratory and microbiology Laboratory Tests 01/14/25 10:25 Test 01/14/25 10:25 Range/Units Serum Glucose 127 H 74-106 mg/dL Problem List Evolved anterior wall myocardial infarction. Ischemic cardiomyopathy with LVEF of 30%. Chronic compensated HFrEF. Hypertension. Dyslipidemia. History of CVA. Obesity. Assessment/Plan Continued all current supportive medical care. The patient is not a candidate for elective surgical interventions at this time. Follow-up with a primary hr systems analyst within 1-2 weeks post-discharge. Transthoracic echocardiogram reveals an EF of 30% with entire anterior, apical wall, and distal two thirds of IVS remarkably hypokinetic. Patient is to repeat a transthoracic echocardiogram within three months for re- evaluation of left ventricular function. If no improvement, she may be a candidate for an ICD. Morphine and [place] for pain. Aspirin, Metoprolol, Lipitor, Plavix. IV antibiotics as ordered. DVT and GI prophylactics. Additional plan as per the hospital course. Dietary Evaluation Review Comments: 1) Initiate Glucerna bid 2) Encourage optimal PO intake 3) Follow-up with cardiology, pulmonology and neurology 4) Continue to monitor I&O, labs, and skin integrity Expected Outcomes/Goals: 1) appetite and labs to improve 2) f/u in 3-5 days Plan discussed with: Patient IVÁN BRENNAN MD Jan 16, 2025 23:29
[2025-01-17] VITALS (8 sets, daily range): BP systolic 99–142; BP diastolic 71–84; PULSE 68–91; RESP 16–20; TEMP 97.4–98.1; O2SAT 94–98
--- NOTE | 2025-01-17 10:12 | DVHPN2 ---
Reviewed: Care Plan, H&P, Labs, Medications, Previous Orders, Radiology, Other (Consultation) Changes from previous H/P or p: No Changes Objective Vitals Vital Signs Date Time Temp Pulse Resp B/P (MAP) Pulse Ox O2 Delivery O2 Flow Rate FiO2 01/17/25 06:13 98.1 01/16/25 21:00 89 22 110/68 (82) 97 01/16/25 20:40 0.0 21 01/16/25 20:00 Room Air* Intake/Output Intake and Output 01/17/25 07:00 Intake Total 1230 ml Balance 1230 ml Intake Oral 1180 ml IV Total 50 ml # Voids 6 # Bowel Movements 1 General Appearance: Alert, mild distress, Other (With mittens; confused; only oriented to person sometimes) HEENT: Atraumatic Lungs: Clear to auscultation, Normal air movement Cardiovascular: Regular rate, Normal S1, Normal S2 Abdomen: Normal bowel sounds, Soft, Other (Tender periumbilical hernia; unable to reduce manually) Neuro: Normal speech, Cranial nerves 3-12 NL, Other (Confused; only oriented to person sometimes) Psych/Mental Status: Other (Confused) Medications Current Medications Medications Dose Ordered Sig/Edward Route Start Time Stop Time Status Last Admin Dose Admin Ceftriaxone Sodium 50 ml @ 100 mls/hr DAILY@09 IV 01/06/25 09:00 01/16/25 08:44 100 MLS/HR Ondansetron HCl 4 mg Q4HP PRN IV 01/05/25 21:45 01/12/25 14:18 4 MG Docusate Sodium 100 mg BIDPRN PRN PO 01/05/25 21:45 Acetaminophen 650 mg Q6HP PRN PO 01/05/25 21:45 01/17/25 06:13 650 MG Nitroglycerin 0.4 mg Q5MINP PRN SL 01/05/25 22:00 Pravastatin Sodium 40 mg HS PO 01/06/25 22:00 01/16/25 20:50 40 MG Quetiapine Fumarate 50 mg HS PO 01/06/25 22:00 01/16/25 20:50 50 MG Olanzapine 2.5 mg BID PO 01/06/25 22:00 01/16/25 20:51 2.5 MG Enoxaparin Sodium 30 mg DAILY SC 01/07/25 10:00 01/16/25 08:52 30 MG Pantoprazole Sodium 40 mg DAILY@0600 PO 01/07/25 06:00 01/17/25 06:13 40 MG Albuterol 2.5 mg Q6HPRN PRN NEB 01/07/25 20:15 01/13/25 22:38 2.5 MG Ipratropium [place] 0.5 mg Q6HPRN PRN NEB 01/07/25 20:30 01/13/25 22:38 0.5 MG Clopidogrel Bisulfate 75 mg DAILY PO 01/14/25 10:00 01/16/25 08:50 75 MG Metoprolol Succinate 25 mg DAILY PO 01/13/25 10:00 01/15/25 09:59 25 MG Aspirin 81 mg DAILY PO 01/13/25 10:00 01/16/25 08:45 81 MG Atorvastatin Calcium 80 mg HS PO 01/12/25 22:00 01/16/25 20:50 80 MG Sacubitril/ Valsartan 1 tab BID PO 01/14/25 22:00 01/16/25 20:50 1 TAB Empaglifozin 10 mg DAILY PO 01/14/25 10:00 01/16/25 08:46 10 MG Spironolactone 25 mg DAILY PO 01/14/25 10:00 01/16/25 08:46 25 MG Lorazepam 1 mg Q8HP PRN IV 01/16/25 16:45 01/16/25 22:18 1 MG Laboratory Results Laboratory Tests 01/14/25 10:25 Urinalysis Test 01/05/25 15:55 01/06/25 17:39 Urine Hyaline Casts Few /lpf (0 - 2) Urine Color Light-yellow (Yellow) Urine Clarity Clear (Clear) Urine pH 6.5 (5.0-9.0) Urine Specific [place] 1.016 (1.001-1.035) Urine Protein Negative (Negative) Urine Ketones Trace (Negative) Urine Blood Negative /uL (Negative) Urine Nitrite Negative (Negative) Urine Bilirubin Negative (Negative) Urine Urobilinogen Normal mg/dL (Negative) Urine Leukocyte Esterase Negative /uL (Negative) Urine RBC 1 /hpf (0 - 4) Urine Microscopic WBC 5 /HPF (0-5) Urine Squamous Epithelial Cells None seen /hpf (<5) Urine Bacteria None seen /hpf (None Seen) Urine Glucose Normal mg/dL (Normal) Microbiology Microbiology Date/Time Source Procedure Growth Status 01/14/25 16:02 Voided Urine Urine Culture - Preliminary Resulted 01/14/25 10:25 Blood Blood Culture - Preliminary NO GROWTH AFTER 48 HOURS OF INCUBATION. Resulted Labs and/or images reviewed: Labs reviewed by me, Image(s) reviewed by me Assessment/Plan Assessment/Plan Covering for Dr.Al Sellers Abdominal pain in the setting of complex periumbilical hernia; to rule out strangulation, surgical consult by Dr. Tabitha Fields appreciated, Surgeon Dr. Tabitha Fields planning for hernia repair, cardiac clearance requested from Dr. 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 Zoila Arzola ejection fraction 30 percent, possible candidate for AICD if no improvement in three months , cardiology advised that the patient is not a candidate for any elective surgery at this time Acute toxic/metabolic encephalopathy in the setting of Alzheimer's dementia due to sepsis Sepsis due to suspected aspiration pneumonia suspected complicated UTI, continue Rocephin Alzheimer's dementia with behavioral changes Moderate to severe compression deformity of T12 Hypertensive heart disease without heart failure Normocytic hypochromic anemia Hyponatremia Dyslipidemia Obesity Generalized itching: Atarax Altered mental status: Blood cultures urine cultures CBC CMP Time spent 50 minutes Advanced care planning time 20 minutes Patient is DNR Came from [employer] message for Son and DENISHA Batista [phone] to call back Other 3 sons at bedside Intermittent agitation Ativan IV p.r.n., tele psych consult was placed but the patient's son Lester does not want tele psych consult Plan discussed with: Patient My Orders Orders - WESLEY YADAV MD Procedure Category Date Status Time Lorazepam 2mg/Ml Inj PHA 01/16/25 In Process (Ativan Inj) 16:45 Date of Service: Jan 17, 2025 Billing Provider: WESLEY YADAV MD Common Visit Codes: [id number] INP/OBS CARE(HIGH) WESLEY YADAV MD Jan 17, 2025 10:12
--- NOTE | 2025-01-17 19:05 | DVHINCON2 ---
Date of Service if different f: Jan 17, 2025 Time of Service: 18:55 Consultation ([place]) Labs Laboratory Tests Test 01/05/25 15:55 01/05/25 16:22 01/06/25 08:21 01/06/25 13:20 Urine Hyaline Casts Few /lpf (0 - 2) Lipase 45 U/L (12-53) Hemoglobin A1c 5.5 % A1C (<5.7) Vitamin D 25-Hydroxy 34.4 ng/mL (30.0-100) Thyroid Stimulating Hormone (TSH) 1.46 uIU/mL (0.55-4.78) Ammonia < 10 umol/L (11-32) Test 01/06/25 14:25 01/06/25 17:39 01/07/25 05:15 01/12/25 15:10 Influenza Type A Antigen Negative (Negative) Influenza Type B Antigen Negative (Negative) SARS-CoV-2 Antigen (Rapid) Negative (NEGATIVE) Urine Color Light-yellow (Yellow) Urine Clarity Clear (Clear) Urine pH 6.5 (5.0-9.0) Urine Specific [place] 1.016 (1.001-1.035) Urine Protein Negative (Negative) Urine Ketones Trace (Negative) Urine Blood Negative /uL (Negative) Urine Nitrite Negative (Negative) Urine Bilirubin Negative (Negative) Urine Urobilinogen Normal mg/dL (Negative) Urine Leukocyte Esterase Negative /uL (Negative) Urine RBC 1 /hpf (0 - 4) Urine Microscopic WBC 5 /HPF (0-5) Urine Squamous Epithelial Cells None seen /hpf (<5) Urine Bacteria None seen /hpf (None Seen) Urine Glucose Normal mg/dL (Normal) Iron Level 47 ug/dL (50-170) Total Iron Binding Capacity 331 ug/dL (250-425) Percent Iron Saturation 14.2 % (15-50) Ferritin 13.4 ng/mL (10-291) Prothrombin Time 11.5 sec (9.3-11.8) Prothromb Time International Ratio 1.09 (0.9-1.15) Activated Partial Thromboplast Time 32.0 SEC (24.5-34.5) Troponin I High Sensitivity 681 ng/L (</=34) Test 01/14/25 10:25 White Blood Count 8.2 10^3/uL (4.4-10.8) Red Blood Count 3.92 10^6/uL (4.0-5.20) Hemoglobin 10.2 g/dL (12.2-16.2) Hematocrit 32.0 % (36.0-46.0) Mean Corpuscular Volume 81.5 fL (80.0-100.0) Mean Corpuscular Hemoglobin 26.1 pg (28.0-32.0) Mean Corpuscular Hemoglobin Concent 32.0 g/dL (32.0-36.0) Red Cell Distribution Width 17.3 % (11.8-14.3) Platelet Count 257 10^3/uL (140-450) Mean Platelet Volume 8.3 fL (6.9-10.8) Neutrophils (%) (Auto) 67.7 % (37.0-80.0) Lymphocytes (%) (Auto) 15.9 % (10.0-50.0) Monocytes (%) (Auto) 11.2 % (0.0-12.0) Eosinophils (%) (Auto) 4.8 % (0.0-7.0) Basophils (%) (Auto) 0.4 % (0.0-2.0) Neutrophils # (Auto) 5.5 10 ^3/uL (1.6-8.6) Lymphocytes # (Auto) 1.3 10 ^3/uL (0.4-5.4) Monocytes # (Auto) 0.9 10 ^3/uL (0-1.3) Eosinophils # (Auto) 0.4 10 ^3/uL (0-0.8) Basophils # (Auto) 0 10 ^3/uL (0-0.2) Nucleated Red Blood Cells 0.0 % Sodium Level 135 mmol/L (136-145) Potassium Level 4.3 mmol/L (3.5-5.1) Chloride Level 100 mmol/L (98-107) Carbon Dioxide Level 26 mmol/L (20-31) Anion Gap 9 (5-15) Blood Urea Nitrogen 7 mg/dL (9-23) Creatinine 0.45 mg/dL (0.550-1.02) Glomerular Filtration Rate Calc 96 mL/min (>90) BUN/Creatinine Ratio 15.6 (10.0-20.0) Serum Glucose 127 mg/dL (74-106) Calcium Level 8.7 mg/dL (8.7-10.4) Total Bilirubin 0.4 mg/dL (0.2-1.0) Aspartate Amino Transf (AST/SGOT) 24 U/L (13-40) Alanine Aminotransferase (ALT/SGPT) 14 U/L (7-40) Alkaline Phosphatase 104 U/L (46-116) Total Protein 6.3 g/dL (5.7-8.2) Albumin 3.8 g/dL (3.2-4.8) Microbiology Date/Time Source Procedure Growth Status 01/14/25 16:02 Voided Urine Urine Culture - Final Complete 01/14/25 10:25 Blood Blood Culture - Preliminary NO GROWTH AFTER 72 HOURS OF INCUBATION. Resulted Vitals Vital Signs Date Time Temp Pulse Resp B/P (MAP) Pulse Ox O2 Delivery O2 Flow Rate FiO2 01/17/25 16:49 97.9 72 19 137/77 (97) 97 97.9 01/17/25 10:15 Room Air 0.0 01/17/25 10:15 21 Current medications Current Medications Medications Dose Ordered Sig/Edward Route Start Time Stop Time Status Last Admin Dose Admin Ondansetron HCl 4 mg Q4HP PRN IV 01/05/25 21:45 01/12/25 14:18 4 MG Docusate Sodium 100 mg BIDPRN PRN PO 01/05/25 21:45 Acetaminophen 650 mg Q6HP PRN PO 01/05/25 21:45 01/17/25 06:13 650 MG Nitroglycerin 0.4 mg Q5MINP PRN SL 01/05/25 22:00 Pravastatin Sodium 40 mg HS PO 01/06/25 22:00 01/16/25 20:50 40 MG Quetiapine Fumarate 50 mg HS PO 01/06/25 22:00 01/16/25 20:50 50 MG Olanzapine 2.5 mg BID PO 01/06/25 22:00 01/17/25 10:34 2.5 MG Enoxaparin Sodium 30 mg DAILY SC 01/07/25 10:00 01/17/25 10:34 30 MG Pantoprazole Sodium 40 mg DAILY@0600 PO 01/07/25 06:00 01/17/25 06:13 40 MG Albuterol 2.5 mg Q6HPRN PRN NEB 01/07/25 20:15 01/13/25 22:38 2.5 MG Ipratropium [place] 0.5 mg Q6HPRN PRN NEB 01/07/25 20:30 01/13/25 22:38 0.5 MG Clopidogrel Bisulfate 75 mg DAILY PO 01/14/25 10:00 01/17/25 10:33 75 MG Metoprolol Succinate 25 mg DAILY PO 01/13/25 10:00 01/17/25 10:44 25 MG Aspirin 81 mg DAILY PO 01/13/25 10:00 01/17/25 10:31 81 MG Atorvastatin Calcium 80 mg HS PO 01/12/25 22:00 01/16/25 20:50 80 MG Sacubitril/ Valsartan 1 tab BID PO 01/14/25 22:00 01/17/25 10:32 1 TAB Empaglifozin 10 mg DAILY PO 01/14/25 10:00 01/17/25 10:32 10 MG Spironolactone 25 mg DAILY PO 01/14/25 10:00 01/17/25 10:32 25 MG Lorazepam 1 mg Q8HP PRN IV 01/16/25 16:45 01/16/25 22:18 1 MG PSYCHIATRY CONSULTATION BRIEF NOTE Called RN for information regarding reason for consult. Per RN, pt has dementia. She is intermittently agitated, pulls out lines. Pt has 1:1 sitter and currently being behaviorally managed, which RN reports has been effective. MD not available for additional information at this time. For now, recommendations are as follows, but primary MD should speak to Psychiatrist for further clarity if there is any specific additional questions: RECOMMENDATIONS 1. Legal: Patient does not meet 5150 criteria; dementia alone does not qualify for involuntary hold. 2. Medications: No standing psychotropic medications recommended given increased mortality risk in elderly with dementia and current ability to be redirected. - Consider melatonin at bedtime to support sleepwake cycle. 3. Behavioral/Environmental Interventions - Continue 1:1 sitter for safety and redirection. - Maintain calm, structured environment with low stimulation. - Use clear, simple communication and reassurance. - Provide frequent orientation cues (date, time, location) and write them in clear view for the patient. - Ensure adequate lighting during the day to reduce sundowning. 4. Safety Precautions - Fall precautions: bed in lowest position, bed/chair alarms. - Wandering precautions: secure exits, staff awareness. - Remove potentially dangerous objects from room. 5. Medical Considerations - Monitor for underlying medical contributors to agitation (pain, infection, constipation, urinary retention). - Optimize hydration and nutrition - Consider Neurology consult PAPA KHOURY MD Jan 17, 2025 19:05
--- NOTE | 2025-01-17 23:14 | DVHPN2 ---
Progress Note - Dictate Date Seen: Jan 17, 2025 Medical Necessity Reason Pt with a Central, PICC or Fol: Yes The following are medically ne: Waters Catheter Reason for waters catheter: Bladder Retention/Obstruc Subjective Patient was seen and evaluated in follow up. Patient has intermittent agitation and confusion. Sitter at bedside. Patient evaluated by tele psych, recommended for melatonin at bedtime to support sleepwake cycle. Telemetry reviewed. vital signs Vital Sign Date Time Temp Pulse Resp B/P (MAP) Pulse Ox O2 Delivery O2 Flow Rate FiO2 01/17/25 21:00 97.4 86 20 99/84 (89) 97 97.4 01/17/25 20:38 Room Air 01/17/25 20:38 0 21 Total Intake and Output 01/16/25 01/16/25 01/17/25 15:00 23:00 07:00 Intake Total 50 ml 500 ml 680 ml Balance 50 ml 500 ml 680 ml medications Current Medications Medications Dose Ordered Sig/Edward Route Start Time Stop Time Status Last Admin Dose Admin Ondansetron HCl 4 mg Q4HP PRN IV 01/05/25 21:45 01/12/25 14:18 4 MG Docusate Sodium 100 mg BIDPRN PRN PO 01/05/25 21:45 Acetaminophen 650 mg Q6HP PRN PO 01/05/25 21:45 01/17/25 21:53 650 MG Nitroglycerin 0.4 mg Q5MINP PRN SL 01/05/25 22:00 Pravastatin Sodium 40 mg HS PO 01/06/25 22:00 01/17/25 21:32 40 MG Quetiapine Fumarate 50 mg HS PO 01/06/25 22:00 01/17/25 21:32 50 MG Olanzapine 2.5 mg BID PO 01/06/25 22:00 01/17/25 21:31 2.5 MG Enoxaparin Sodium 30 mg DAILY SC 01/07/25 10:00 01/17/25 10:34 30 MG Pantoprazole Sodium 40 mg DAILY@0600 PO 01/07/25 06:00 01/17/25 06:13 40 MG Albuterol 2.5 mg Q6HPRN PRN NEB 01/07/25 20:15 01/17/25 20:38 2.5 MG Ipratropium [place] 0.5 mg Q6HPRN PRN NEB 01/07/25 20:30 01/17/25 20:38 0.5 MG Clopidogrel Bisulfate 75 mg DAILY PO 01/14/25 10:00 01/17/25 10:33 75 MG Metoprolol Succinate 25 mg DAILY PO 01/13/25 10:00 01/17/25 10:44 25 MG Aspirin 81 mg DAILY PO 01/13/25 10:00 01/17/25 10:31 81 MG Atorvastatin Calcium 80 mg HS PO 01/12/25 22:00 01/17/25 21:32 80 MG Sacubitril/ Valsartan 1 tab BID PO 01/14/25 22:00 01/17/25 21:31 1 TAB Empaglifozin 10 mg DAILY PO 01/14/25 10:00 01/17/25 10:32 10 MG Spironolactone 25 mg DAILY PO 01/14/25 10:00 01/17/25 10:32 25 MG Lorazepam 1 mg Q8HP PRN IV 01/16/25 16:45 01/16/25 22:18 1 MG objective GENERAL: A&O x2. EYES: PERRL, EOMI. Anicteric. HENT: Moist mucous membranes. LUNGS: Clear to auscultation bilaterally. CARDIOVASCULAR: Regular rate and rhythm. ABDOMEN: Soft, non-tender and non-distended. EXTREMITIES: No edema. SKIN: Warm, dry. laboratory and microbiology Laboratory Tests 01/14/25 10:25 Test 01/14/25 10:25 Range/Units Serum Glucose 127 H 74-106 mg/dL Problem List Evolved anterior wall myocardial infarction. Ischemic cardiomyopathy with LVEF of 30%. Chronic compensated HFrEF. Hypertension. Dyslipidemia. History of CVA. Obesity. Assessment/Plan Continued all current supportive medical care. Aspirin, Metoprolol, Lipitor, Plavix. DVT and GI prophylactics. Morphine and Meno for pain. Entresto. Additional plan as per the hospital course. Dietary Evaluation Review Comments: 1) Initiate Glucerna bid 2) Encourage optimal PO intake 3) Follow-up with cardiology, pulmonology and neurology 4) Continue to monitor I&O, labs, and skin integrity Expected Outcomes/Goals: 1) appetite and labs to improve 2) f/u in 3-5 days Plan discussed with: IVÁN Krishnan MD Jan 17, 2025 23:14
[2025-01-18] VITALS (9 sets, daily range): BP systolic 98–128; BP diastolic 54–77; PULSE 64–87; RESP 18–20; TEMP 97.4–97.8; O2SAT 91–100
--- NOTE | 2025-01-18 11:17 | DVHPN2 ---
Reviewed: Care Plan, H&P, Labs, Medications, Previous Orders, Radiology, Other (Consultation) Changes from previous H/P or p: No Changes Objective Vitals Vital Signs Date Time Temp Pulse Resp B/P (MAP) Pulse Ox O2 Delivery O2 Flow Rate FiO2 01/18/25 08:35 97.8 84 18 109/72 (84) 98 97.8 01/18/25 08:00 Room Air* 0 21 Intake/Output Intake and Output 01/18/25 07:00 Intake Total 1000 ml Balance 1000 ml Intake Oral 1000 ml # Voids 8 # Bowel Movements 4 General Appearance: Alert, mild distress, Other (With mittens; confused; only oriented to person sometimes) HEENT: Atraumatic Lungs: Clear to auscultation, Normal air movement Cardiovascular: Regular rate, Normal S1, Normal S2 Abdomen: Normal bowel sounds, Soft, Other (Tender periumbilical hernia; unable to reduce manually) Neuro: Normal speech, Cranial nerves 3-12 NL, Other (Confused; only oriented to person sometimes) Psych/Mental Status: Other (Confused) Medications Current Medications Medications Dose Ordered Sig/Edward Route Start Time Stop Time Status Last Admin Dose Admin Ondansetron HCl 4 mg Q4HP PRN IV 01/05/25 21:45 01/12/25 14:18 4 MG Docusate Sodium 100 mg BIDPRN PRN PO 01/05/25 21:45 Acetaminophen 650 mg Q6HP PRN PO 01/05/25 21:45 01/17/25 21:53 650 MG Nitroglycerin 0.4 mg Q5MINP PRN SL 01/05/25 22:00 Pravastatin Sodium 40 mg HS PO 01/06/25 22:00 01/17/25 21:32 40 MG Quetiapine Fumarate 50 mg HS PO 01/06/25 22:00 01/17/25 21:32 50 MG Olanzapine 2.5 mg BID PO 01/06/25 22:00 01/17/25 21:31 2.5 MG Enoxaparin Sodium 30 mg DAILY SC 01/07/25 10:00 01/17/25 10:34 30 MG Pantoprazole Sodium 40 mg DAILY@0600 PO 01/07/25 06:00 01/18/25 06:22 40 MG Albuterol 2.5 mg Q6HPRN PRN NEB 01/07/25 20:15 01/17/25 20:38 2.5 MG Ipratropium [place] 0.5 mg Q6HPRN PRN NEB 01/07/25 20:30 01/17/25 20:38 0.5 MG Clopidogrel Bisulfate 75 mg DAILY PO 01/14/25 10:00 01/17/25 10:33 75 MG Metoprolol Succinate 25 mg DAILY PO 01/13/25 10:00 01/17/25 10:44 25 MG Aspirin 81 mg DAILY PO 01/13/25 10:00 01/17/25 10:31 81 MG Atorvastatin Calcium 80 mg HS PO 01/12/25 22:00 01/17/25 21:32 80 MG Sacubitril/ Valsartan 1 tab BID PO 01/14/25 22:00 01/17/25 21:31 1 TAB Empaglifozin 10 mg DAILY PO 01/14/25 10:00 01/17/25 10:32 10 MG Spironolactone 25 mg DAILY PO 01/14/25 10:00 01/17/25 10:32 25 MG Lorazepam 1 mg Q8HP PRN IV 01/16/25 16:45 01/18/25 02:52 1 MG Melatonin 5 mg HS PO 01/18/25 22:00 UNV Laboratory Results Laboratory Tests 01/14/25 10:25 Urinalysis Test 01/05/25 15:55 01/06/25 17:39 Urine Hyaline Casts Few /lpf (0 - 2) Urine Color Light-yellow (Yellow) Urine Clarity Clear (Clear) Urine pH 6.5 (5.0-9.0) Urine Specific [place] 1.016 (1.001-1.035) Urine Protein Negative (Negative) Urine Ketones Trace (Negative) Urine Blood Negative /uL (Negative) Urine Nitrite Negative (Negative) Urine Bilirubin Negative (Negative) Urine Urobilinogen Normal mg/dL (Negative) Urine Leukocyte Esterase Negative /uL (Negative) Urine RBC 1 /hpf (0 - 4) Urine Microscopic WBC 5 /HPF (0-5) Urine Squamous Epithelial Cells None seen /hpf (<5) Urine Bacteria None seen /hpf (None Seen) Urine Glucose Normal mg/dL (Normal) Microbiology Microbiology Date/Time Source Procedure Growth Status 01/14/25 16:02 Voided Urine Urine Culture - Final Complete 01/14/25 10:25 Blood Blood Culture - Preliminary NO GROWTH AFTER 72 HOURS OF INCUBATION. Resulted Labs and/or images reviewed: Labs reviewed by me, Image(s) reviewed by me Assessment/Plan Assessment/Plan Covering for Dr.Al Sellers Abdominal pain in the setting of complex periumbilical hernia; to rule out strangulation, surgical consult by Dr. Tabitha Fields appreciated, Surgeon Dr. Tabitha Fields planning for hernia repair, cardiac clearance requested from Dr. 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 Zoila Arzola ejection fraction 30 percent, possible candidate for AICD if no improvement in three months , cardiology advised that the patient is not a candidate for any elective surgery at this time Acute toxic/metabolic encephalopathy in the setting of Alzheimer's dementia due to sepsis Sepsis due to suspected aspiration pneumonia suspected complicated UTI, continue Rocephin Alzheimer's dementia with behavioral changes Moderate to severe compression deformity of T12 Hypertensive heart disease without heart failure Normocytic hypochromic anemia Hyponatremia Dyslipidemia Obesity Generalized itching: Atarax Altered mental status: Blood cultures urine cultures CBC CMP Time spent 50 minutes Advanced care planning time 20 minutes Patient is DNR Came from [employer] message for Son and DENISHA Batista [phone] to call back Other 3 sons at bedside Intermittent agitation Ativan IV p.r.n., tele psych consult by Dr Augustine [place] no 5150 started on melatonin small dose to help sleep-wake cycle Patient is more alert awake cooperative engaging in conversation not combative today. Plan discussed with: Patient My Orders Orders - WESLEY YADAV MD Procedure Category Date Status Time Clostridium Difficile [place] 01/18/25 In Process Toxin 10:25 Melatonin (Melatonin) PHA 01/18/25 Logged 22:00 Date of Service: Jan 18, 2025 Billing Provider: WESLEY YADAV MD Common Visit Codes: [id number] INP/OBS CARE(HIGH) WESLEY YADAV MD Jan 18, 2025 11:17
[2025-01-18] MEDS: MELATONIN 5 MG TAB PO SCH (22:30)
--- NOTE | 2025-01-18 23:38 | DVHPN2 ---
Progress Note - Dictate Date Seen: Jan 18, 2025 Medical Necessity Reason Pt with a Central, PICC or Fol: Yes The following are medically ne: Waters Catheter Reason for waters catheter: Bladder Retention/Obstruc Subjective Patient was seen and evaluated in follow up. No overnight events. Patient is more alert, awake and cooperative today. Patient is engaging in conversation with nursing staff. Telemetry reviewed. vital signs Vital Sign Date Time Temp Pulse Resp B/P (MAP) Pulse Ox O2 Delivery O2 Flow Rate FiO2 01/18/25 13:01 97.5 83 19 103/65 (78) 99 97.5 01/18/25 10:00 Room Air* 0 21 Total Intake and Output 01/17/25 01/17/25 01/18/25 15:00 23:00 07:00 Intake Total 560 ml 440 ml Balance 560 ml 440 ml medications Current Medications Medications Dose Ordered Sig/Edward Route Start Time Stop Time Status Last Admin Dose Admin Ondansetron HCl 4 mg Q4HP PRN IV 01/05/25 21:45 01/12/25 14:18 4 MG Docusate Sodium 100 mg BIDPRN PRN PO 01/05/25 21:45 Acetaminophen 650 mg Q6HP PRN PO 01/05/25 21:45 01/17/25 21:53 650 MG Nitroglycerin 0.4 mg Q5MINP PRN SL 01/05/25 22:00 Pravastatin Sodium 40 mg HS PO 01/06/25 22:00 01/17/25 21:32 40 MG Quetiapine Fumarate 50 mg HS PO 01/06/25 22:00 01/17/25 21:32 50 MG Olanzapine 2.5 mg BID PO 01/06/25 22:00 01/18/25 12:35 2.5 MG Pantoprazole Sodium 40 mg DAILY@0600 PO 01/07/25 06:00 01/18/25 06:22 40 MG Albuterol 2.5 mg Q6HPRN PRN NEB 01/07/25 20:15 01/17/25 20:38 2.5 MG Ipratropium [place] 0.5 mg Q6HPRN PRN NEB 01/07/25 20:30 01/17/25 20:38 0.5 MG Clopidogrel Bisulfate 75 mg DAILY PO 01/14/25 10:00 01/18/25 12:56 75 MG Metoprolol Succinate 25 mg DAILY PO 01/13/25 10:00 01/18/25 12:57 25 MG Aspirin 81 mg DAILY PO 01/13/25 10:00 01/18/25 12:35 81 MG Atorvastatin Calcium 80 mg HS PO 01/12/25 22:00 01/17/25 21:32 80 MG Sacubitril/ Valsartan 1 tab BID PO 01/14/25 22:00 01/18/25 12:34 1 TAB Empaglifozin 10 mg DAILY PO 01/14/25 10:00 01/18/25 12:35 10 MG Spironolactone 25 mg DAILY PO 01/14/25 10:00 01/18/25 12:36 25 MG Lorazepam 1 mg Q8HP PRN IV 01/16/25 16:45 01/18/25 02:52 1 MG Melatonin 5 mg HS PO 01/18/25 22:00 objective GENERAL: A&O x2. EYES: PERRL, EOMI. Anicteric. HENT: Moist mucous membranes. LUNGS: Clear to auscultation bilaterally. CARDIOVASCULAR: Regular rate and rhythm. ABDOMEN: Soft, non-tender and non-distended. EXTREMITIES: No edema. SKIN: Warm, dry. laboratory and microbiology Laboratory Tests 01/14/25 10:25 Test 01/14/25 10:25 Range/Units Serum Glucose 127 H 74-106 mg/dL Problem List Evolved anterior wall myocardial infarction. Ischemic cardiomyopathy with LVEF of 30%. Chronic compensated HFrEF. Hypertension. Dyslipidemia. History of CVA. Obesity. Assessment/Plan Continued all current supportive medical care. Aspirin, Metoprolol,Plavix. GI prophylactics. Entresto. Nitro SL. Additional plan as per the hospital course. Dietary Evaluation Review Comments: 1) Initiate Glucerna bid 2) Encourage optimal PO intake 3) Follow-up with cardiology, pulmonology and neurology 4) Continue to monitor I&O, labs, and skin integrity Expected Outcomes/Goals: 1) appetite and labs to improve 2) f/u in 3-5 days Plan discussed with: Patient IVÁN BRENNAN MD Jan 18, 2025 14:13
[2025-01-19] VITALS (10 sets, daily range): BP systolic 95–144; BP diastolic 57–80; PULSE 66–91; RESP 16–19; TEMP 36.7; O2SAT 96–98
--- NOTE | 2025-01-19 10:12 | DVHPN2 ---
Reviewed: Care Plan, H&P, Labs, Medications, Previous Orders, Radiology, Other (Consultation) Changes from previous H/P or p: No Changes Objective Vitals Vital Signs Date Time Temp Pulse Resp B/P (MAP) Pulse Ox O2 Delivery O2 Flow Rate FiO2 01/19/25 09:31 69 144/78 01/19/25 08:00 Room Air* 0 21 01/19/25 07:35 97 01/19/25 05:00 97.8 19 97.8 Intake/Output Intake and Output 01/19/25 07:00 Intake Total 1170 ml Balance 1170 ml Intake Oral 1170 ml # Voids 6 General Appearance: Alert, mild distress, Other (With mittens; confused; only oriented to person sometimes) HEENT: Atraumatic Lungs: Clear to auscultation, Normal air movement Cardiovascular: Regular rate, Normal S1, Normal S2 Abdomen: Normal bowel sounds, Soft, Other (Tender periumbilical hernia; unable to reduce manually) Neuro: Normal speech, Cranial nerves 3-12 NL, Other (Confused; only oriented to person sometimes) Psych/Mental Status: Other (Confused) Medications Current Medications Medications Dose Ordered Sig/Edward Route Start Time Stop Time Status Last Admin Dose Admin Ondansetron HCl 4 mg Q4HP PRN IV 01/05/25 21:45 01/12/25 14:18 4 MG Docusate Sodium 100 mg BIDPRN PRN PO 01/05/25 21:45 Acetaminophen 650 mg Q6HP PRN PO 01/05/25 21:45 01/18/25 18:16 650 MG Nitroglycerin 0.4 mg Q5MINP PRN SL 01/05/25 22:00 Pravastatin Sodium 40 mg HS PO 01/06/25 22:00 01/18/25 22:31 40 MG Quetiapine Fumarate 50 mg HS PO 01/06/25 22:00 01/18/25 22:30 50 MG Olanzapine 2.5 mg BID PO 01/06/25 22:00 01/19/25 09:33 2.5 MG Pantoprazole Sodium 40 mg DAILY@0600 PO 01/07/25 06:00 01/19/25 06:11 40 MG Albuterol 2.5 mg Q6HPRN PRN NEB 01/07/25 20:15 01/17/25 20:38 2.5 MG Ipratropium [place] 0.5 mg Q6HPRN PRN NEB 01/07/25 20:30 01/17/25 20:38 0.5 MG Clopidogrel Bisulfate 75 mg DAILY PO 01/14/25 10:00 01/19/25 09:33 75 MG Metoprolol Succinate 25 mg DAILY PO 01/13/25 10:00 01/19/25 09:31 25 MG Aspirin 81 mg DAILY PO 01/13/25 10:00 01/19/25 09:34 81 MG Atorvastatin Calcium 80 mg HS PO 01/12/25 22:00 01/18/25 22:30 80 MG Sacubitril/ Valsartan 1 tab BID PO 01/14/25 22:00 01/19/25 09:29 1 TAB Empaglifozin 10 mg DAILY PO 01/14/25 10:00 01/19/25 09:35 10 MG Spironolactone 25 mg DAILY PO 01/14/25 10:00 01/19/25 09:33 25 MG Lorazepam 1 mg Q8HP PRN IV 01/16/25 16:45 01/18/25 02:52 1 MG Melatonin 5 mg HS PO 01/18/25 22:00 01/18/25 22:30 5 MG Laboratory Results Laboratory Tests 01/14/25 10:25 Urinalysis Test 01/05/25 15:55 01/06/25 17:39 Urine Hyaline Casts Few /lpf (0 - 2) Urine Color Light-yellow (Yellow) Urine Clarity Clear (Clear) Urine pH 6.5 (5.0-9.0) Urine Specific [place] 1.016 (1.001-1.035) Urine Protein Negative (Negative) Urine Ketones Trace (Negative) Urine Blood Negative /uL (Negative) Urine Nitrite Negative (Negative) Urine Bilirubin Negative (Negative) Urine Urobilinogen Normal mg/dL (Negative) Urine Leukocyte Esterase Negative /uL (Negative) Urine RBC 1 /hpf (0 - 4) Urine Microscopic WBC 5 /HPF (0-5) Urine Squamous Epithelial Cells None seen /hpf (<5) Urine Bacteria None seen /hpf (None Seen) Urine Glucose Normal mg/dL (Normal) Microbiology Microbiology Date/Time Source Procedure Growth Status 01/18/25 10:35 Stool Clostridium difficile Toxin Assay - Final Complete 01/14/25 16:02 Voided Urine Urine Culture - Final Complete 01/14/25 10:25 Blood Blood Culture - Preliminary NO GROWTH AFTER 72 HOURS OF INCUBATION. Resulted Labs and/or images reviewed: Labs reviewed by me, Image(s) reviewed by me Assessment/Plan Assessment/Plan Covering for Dr.Al Sellers Abdominal pain in the setting of complex periumbilical hernia; to rule out strangulation, surgical consult by Dr. Tabitha Fields appreciated, Surgeon Dr. Tabitha Fields planning for hernia repair, cardiac clearance requested from Dr. 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 Zoila Arzola ejection fraction 30 percent, possible candidate for AICD if no improvement in three months , cardiology advised that the patient is not a candidate for any elective surgery at this time Acute toxic/metabolic encephalopathy in the setting of Alzheimer's dementia due to sepsis Sepsis due to suspected aspiration pneumonia suspected complicated UTI, continue Rocephin Alzheimer's dementia with behavioral changes Moderate to severe compression deformity of T12 Hypertensive heart disease without heart failure Normocytic hypochromic anemia Hyponatremia Dyslipidemia Obesity Generalized itching: Atarax C diff colitis: PO vanco, PO Flagyl Altered mental status: Blood cultures urine cultures CBC CMP Time spent 50 minutes Advanced care planning time 20 minutes Patient is DNR Came from [employer] message for Son and POA Lester [phone] to call back Other 3 sons at bedside Intermittent agitation Ativan IV p.r.n., tele psych consult by Dr Augustine [place] advised no 5150 started on melatonin small dose to help sleep-wake cycle Patient is more alert awake cooperative engaging in conversation not combative today. Plan discussed with: Patient My Orders Orders - WESLEY YADAV MD Procedure Category Date Status Time Melatonin (Melatonin) PHA 01/18/25 In Process 22:00 Date of Service: Jan 19, 2025 Billing Provider: WESLEY YADAV MD Common Visit Codes: [id number] INP/OBS CARE(HIGH) WESLEY YADAV MD Jan 19, 2025 10:12
--- NOTE | 2025-01-19 10:38 | DVHDS2 ---
Discharge Summary Date of Admission Jan 05, 2025 at 21:59 Date of Discharge: Jan 19, 2025 Admitting Diagnosis Abdominal pain nausea and vomiting Wounds: Left heart catheterization Labs/Diagnostic Data: Laboratory Results Test 01/17/25 10:40 01/14/25 10:25 01/12/25 15:10 01/07/25 05:15 Stool Occult Blood Negative (Negative) Stool Occult Blood Sample #3 (Negative) White Blood Count 8.2 10^3/uL (4.4-10.8) Red Blood Count 3.92 10^6/uL (4.0-5.20) Hemoglobin 10.2 g/dL (12.2-16.2) Hematocrit 32.0 % (36.0-46.0) Mean Corpuscular Volume 81.5 fL (80.0-100.0) Mean Corpuscular Hemoglobin 26.1 pg (28.0-32.0) Mean Corpuscular Hemoglobin Concent 32.0 g/dL (32.0-36.0) Red Cell Distribution Width 17.3 % (11.8-14.3) Platelet Count 257 10^3/uL (140-450) Mean Platelet Volume 8.3 fL (6.9-10.8) Neutrophils (%) (Auto) 67.7 % (37.0-80.0) Lymphocytes (%) (Auto) 15.9 % (10.0-50.0) Monocytes (%) (Auto) 11.2 % (0.0-12.0) Eosinophils (%) (Auto) 4.8 % (0.0-7.0) Basophils (%) (Auto) 0.4 % (0.0-2.0) Neutrophils # (Auto) 5.5 10 ^3/uL (1.6-8.6) Lymphocytes # (Auto) 1.3 10 ^3/uL (0.4-5.4) Monocytes # (Auto) 0.9 10 ^3/uL (0-1.3) Eosinophils # (Auto) 0.4 10 ^3/uL (0-0.8) Basophils # (Auto) 0 10 ^3/uL (0-0.2) Nucleated Red Blood Cells 0.0 % Sodium Level 135 mmol/L (136-145) Potassium Level 4.3 mmol/L (3.5-5.1) Chloride Level 100 mmol/L (98-107) Carbon Dioxide Level 26 mmol/L (20-31) Anion Gap 9 (5-15) Blood Urea Nitrogen 7 mg/dL (9-23) Creatinine 0.45 mg/dL (0.550-1.02) Glomerular Filtration Rate Calc 96 mL/min (>90) BUN/Creatinine Ratio 15.6 (10.0-20.0) Serum Glucose 127 mg/dL (74-106) Calcium Level 8.7 mg/dL (8.7-10.4) Total Bilirubin 0.4 mg/dL (0.2-1.0) Aspartate Amino Transferase (AST) 24 U/L (13-40) Alanine Aminotransferase (ALT) 14 U/L (7-40) Alkaline Phosphatase 104 U/L (46-116) Total Protein 6.3 g/dL (5.7-8.2) Albumin 3.8 g/dL (3.2-4.8) Prothrombin Time 11.5 sec (9.3-11.8) Prothrombin Time INR 1.09 (0.9-1.15) Activated Partial Thromboplast Time 32.0 SEC (24.5-34.5) Troponin I High Sensitivity 681 ng/L (</=34) Iron Level 47 ug/dL (50-170) Total Iron Binding Capacity 331 ug/dL (250-425) Percent Iron Saturation 14.2 % (15-50) Ferritin 13.4 ng/mL (10-291) Test 01/06/25 17:39 01/06/25 14:25 01/06/25 13:20 01/06/25 08:21 Urine Color Light-yellow (Yellow) Urine Clarity Clear (Clear) Urine pH 6.5 (5.0-9.0) Urine Specific [place] 1.016 (1.001-1.035) Urine Protein Negative (Negative) Urine Ketones Trace (Negative) Urine Blood Negative /uL (Negative) Urine Nitrite Negative (Negative) Urine Bilirubin Negative (Negative) Urine Urobilinogen Normal mg/dL (Negative) Urine Leukocyte Esterase Negative /uL (Negative) Urine RBC 1 /hpf (0 - 4) Urine Microscopic WBC 5 /HPF (0-5) Urine Squamous Epithelial Cells None seen /hpf (<5) Urine Bacteria None seen /hpf (None Seen) Urine Glucose Normal mg/dL (Normal) Influenza Type A Antigen Negative (Negative) Influenza Type B Antigen Negative (Negative) SARS-CoV-2 Antigen (Rapid) Negative (NEGATIVE) Ammonia < 10 umol/L (11-32) Hemoglobin A1c 5.5 % A1C (<5.7) Vitamin D 25-Hydroxy 34.4 ng/mL (30.0-100) Thyroid Stimulating Hormone (TSH) 1.46 uIU/mL (0.55-4.78) Test 01/05/25 16:22 01/05/25 15:55 Lipase 45 U/L (12-53) Urine Hyaline Casts Few /lpf (0 - 2) Other Laboratory Tests 01/14/25 10:25 Brief Hx & Hospital Course: 84-year-old female with a severe Alzheimer dementia chronic anemia brought into the hospital for abdominal pain nausea and vomiting. Found to have periumbilical hernias seen by surgeon Dr. Tabitha Fields treated conservatively with the NG tube suction IV fluids patient has improved marginally. Dr. Fields planned for hernia surgery. 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 Arzola postop patient developed confusion agitation tele psych consult was done advised no 5150 added melatonin with a which patient has significantly . Her previous medications for dementia continued. The patient developed C diff colitis treated with the p.o. Flagyl and vancomycin being discharged back to [facility] for rehab. Discussed discharge plan with the patient's son Lester who is agreeable with the plan, general condition poor but stable at the time of discharge Consults/Reason for consult Surgeon Dr. Tabitha Fields Cardiology Dr. Zoila Arzola Operations or Procedures Left heart catheterization CT abdomen pelvis without contrast Condition at Discharge: Poor Final Diagnosis/Problems List Acute small-bowel obstruction resolved C diff colitis: P.o. Flagyl and p.o. vancomycin (IV Flagyl could not be given as patient repeatedly removed IV) Acute W[place] with 90 percent block of LAD status post stents: Aspirin Plavix Periumbilical hernia: Not a candidate for surgery as the patient had recent W[place] Acute Metabolic versus toxic encephalopathy Alzheimer dementia: Melatonin continue previous home medications, tele psych advised no 5150 Severe compression fracture T12 Hypertensive heart disease without heart failure Chronic Anemia Hypercholesterolemia Severe malnutrition Discharge Disposition: Halfway Facility Discharge Instruct/Medications Diet: Cardiac 2g Na,low cholest Activity: Light activity Follow Up/Referral: [facility] up with the [place] [facility] Medications: see list 39 (Time taken for discharge summary 39 minutes) Discharge Statement: "Patient was advised to return to the ER or call 911 if any headaches, dizziness, shortness of breath, chest pain, abdominal pain, bleeding, fevers, or worsening of medical condition. Patient was counseled about treatment plan, medications, possible side effects, patientverbalized understanding. All questions were answered to the best of my ability. This discharge took greater then 30 minutes in planning, reviewing documentation, counseling the patient, and discussing with other team members." ASSESSMENT ASSESSMENT Hospital Course Improved Assessment Acute small-bowel obstruction resolved C diff colitis: P.o. Flagyl and p.o. vancomycin (IV Flagyl could not be given as patient repeatedly removed IV) Acute W[place] with 90 percent block of LAD status post stents: Aspirin Plavix Periumbilical hernia: Not a candidate for surgery as the patient had recent W[place] Acute Metabolic versus toxic encephalopathy Alzheimer dementia: Melatonin continue previous home medications, tele psych advised no 5150 Severe compression fracture T12 Hypertensive heart disease without heart failure Chronic Anemia Hypercholesterolemia Severe malnutrition Date of Service: Jan 19, 2025 Billing Provider: WESLEY YADAV MD Common Visit Codes: 88655-XJD/OBS DISCH DAY >30min WESLEY YADAV MD Jan 19, 2025 10:38
[2025-01-19] MEDS: VANCOMYCIN HCL 250 MG CAP PO SCH (14:57)
[2025-01-19] MEDS: metroNIDAZOLE 500 MG TAB PO SCH (14:57)
--- NOTE | 2025-01-19 23:13 | DVHPN2 ---
Progress Note - Dictate Date Seen: Jan 19, 2025 Medical Necessity Reason Pt with a Central, PICC or Fol: Yes The following are medically ne: Waters Catheter Reason for waters catheter: Bladder Retention/Obstruc Subjective Patient was seen and evaluated in follow up. Patient reports feeling well today. Stool culture showed Toxigenic C. difficile (toxin B gene) DNA detected. Patient is pending transfer to [facility]. Telemetry reviewed. vital signs Vital Sign Date Time Temp Pulse Resp B/P (MAP) Pulse Ox O2 Delivery O2 Flow Rate FiO2 01/19/25 09:31 69 144/78 01/19/25 08:00 Room Air* 0 21 01/19/25 07:35 97 01/19/25 05:00 97.8 19 97.8 Total Intake and Output 01/18/25 01/18/25 01/19/25 15:00 23:00 07:00 Intake Total 720 ml 450 ml Balance 720 ml 450 ml medications Current Medications Medications Dose Ordered Sig/Edward Route Start Time Stop Time Status Last Admin Dose Admin Ondansetron HCl 4 mg Q4HP PRN IV 01/05/25 21:45 01/12/25 14:18 4 MG Docusate Sodium 100 mg BIDPRN PRN PO 01/05/25 21:45 Acetaminophen 650 mg Q6HP PRN PO 01/05/25 21:45 01/18/25 18:16 650 MG Nitroglycerin 0.4 mg Q5MINP PRN SL 01/05/25 22:00 Pravastatin Sodium 40 mg HS PO 01/06/25 22:00 01/18/25 22:31 40 MG Quetiapine Fumarate 50 mg HS PO 01/06/25 22:00 01/18/25 22:30 50 MG Olanzapine 2.5 mg BID PO 01/06/25 22:00 01/19/25 09:33 2.5 MG Pantoprazole Sodium 40 mg DAILY@0600 PO 01/07/25 06:00 01/19/25 06:11 40 MG Albuterol 2.5 mg Q6HPRN PRN NEB 01/07/25 20:15 01/17/25 20:38 2.5 MG Ipratropium [place] 0.5 mg Q6HPRN PRN NEB 01/07/25 20:30 01/17/25 20:38 0.5 MG Clopidogrel Bisulfate 75 mg DAILY PO 01/14/25 10:00 01/19/25 09:33 75 MG Metoprolol Succinate 25 mg DAILY PO 01/13/25 10:00 01/19/25 09:31 25 MG Aspirin 81 mg DAILY PO 01/13/25 10:00 01/19/25 09:34 81 MG Atorvastatin Calcium 80 mg HS PO 01/12/25 22:00 01/18/25 22:30 80 MG Sacubitril/ Valsartan 1 tab BID PO 01/14/25 22:00 01/19/25 09:29 1 TAB Empaglifozin 10 mg DAILY PO 01/14/25 10:00 01/19/25 09:35 10 MG Spironolactone 25 mg DAILY PO 01/14/25 10:00 01/19/25 09:33 25 MG Melatonin 5 mg HS PO 01/18/25 22:00 01/18/25 22:30 5 MG Metronidazole 500 mg Q8HR PO 01/19/25 14:00 Vancomycin HCl 250 mg QID PO 01/19/25 12:00 objective GENERAL: A&O x2. EYES: PERRL, EOMI. Anicteric. HENT: Moist mucous membranes. LUNGS: Clear to auscultation bilaterally. CARDIOVASCULAR: Regular rate and rhythm. ABDOMEN: Soft, non-tender and non-distended. EXTREMITIES: No edema. SKIN: Warm, dry. laboratory and microbiology Laboratory Tests 01/14/25 10:25 Test 01/14/25 10:25 Range/Units Serum Glucose 127 H 74-106 mg/dL Problem List Evolved anterior wall myocardial infarction. Ischemic cardiomyopathy with LVEF of 30%. Chronic compensated HFrEF. Hypertension. Dyslipidemia. History of CVA. Obesity. Assessment/Plan Continued all current supportive medical care. Aspirin, Metoprolol,Plavix. GI prophylactics. Entresto. Nitro SL. Oral antibiotics as ordered. Additional plan as per the hospital course. Dietary Evaluation Review Comments: 1) Initiate Glucerna bid 2) Encourage optimal PO intake 3) Follow-up with cardiology, pulmonology and neurology 4) Continue to monitor I&O, labs, and skin integrity Expected Outcomes/Goals: 1) appetite and labs to improve 2) f/u in 3-5 days Plan discussed with: Patient IVÁN BRENNAN MD Jan 19, 2025 12:47
== END 2025-01-19 20:00 | DRG 321 ==
LOC: EDBD 15:40 → ER 15:40 → OVERFLOW 21:59 → TELE-EAST 01-07 17:55 → EAST 01-08 10:30 → TELE-EAST 01-12 14:23
PROVIDERS: ADMIT Family Medicine; ATTEND Family Medicine
PROC: 027034Z Dilation of Coronary Artery, One Artery with Drug-eluting Intraluminal Device, Percutaneous Approach (ICD-10-PCS; principal; 2025-01-12)
PROC: 02C03ZZ Extirpation of Matter from Coronary Artery, One Artery, Percutaneous Approach (ICD-10-PCS; 2025-01-12)
PROC: 02703ZZ Dilation of Coronary Artery, One Artery, Percutaneous Approach (ICD-10-PCS; 2025-01-12)
PROC: 4A023N7 Measurement of Cardiac Sampling and Pressure, Left Heart, Percutaneous Approach (ICD-10-PCS; 2025-01-12)
PROC: B34HZZZ Ultrasonography of Right Upper Extremity Arteries (ICD-10-PCS; 2025-01-12)
PROC: B211YZZ Fluoroscopy of Multiple Coronary Arteries using Other Contrast (ICD-10-PCS; 2025-01-12)
PROC: B215YZZ Fluoroscopy of Left Heart using Other Contrast (ICD-10-PCS; 2025-01-12)
PROC: 03HY32Z Insertion of Monitoring Device into Upper Artery, Percutaneous Approach (ICD-10-PCS; 2025-01-12)
PROC: B41FYZZ Fluoroscopy of Right Lower Extremity Arteries using Other Contrast (ICD-10-PCS; 2025-01-12)
PROC: B241ZZ3 Ultrasonography of Multiple Coronary Arteries, Intravascular (ICD-10-PCS; 2025-01-12)
DX: I21.09 ST elevation (STEMI) myocardial infarction involving other coronary artery of anterior wall (principal); E43 Unspecified severe protein-calorie malnutrition; A04.72 Enterocolitis due to Clostridium difficile, not specified as recurrent; M48.54XA Collapsed vertebra, not elsewhere classified, thoracic region, initial encounter for fracture; F02.C11 Dementia in other diseases classified elsewhere, severe, with agitation; F02.818 Dementia in other diseases classified elsewhere, unspecified severity, with other behavioral disturbance; K42.0 Umbilical hernia with obstruction, without gangrene; E87.1 Hypo-osmolality and hyponatremia; N39.0 Urinary tract infection, site not specified; J98.11 Atelectasis; I50.22 Chronic systolic (congestive) heart failure; Z66 Do not resuscitate; Z20.822 Contact with and (suspected) exposure to COVID-19; I11.0 Hypertensive heart disease with heart failure; I25.5 Ischemic cardiomyopathy; E66.9 Obesity, unspecified; D50.9 Iron deficiency anemia, unspecified; J45.909 Unspecified asthma, uncomplicated; Z68.30 Body mass index [BMI] 30.0-30.9, adult; G30.9 Alzheimer's disease, unspecified; E11.9 Type 2 diabetes mellitus without complications; J98.4 Other disorders of lung; L29.9 Pruritus, unspecified; I25.10 Atherosclerotic heart disease of native coronary artery without angina pectoris; E78.00 Pure hypercholesterolemia, unspecified; Z87.891 Personal history of nicotine dependence; Z86.73 Personal history of transient ischemic attack (TIA), and cerebral infarction without residual deficits; Z79.4 Long term (current) use of insulin
CPT/HCPCS: 36415; 71045; 74176; 74250; 80048; 80053; 81001; 82140; 82270; 82306; 82607; 82728; 82746; 83036; 83540; 83550; 83690; 84443; 84484; 85025; 85610; 85730; 87040; 87086; 87426; 87493; 87804; 92941; 92973; 92978; 93005; 93306; 93458; 94640; 96365; 96366; 96375; 97163; 99152; G0378; J2250; J2405; Q9967